=== PATIENT | female | born 2000 | race Caucasian/White ===

== ENCOUNTER → 2022-10-02 | Outpatient (CLI) | payer OTHER, SELFPAY ==
[2022-10-02 18:31] LABS: Amphetamine Urine VISTA NEGATIVE (<1000 ng/mL); Barbiturate Urine VISTA NEGATIVE (< 200 ng/mL); Benzodiazepine Urine VISTA NEGATIVE (< 200 ng/mL); Cocaine Urine VISTA NEGATIVE (< 300 ng/mL); Ecstacy Urine VISTA NEGATIVE (< 500 ng/mL); Methadone Urine VISTA NEGATIVE (< 300 ng/mL); PCP Urine VISTA NEGATIVE (< 25 ng/mL); THC Urine VISTA NEGATIVE (< 50 ng/mL); Vista UDS pH Range 7
[2022-10-06 00:07] LABS: Chlamydia By Nucleic Acid AMP Negative (Negative)
[2022-10-07 14:42] LABS: Gonococcus By Nucleic Acid AMP Negative (Negative)
[2022-10-12 18:22] LABS: HPV Reflexed? NOT INDICATED
== END | disposition home or self-care (01) ==
PROVIDERS: Referring Provider Obstetrics & Gynecology; Visit Provider Obstetrics & Gynecology
DX: Z34.00 Encounter for supervision of normal first pregnancy, unspecified trimester (principal)
CPT/HCPCS: 80307; 87086; 87491; 87591; 88175; G0145

== ENCOUNTER → 2022-11-08 | Outpatient (CLI) | payer OTHER, SELFPAY ==
[2022-11-08 14:08] LABS: Absolute Lymphocyte Count 1.75 X10^3/uL (0.83-4.51); Absolute Neutrophil Count 7.7 X10^3/uL (2.0-7.7); Basophil# 0.06 X10^3/uL; Basophil% 0.6 % (0-1); Eosinophil# 0.08 X10^3/uL; Eosinophils% 0.8 % (0-5); Hemoglobin 12.6 g/dL (12.0-15.0); Lymphocyte # 1.75 X10^3/ul (0.83-4.51); Lymphocyte % 16.8 % (19-41); Mean Corp Hgb Conc 34.1 g/dL (32-36); Mean Corpuscular Hgb 31.3 pg (27.0-32.0); Monocyte# 0.74 X10^3/uL; Monocyte% 7.1 % (0-10); NRBC Flagged by Analyzer 0 % (0-5); Neutrophil # 7.73 X10^3/uL (2.7-7.7); Neutrophil % 74.3 % (47-70); Platelet Count 202 K/mm3 (150-450); RBC Distribution Width CV 13.6 % (11.6-14.6); RBC Distribution Width SD 45.9 fl (35.1-43.9); Red Blood Count 4.02 M/mm3 (4.2-5.4); White Blood Count 10.4 K/mm3 (4.4-11.0)
[2022-11-08 15:27] LABS: HIV - WCH Non-Reactive (Nonreactive); Hepatitis B Surface Antigen Non-Reactive (Nonreactive); Hepatitis C Antibody Non-Reactive (Nonreactive); Rubella IgG Non-Reactive (Nonreactive); Syphilis Antibodies Non-reactive
== END | disposition home or self-care (01) ==
LOC: LAB 13:28
PROVIDERS: Obstetrics & Gynecology; Visit Provider Registered Nurse
DX: Z34.00 Encounter for supervision of normal first pregnancy, unspecified trimester (principal)
CPT/HCPCS: 36415; 85025; 86703; 86762; 86780; 86803; 86850; 86900; 86901; 87340

== ENCOUNTER → 2022-12-04 | Outpatient (CLI) | payer SELFPAY, OTHER ==
--- NOTE | 2022-12-04 12:27 | US_ITS ---
STUDY: SECOND AND THIRD TRIMESTER OBSTETRICAL ULTRASOUND REASON FOR EXAM: Female, 21 years old anatomy. LMP: July 24, 2022 TECHNIQUE: Transabdominal and Transvaginal TECHNICAL QUALITY: Adequate. PRIOR ULTRASOUND: None. FINDINGS: There is a single intrauterine fetus. The fetus is in a breech presentation. There is demonstrated cardiac activity with a heart rate of 152 bpm. There is a normal amniotic fluid volume. The largest amniotic fluid pocket measures 4.4 cm. The placenta is fundal, anterior and left lateral and not low lying. There are Grade 0 placental changes. The cervix measures 3.78 cm in length. The bilateral adnexal regions are normal. BIOMETRY: BPD: 4.33 cm: 19 weeks, 1 days HC: 16.36 cm: 19 weeks, 1 days AC: 14.15 cm: 19 weeks, 4 days FL: 2.78 cm: 18 weeks, 3 days CI: 74.86 FL/BPD: 64.2 FL/HC: 16.98 FL/AC: 19.64 HC/AC: 1.16 age by current US: 19 weeks, 0 days. ALMA by current US: April 29, 2023. Estimated weight: 273 grams, +/- 41 grams, 50 %. Age by LMP: 19 weeks, 0 days. ALMA by LMP: April 30, 2020. ANATOMY: Gender: Male Cranium: Normal lateral ventricles. Normal choroid plexus. Normal cerebellum. Normal cisterna magna. Normal face, nose and lips. Chest: Normal 4-chamber heart. Abdomen/Pelvis: Normal diaphragm. Normal stomach. Normal abdominal wall. Normal cord insertion. Normal 3 vessel cord. Normal kidneys. Normal bladder. Spine: Normal cervical spine. Normal thoracic spine. Normal lumbar spine. Normal sacrum. Extremities: Normal bilateral upper extremities. Normal bilateral lower extremities. US/OB Anatomy Scan IMPRESSION: 1. Live single intrauterine at 19 weeks, 1 day. ALMA is April 29, 2023. 2. EFW of 273 g. 3. Adequate amniotic fluid. 4. Fundal/anterior/left lateral grade 0 placenta. 5. Breech presentation. 6. No visualized anatomic abnormality. Electronically Signed: Curtis Kent DO at 16:06 [facility] ,
== END | disposition home or self-care (01) ==
PROVIDERS: Visit Provider Registered Nurse
DX: Z34.02 Encounter for supervision of normal first pregnancy, second trimester (principal); Z3A.14 14 weeks gestation of pregnancy
CPT/HCPCS: 76805; 76817

== ENCOUNTER → 2023-02-11 | Outpatient (CLI) | payer OTHER, SELFPAY ==
[2023-02-11 12:38] LABS: Absolute Lymphocyte Count 1.75 X10^3/uL (0.83-4.51); Absolute Neutrophil Count 8.9 X10^3/uL (2.0-7.7); Basophil# 0.09 X10^3/uL; Basophil% 0.7 % (0-1); Eosinophil# 0.12 X10^3/uL; Hematocrit 34.2 % (37-47); Hemoglobin 11.4 g/dL (12.0-15.0); Lymphocyte # 1.75 X10^3/ul (0.83-4.51); Lymphocyte % 14.4 % (19-41); Mean Corp Hgb Conc 33.3 g/dL (32-36); Mean Corpuscular Hgb 32.1 pg (27.0-32.0); Mean Corpuscular Volume 96.3 fL (81-99); Mean Platelet Vol. 10.2 fl (6.2-12.0); Monocyte# 0.84 X10^3/uL; Monocyte% 6.9 % (0-10); NRBC Flagged by Analyzer 0 % (0-5); Neutrophil # 8.88 X10^3/uL (2.7-7.7); Neutrophil % 73.1 % (47-70); Platelet Count 174 K/mm3 (150-450); RBC Distribution Width CV 13.2 % (11.6-14.6); RBC Distribution Width SD 46.3 fl (35.1-43.9); Red Blood Count 3.55 M/mm3 (4.2-5.4); White Blood Count 12.2 K/mm3 (4.4-11.0)
[2023-02-11 12:53] LABS: Glucose Challenge Gest 1H 50g 149 mg/dL (70-140)
[2023-02-11 13:27] LABS: HIV - WCH Non-Reactive (Nonreactive); Syphilis Antibodies Non-reactive
== END | disposition home or self-care (01) ==
LOC: LAB 11:17
PROVIDERS: Referring Provider Advanced Practice Midwife; Visit Provider Advanced Practice Midwife
DX: O26.899 Other specified pregnancy related conditions, unspecified trimester (principal); Z67.91 Unspecified blood type, Rh negative; Z3A.24 24 weeks gestation of pregnancy
CPT/HCPCS: 36415; 82950; 85025; 86703; 86780; 86900; 86901

== ENCOUNTER → 2023-02-20 | Outpatient (CLI) | payer OTHER, SELFPAY ==
[2023-02-20 08:23] LABS: Glucose GTT-Gestation. Fasting 88 mg/dL (<105)
[2023-02-20 08:42] LABS: Glucose GTT-Gestational 1 Hr 177 mg/dL (<190)
[2023-02-20 10:08] LABS: Glucose GTT-Gestational 2 Hr 165 mg/dL (<165)
[2023-02-20 11:17] LABS: Glucose GTT-Gestational 3 Hr 124 L (<145)
== END | disposition home or self-care (01) ==
LOC: LAB 06:57
PROVIDERS: Referring Provider Advanced Practice Midwife; Visit Provider Advanced Practice Midwife
DX: Z13.1 Encounter for screening for diabetes mellitus (principal)
CPT/HCPCS: 36415; 82951; 82952

== ENCOUNTER → 2023-04-04 | Outpatient (CLI) | payer OTHER, SELFPAY | END | disposition home or self-care (01) | LOC: LABSPEC 16:33 | PROVIDERS: Visit Provider Registered Nurse | DX: Z34.90 Encounter for supervision of normal pregnancy, unspecified, unspecified trimester (principal) | CPT/HCPCS: 87081 ==

== ENCOUNTER 2023-04-15 06:05 | Outpatient (CLI) | payer OTHER, SELFPAY ==
[2023-04-15 06:22] VITALS: TEMP 36.6; O2SAT 99
[2023-04-15 06:23] VITALS: BP 128/81; PULSE 107
[2023-04-15 06:24] VITALS: BMI 25.0
[2023-04-15 06:59] LABS: ROM Internal Control Test YES-OK TO RESULT pt. (Internal QC); ROM Patient Test Negative (Negative); Record Kit Lot#, ROM+ K1374
--- NOTE | 2023-04-15 08:27 | OB.TRI.HP_ITS ---
HPI - General HPI Narrative SUNIL GARCIA, is a 22 F who presents at 37+6 with contractions. denies lof/vb. good fm. Maternal Data Information ALMA Calculator Estimated Delivery Date Method Current WG Current Estimate 04/30/23 LMP (Certain) 37w 6d Other Estimates 04/27/23 Ultrasound #1 38w 2d PFSH PFSH Medical History Hx of thyroid disease Hx: UTI (urinary tract infection) Home Medications multivitamin no.47-iron fum 27 mg-folate no.1 1 mg-dha 300 mg capsule (PNV-DHA) 1 cap PO DAILY 09/25/22 [History Last Taken 04/14/23 20:00] Allergy/AdvReac Type Severity Reaction Status Date / Time No Known Allergies Allergy Verified 04/15/23 06:40 Family History Grandfather Lung cancer, Onset Age: 70 Paternal Social History adopted: No household members: spouse housing: house current occupational status: unemployed current occupation: housewife pets and animals: No history of recent travel: No sexually active: Yes Smoking Status: Never smoker alcohol intake: never substance use type: does not use well-balanced diet: daily or most days caffeine: No eating out: rarely or never during the past year weight has: remained stable what type of physical activity do you participate in: none parveen/sabianist: [facility] seatbelt use: sometimes do you feel safe at home: Yes additional social history: [place] - [employer] History 1 Elective abortions Hx Para 0 Spontaneous abortions Hx # Term Pregnancies Ectopic pregnancies Hx # Pregnancies Multiple births # of living children Visit Details Expected Delivery Route/Plan Labor Preferences- CB/BF classes: recommended labor support person: [place] labor intervention preferences: [] pain management options preferred: [] cut cord/dad catch: yes :yes PP control planned: nfp/condoms discussed possible routes of delivery and associated risks: special requests: [] Plans Covid status: declines Flu vaccine: declines Tdap vaccine: declines Rhogam: will need at 28 weeks, PRN for bleeding and pp LARC form signed: completed movement and labor precautions reviewed. Problem list reviewed and updated with the most current plan of care details and appropriate orders placed. Relevant counseling for the gestational age provided. Continue routine care and follow up unless otherwise noted in visit notes/problem list details OB Flowsheet Initial Weight: Not Recorded Date -?-?-?-?-?-?-?-?-?-?-?-?- EGA Weight BP Urine Prot -?-?-?-?-?-?-?-?-?-?-?-?- Glucose FHR FuHt Pres Dilation -?-?-?-?-?-?-?-?-?-?-?-?- Effaced St Visit Note 10/02/22 -?-?-?-?-?-?-?-?-?-?-?-?- 10w 0d 112 lb 2 oz 119/75 -?-?-?-?-?-?-?-?-?-?-?-?- 183 -?-?-?-?-?-?-?-?-?-?-?-?- JV- single live IUP measuring 10 weeks 3 days. CRL consistent with LMP. pap and gc/ct collected. 10/30/22 -?-?-?-?-?-?-?-?-?-?-?-?- 14w 0d 112 lb 122/76 Negative -?--?-?-?-?-?-?-?-?-?-?-?- Negative 155 -?-?-?-?-?-?-?-?-?-?-?-?- LC- doing well. no vb/cramping. reviewed nutritional methods for constipation. will obtain nob labs next week.declines afp 11/20/22 -?-?-?-?-?-?-?-?-?-?-?-?- 17w 0d 118 lb 108/69 Negative -?-?-?-?-?-?-?-?-?-?-?-?- Negative 138 -?-?-?-?-?-?-?--?-?-?-?-?- LC- no concerns. has anatomy scheduled.no vb/cramping. 12/18/22 -?-?-?-?-?-?-?-?-?-?-?-?- 21w 0d 122 lb 121/70 Negative -?-?-?-?-?-?-?-?-?-?-?-?- Negative 153 -?-?-?-?-?-?-?-?-?-?-?-?- LC- no concerns. noted some constipation over last couple weeks. resolved. no LOF/VB/Ctx. + Flutters. 01/10/23 -?-?-?-?-?-?-?-?-?-?-?-?- 24w 2d 127 lb 115/71 Negative -?-?-?-?-?-?-?-?-?-?-?-?- Negative 150 24 -?-?-?-?-?-?-?-?-?-?-?-?- KW-no concerns. no LOF/VB/CTX. + FM. US reviewed. 02/11/23 -?-?-?-?-?-?-?-?-?-?-?-?- 28w 6d 131 lb 103/68 Negative -?-?-?-?-?-?-?-?-?-?-?-?- Negative 145 29 -?-?-?-?-?-?-?-?-?-?-?-?- SM- no vb lof go od fm no regular ctx rhogam and cbc gct today declined tdap 03/05/23 -?-?-?-?-?-?-?-?-?-?-?-?- 32w 0d 135 lb 110/68 Negative -?-?-?-?-?-?-?-?-?-?-?-?- Negative 150 31 -?-?-?-?-?-?-?-?-?-?-?-?- LC- LC- no vb/ctx/lof. good fm. having some rib discomforts and round ligament pain. charlene recommended. 03/21/23 -?-?-?-?-?-?-?-?-?-?-?-?- 34w 2d 139 lb 114/72 Negative -?-?-?-?-?-?-?-?-?-?-?-?- Negative 145 33 -?-?-?-?-?-?-?-?-?-?-?-?- LC- no vb/ctx/lo f. good fm. larc signed. 04/04/23 -?-?-?-?-?-?-?-?-?-?-?-?- 36w 2d 140 lb 111/74 Negative -?-?-?-?-?-?-?-?-?-?-?-?- Negative 140 36 0 -?-?-?-?-?-?-?-?-?-?-?-?- 20 -3 LC- no vb/ ctx/lof. good fm. mild yeast infection, not bothersome, declines treatment. gbs obtained today 04/11/23 -?-?-?-?-?-?-?-?-?-?-?-?- 37w 2d 144 lb 8 oz 111/74 Nega tive -?-?-?-?-?-?-?-?-?-?-?-?- Negative 135 36 0 -?-?-?-?-?-?-?-?-?-?-?-?- 50 -3 KW-+FM. no lof/vb. some irregular cramping/lower back pain. in ER last night with GI virus. encouraged hydration KW-+FM. no lof/vb. some irre gular cramping/lower back pain. in ER last night with GI virus. encouraged hydration. GBS neg Notes Visit Date: 11/20/22 Last Updated by: Wandy Metcalf CNM sister in law currently with a palliative care case. cardiac and genetic anomalies. NST FHR Rate Baby A Baseline: 140 Variability:: Moderate Accelerations:: 15 x 15 Decelerations:: None NST Reactive:: Yes FHR Category:: Category I Uterine Activity:: irregular Assessment & Plan (1) False labor after 37 completed weeks of gestation: COMMENT: no change in cervical exam. labor precautions given PLAN: Patient presents for triage evaluation secondary to contractions. now comfortable FHT: Moderate variability reactive no decelerations category I tracing Loop: irregular Contractions Assessment and plan: Reactive NST, reassuring maternal and status patient discharged to home to follow-up in office on . See problem list details for additional plan information. Charges/Coding Procedures Urinary/Genital 52xxx-59xxx: 59496-58 non-stress test Interp Multi Select Codes Urinary/Genital Urinary/Genital CPT Codes: 99761-60 non-stress test Interp
== END 2023-04-15 08:45 | disposition home or self-care (01) ==
LOC: WPOUT 06:11 → WP 06:12
PROVIDERS: Referring Provider Obstetrics & Gynecology; Visit Provider Obstetrics & Gynecology
DX: O47.1 False labor at or after 37 completed weeks of gestation (principal); Z3A.37 37 weeks gestation of pregnancy
CPT/HCPCS: 59025; 59050; 84112; 99221; G0378

== ENCOUNTER 2023-04-22 10:15 | Inpatient (IN) | payer SELFPAY, OTHER ==
[2023-04-22] VITALS (51 sets, daily range): BP systolic 63–133; BP diastolic 32–79; PULSE 65–120; TEMP 36.3–36.6; O2SAT 96–100; BMI 25.0
[2023-04-22 11:18] LABS: Absolute Lymphocyte Count 2.06 X10^3/uL (0.83-4.51); Basophil# 0.06 X10^3/uL; Basophil% 0.5 % (0-1); Eosinophil# 0.13 X10^3/uL; Eosinophils% 1.1 % (0-5); Hematocrit 39.4 % (37-47); Hemoglobin 13.5 g/dL (12.0-15.0); Lymphocyte # 2.06 X10^3/ul (0.83-4.51); Lymphocyte % 17.9 % (19-41); Mean Corp Hgb Conc 34.3 g/dL (32-36); Mean Corpuscular Hgb 32.5 pg (27.0-32.0); Mean Corpuscular Volume 94.9 fL (81-99); Mean Platelet Vol. 11.1 fl (6.2-12.0); Monocyte# 1.05 X10^3/uL; Monocyte% 9.1 % (0-10); NRBC Flagged by Analyzer 0 % (0-5); Neutrophil # 8.02 X10^3/uL (2.7-7.7); Neutrophil % 69.8 % (47-70); Platelet Count 171 K/mm3 (150-450); RBC Distribution Width CV 13.2 % (11.6-14.6); RBC Distribution Width SD 45.3 fl (35.1-43.9); Red Blood Count 4.15 M/mm3 (4.2-5.4); White Blood Count 11.5 K/mm3 (4.4-11.0)
[2023-04-22 12:03] LABS: Syphilis Antibodies Non-reactive
--- NOTE | 2023-04-22 12:46 | HP.PCM.OB_ITS ---
HPI - General General Date of Admission: 04/22/23 HPI Narrative SUNIL GARCIA, is a 22 F who presents G1, P0 at 38+6 with leaking of fluid since 7 AM. Was noted to be green-tinged. Positive movement, denies vaginal bleeding. Noted some tightening but no consistent contractions. course uncomplicated. rh negative status, received rhogam. GBS negative Maternal Data Information ALMA Calculator Estimated Delivery Date Method Current WG Current Estimate 04/30/23 LMP (Certain) 38w 6d Other Estimates 04/27/23 Ultrasound #1 39w 2d PFSH PFSH Medical History (Updated 04/22/23 @ 12:49 by Wandy Metcalf CNM) Hx: UTI (urinary tract infection) Home Medications multivitamin no.47-iron fum 27 mg-folate no.1 1 mg-dha 300 mg capsule (PNV-DHA) 2 cap PO DAILY 09/25/22 [History Last Taken 1 Day Ago ~04/21/23] Magnesium Complex 2 cap PO.IVFORM DAILY 04/22/23 [History Last Taken 1 Day Ago ~04/21/23] Allergy/AdvReac Type Severity Reaction Status Date / Time No Known Allergies Allergy Verified 04/22/23 11:43 Family History Grandfather Lung cancer, Onset Age: 70 Paternal Social History adopted: No household members: spouse housing: house current occupational status: unemployed current occupation: housewife pets and animals: No history of recent travel: No sexually active: Yes Smoking Status: Never smoker alcohol intake: never substance use type: does not use well-balanced diet: daily or most days caffeine: No eating out: rarely or never during the past year weight has: remained stable what type of physical activity do you participate in: none parveen/zoroastrianism: [place] seatbelt use: sometimes do you feel safe at home: Yes additional social history: [place] - [employer] History 1 Elective abortions Hx Para 0 Spontaneous abortions Hx # Term Pregnancies Ectopic pregnancies Hx # Pregnancies Multiple births # of living children Visit Details Expected Delivery Route/Plan Labor Preferences- CB/BF classes: recommended labor support person: [place] labor intervention preferences: [] pain management options preferred: [] cut cord/dad catch: yes :yes PP control planned: nfp/condoms discussed possible routes of delivery and associated risks: special requests: [] Plans Covid status: declines Flu vaccine: declines Tdap vaccine: declines Rhogam: will need at 28 weeks, PRN for bleeding and pp LARC form signed: completed movement and labor precautions reviewed. Problem list reviewed and updated with the most current plan of care details and appropriate orders placed. Relevant counseling for the gestational age provided. Continue routine care and follow up unless otherwise noted in visit notes/problem list details OB Flowsheet Initial Weight: Not Recorded Date -?-?-?-?-?-?-?-?-?-?-?-?- EGA Weight BP Urine Prot -?-?-?-?-?-?-?-?-?-?-?-?- Glucose FHR FuHt Pres Dilation -?-?-?-?-?-?-?-?-?-?-?-?- Effaced St Visit Note 10/02/22 -?-?-?-?-?-?-?-?-?-?-?-?- 10w 0d 112 lb 2 oz 119/75 -?-?-?-?-?-?-?-?-?-?-?-?- 183 -?-?-?-?-?-?-?-?-?-?-?-?- JV- single live IUP measuring 10 weeks 3 days. CRL consistent with LMP. pap and gc/ct collected. 10/30/22 -?-?-?-?-?-?-?-?-?-?-?-?- 14w 0d 112 lb 122/76 Negative -?-?--?-?-?-?-?-?-?-?-?-?- Negative 155 -?-?-?-?-?-?-?-?-?-?-?-?- LC- doing well. no vb/cramping. reviewed nutritional methods for constipation. will obtain nob labs next week.declines afp 11/20/22 -?-?-?-?-?-?-?-?-?-?-?-?- 17w 0d 118 lb 108/69 Negative -?-?-?-?-?-?-?-?-?-?-?-?- Negative 138 -?-?-?-?-?-?-?-?--?-?-?-?- LC- no concerns. has anatomy scheduled.no vb/cramping. 12/18/22 -?-?-?-?-?-?-?-?-?-?-?-?- 21w 0d 122 lb 121/70 Negative -?-?-?-?-?-?-?-?-?-?-?-?- Negative 153 -?-?-?-?-?-?-?-?-?-?-?-?- LC- no concerns. noted some constipation over last couple weeks. resolved. no LOF/VB/Ctx. + Flutters. 01/10/23 -?-?-?-?-?-?-?-?-?-?-?-?- 24w 2d 127 lb 115/71 Negative -?-?-?-?-?-?-?-?-?-?-?-?- Negative 150 24 -?-?-?-?-?-?-?-?-?-?-?-?- KW-no concerns. no LOF/VB/CTX. + FM. US reviewed. 02/11/23 -?-?-?-?-?-?-?-?-?-?-?-?- 28w 6d 131 lb 103/68 Negative -?-?-?-?-?-?-?-?-?-?-?-?- Negative 145 29 -?-?-?-?-?-?-?-?-?-?-?-?- SM- no vb lof go od fm no regular ctx rhogam and cbc gct today declined tdap 03/05/23 -?-?-?-?-?-?-?-?-?-?-?-?- 32w 0d 135 lb 110/68 Negative -?-?-?-?-?-?-?-?-?-?-?-?- Negative 150 31 -?-?-?-?-?-?-?-?-?-?-?-?- LC- LC- no vb/ctx/lof. good fm. having some rib discomforts and round ligament pain. charlene recommended. 03/21/23 -?-?-?-?-?-?-?-?-?-?-?-?- 34w 2d 139 lb 114/72 Negative -?-?-?-?-?-?-?-?-?-?-?-?- Negative 145 33 -?-?-?-?-?-?-?-?-?-?-?-?- LC- no vb/ctx/lo f. good fm. larc signed. 04/04/23 -?-?-?-?-?-?-?-?-?-?-?-?- 36w 2d 140 lb 111/74 Negative -?-?-?-?-?-?-?-?-?-?-?-?- Negative 140 36 0 -?-?-?-?-?-?-?-?-?-?-?-?- 20 -3 LC- no vb/ ctx/lof. good fm. mild yeast infection, not bothersome, declines treatment. gbs obtained today 04/11/23 -?-?-?-?-?-?-?-?-?-?-?-?- 37w 2d 144 lb 8 oz 111/74 Nega tive -?-?-?-?-?-?-?-?-?-?-?-?- Negative 135 36 0 -?-?-?-?-?-?-?-?-?-?-?-?- 50 -3 KW-+FM. no lof/vb. some irregular cramping/lower back pain. in ER last night with GI virus. encouraged hydration KW-+FM. no lof/vb. some irre gular cramping/lower back pain. in ER last night with GI virus. encouraged hydration. GBS neg 04/18/23 -?-?-?-?-?-?-?-?-?-?-?-?- 38w 2d 144 lb 6 oz 109/75 Nega tive -?-?-?-?-?-?-?-?-?-?-?-?- Negative 140 36 0 -?-?-?-?-?-?-?-?-?-?-?-?- 50 -2 KW- +FM. n o lof/vb/ct. labor precautions. Notes Visit Date: 11/20/22 Last Updated by: Wandy Metcalf, JAMIEM sister in law currently with a palliative care case. cardiac and genetic anomalies. NST FHR Rate Baby A Baseline: 150 Variability:: Moderate Accelerations:: 15 x 15 Decelerations:: None NST Reactive:: Yes FHR Category:: Category I ROS Cardiovascular Cardiovascular: Denies abdominal pain, chest pain, diaphoresis or dyspnea Respiratory/Chest Respiratory/Chest: Denies change in mental status, chest congestion, chest tightness, cough, shortness of breath at rest, shortness of breath with exertion, breast mass, breast pain, breast skin changes, breast swelling, change in breast shape or nipple discharge Genitourinary Genitourinary: Reports change in urinary stream Musculoskeletal Musculoskeletal: Reports none Integumentary Integumentary: Reports none Neurologic Neurologic: Reports none Psychiatric Psychiatric: Reports none Endocrine Endocrinology: Reports none Hematologic/Lymphatic Hematologic/Lymphatic: Reports none Allergic/Immunologic Allergic/Immunologic: Reports none Vital Signs Vital Signs Vital Signs: 04/22/23 09:58 04/22/23 09:58 04/22/23 09:57 Temperature Pulse Rate 113 H Blood Pressure 110/71 BP Systolic 110 BP Diastolic 71 Pulse Ox 98 04/22/23 10:00 Temperature 97.5 F L Pulse Rate Blood Pressure BP Systolic BP Diastolic Pulse Ox Weight Weight: 141 lb Body Mass Index (BMI) 25.0 Physical Exam Const alert, oriented x3 and no apparent distress General Appearance: cooperative, comfortable and well kempt Orientation / Consciousness: awake and oriented to person Exam Limitations: no limitations HEENT normocephalic Neck full ROM Chest inspection of chest normal Resp normal respiratory effort, normal air movement and no retractions Effort and Inspection: able to speak in complete sentences and symmetric chest movement Cardio regular rate Peripheral Pulses: pulses 2+ throughout GI normal to inspection, nondistended, normoactive bowel sounds Inspection: gravid no CVA tenderness and appearance of the vagina normal External Female Exam: normal appearance of the urethra; Negative for external lesion OB / External & Speculum: external exam normal Manual OB Exam: estimated gestational size appropriate and presentation cephalic Uterus Palpation: Negative for uterus tender Extremity normal to inspection Skin no rashes or lesions noted Neuro deep tendon reflexes 2+ bilaterally and gait normal Motor Exam: strength 5/5 throughout and clonus absent Psych Activity / Motor Behavior: appropriate eye contact Speech: normal speech Labs Labs Labs: Blood Type O NEGATIVE Antibody Screen NEGATIVE Hct 39.4 % (37-47) Hgb 13.5 g/dL (12.0-15.0) Obstetrics US Syphilis Total Ab Non-reactive Rubella IgG Antibody Non-Reactive (Nonreactive) Hep Bs Antigen Non-Reactive (Nonreactive) Chlamydia DNA (MARIAH) Negative (Negative) Neisseria gonorrhoeae DNA (MARIAH) Negative (Negative) HIV 1&2 Antibody Non-Reactive (Nonreactive) Glucose 1 Hr 50 gm 149 mg/dL (70-140) H Assessment & Plan (1) : QUALIFIERS: Weeks of gestation: 38 weeks Qualified Code(s): Z3A.38 - 38 weeks gestation of COMMENT: GBS negative. normal anatomy scan. discussed genetic & carrier testing- declines at new ob (2) Supervision of normal first : QUALIFIERS: Trimester: second trimester Qualified Code(s): Z34.02 - Encounter for supervision of normal first , second trimester COMMENT: PRR , ALMA 04/30/23, boy [employer] (3) Rh negative status during : COMMENT: rhogam at 28 weeks, prn for bleeding and pp. (4) SROM (spontaneous rupture of membranes): COMMENT: meconium, pedi at delivery PLAN: Plan Patient presents with SROM since 0700 plan expectant management for , pitocin PRN if no cervical change Pain management: plans epidural. GBS negative. Management of any complications: none I have reviewed the [facility] and made any clinically relevant updates. reviewed exam, poc and admission with Dr. Corbett. agrees with above plan.
[2023-04-22] MEDS: Oxytocin 15 Units/NS 250ml 15 UNITS/250 ML IV.SOLN 2 UNITS IV (13:28)
[2023-04-22] MEDS: Lactated Ringers 1,000 ML 50 ML IV (13:28)
[2023-04-22] MEDS: LACTATED RINGERS 500 ML 999 ML IV ×3 (14:21→22:40)
[2023-04-22] MEDS: miSOPROStol 25 MCG TABLET PO (15:54)
[2023-04-22] MEDS: fentaNYL-bupivacaine (epidural) 100 ML BAG EPIDURAL (21:24)
[2023-04-22] MEDS: Ondansetron 4 MG/2 ML Vial IV (21:36)
[2023-04-23] VITALS (69 sets, daily range): BP systolic 81–134; BP diastolic 46–80; PULSE 76–141; RESP 16; TEMP 36.6–37.1; O2SAT 91–100
[2023-04-23] MEDS: Lactated Ringers 1,000 ML 200 ML IV ×2 (02:35→07:02)
[2023-04-23] MEDS: 0.9% Saline Lock 10 ML Syringe IV (02:47)
[2023-04-23] MEDS: Ondansetron 4 MG/2 ML Vial IV ×2 (02:47→07:30)
[2023-04-23] MEDS: LACTATED RINGERS 500 ML 999 ML IV (03:24)
[2023-04-23] MEDS: LACTATED RINGERS 500 ML IV (03:37)
[2023-04-23] MEDS: fentaNYL-bupivacaine (epidural) 100 ML BAG EPIDURAL (07:02)
[2023-04-23] MEDS: Methylergonovine 0.2 MG/ML Ampul IM (08:29)
[2023-04-23] MEDS: Oxytocin 15 Units/NS 250ml 15 UNITS/250 ML IV.SOLN 83 UNITS IV (08:57)
--- NOTE | 2023-04-23 09:52 | EX.PCM.OBRPT ---
Assessment & Plan (1) False labor after 37 completed weeks of gestation: COMMENT: no change in cervical exam. labor precautions given (2) Abnormal glucose level: COMMENT: 3 HR GTT-Normal (3) Rh negative status during : COMMENT: rhogam at 28 weeks, prn for bleeding and pp. (4) Supervision of normal first : QUALIFIERS: Trimester: second trimester Qualified Code(s): Z34.02 - Encounter for supervision of normal first , second trimester COMMENT: PRR , ALMA 04/30/23, boy [employer] (5) : QUALIFIERS: Weeks of gestation: 38 weeks Qualified Code(s): Z3A.38 - 38 weeks gestation of COMMENT: GBS negative. normal anatomy scan. discussed genetic & carrier testing- declines at new ob (6) SROM (spontaneous rupture of membranes): COMMENT: meconium, pedi at delivery if no cervical change in 6 hours will start cytotec for cervical ripening. Maternal Data Information ALMA Calculator Estimated Delivery Date Method Current WG Current Estimate 04/30/23 LMP (Certain) 39w 0d Other Estimates 04/27/23 Ultrasound #1 39w 3d Final ALMA: 04/30/23 Final ALMA Source: LMP Gestational age: 39 weeks 0 days [place] Doctor Who Attended Delivery: Yun Floyd Vaginal Delivery Operative Information Date of Procedure: 04/23/23 Pre-Operative Diagnosis: @ 39 weeks 0 days, srom , mecoinum stained fluid Post-Operative Diagnosis: @ 39 weeks 0 days, srom , mecoinum stained fluid Surgery / Procedure Performed: Spontaneous Vaginal Delivery Type of Anesthesia: Epidural Drain: Damon to straight drain Estimated Blood Loss: 200cc Findings Description of Procedure: Patient began pushing and delivered the head in the DAVION presentation. The head was delivered atraumatically. The anterior and posterior shoulders delivered without complication followed by the rest of the and the was placed on the maternal abdomen. Delayed cord clamping was employed for approximately 60 seconds. Cord was clamped and cut and gentle traction was applied to the cord and the placenta delivered spontaneously immediately following it was noted to be intact with three-vessel cord. The perineum and vagina were inspected and noted to have a 1st degree perineal laceration. EBL was 200cc. Patient and tolerated delivery well. Presentation: Vertex Amniotic Fluid Description: Thick meconium Placental Delivery Description: Spontaneous Placenta Disposition: [facility] Specimen(s) Removed: placenta Cord Vessel Description: 3 Vessels Cord Entanglement: None A Gender: Male (1 minute): 7 (5 minute): 8 Delayed Cord Clamping: No Post Vaginal Delivery Medications Given After Delivery: IV Pitocin and IM Methergin Episiotomy Description: None Laceration: 1st degree Complication Complications: None Multi Select Codes Urinary/Genital Urinary/Genital CPT Codes: 51741 Vaginal Delivery [facility]
--- NOTE | 2023-04-23 09:55 | DCINST_ITS ---
Discharge Instructions Diet Discharge Diet: No restrictions Activity Discharge Activity: Return to Normal Activity, May Not Drive (while taking narcotic pain medications.) and May Shower May resume sexual activity in: 4-6 weeks Dressing / Incision Call your doctor if your incision/area has: Continuous Slow Oozing, Sudden Increased Bleeding, Increased Pain/ Swelling, Increased Redness and Foul Smelling Discharge Follow Up Care Please Follow Up With: Dominique Corbett, DO When: Call [phone] to make an appointment with your doctor in 6 weeks. If you had elevated blood pressure or 4th degree laceration, you will need to be seen in 2 weeks. Test Results: Test results from this visit will be discussed in further detail at your follow- up appointment, if applicable. Discharge Plan Admission Admit Date/Time: 04/22/23 10:15 Attending Provider: Dominique Corbett Primary Care Provider: Care Physician,No Primary Consulting Providers: Wandy Metcalf Discharge Orders/Prescriptions Prescriptions: No Action PNV-DHA 27 mg iron-1 mg -300 mg capsule 2 cap PO DAILY Magnesium Complex 2 cap PO.IVFORM DAILY Referrals / Follow Up: Care Physician,No Primary [Primary Care Provider] -
[2023-04-23] MEDS: Ibuprofen 600 MG Tablet PO (14:42)
[2023-04-23] MEDS: Acetaminophen 500 MG Tablet 1000 MG PO (21:07)
[2023-04-24 00:22] VITALS: BP 103/53; PULSE 100; RESP 16; TEMP 36.6; O2SAT 96
[2023-04-24 04:55] VITALS: BP 90/53; PULSE 83; RESP 16; TEMP 36.7; O2SAT 97
[2023-04-24 08:35] VITALS: BP 96/54; PULSE 100; RESP 15; TEMP 36.6; O2SAT 98
--- NOTE | 2023-04-24 08:44 | PCM.PN.OB ---
Subjective Subjective Patient doing well without complaints. Tolerating PO. Ambulating and voiding without difficulty. Feeding well. Denies chest pain, shortness of breath, calf pain/swelling, fevers, chills, lightheadedness. Objective Data Objective Data Vital Signs: Vital Signs Temp Pulse Resp BP Pulse Ox O2 Del Method 97.8 F 100 15 96/54 L 98 Room Air 04/24/23 08:35 04/24/23 08:35 04/24/23 08:35 04/24/23 08:35 04/24/23 08:35 04/24/23 08:35 Oxygen Delivery Method Room Air Weight: 141 lb Body Mass Index (BMI) 25.0 Intake & Output: Intake and Output for Last 24 Hours 04/22/23 04/23/23 04/24/23 23:59 23:59 23:59 Intake Total 1873.24 / 1873.24 3287.56 / 3287.56 Output Total 2850 / 2850 Balance 1873.24 / 1873.24 437.56 / 437.56 Lab / Micro Data Result Diagrams: 04/22/23 11:00 Physical Exam Const alert and no apparent distress Neck full ROM Chest inspection of chest normal Nipple/Areola: nipples/areola normal Resp normal respiratory effort, normal air movement and no retractions Cardio regular rate and regular rhythm GI normal to inspection, nondistended, normoactive bowel sounds GI Narrative: fundus firm, 1 below u, mild lochia. no clots Extremity normal to inspection, full ROM, no calf tenderness and no pedal edema Skin no rashes or lesions noted Psych mental status grossly normal Assessment & Plan (1) (spontaneous vaginal delivery): COMMENT: ROXI, 39weeks. [place] Gentile PLAN: s/p PPD # 1 1. routine post delivery care 2. breast feeding- support given 3. rh positive 4. rubella immune 5. d/c home today for early discharge. has follow up
[2023-04-24 12:29] VITALS: BP 99/58; PULSE 103; RESP 15
== END 2023-04-24 13:55 | disposition home or self-care (01) | DRG 807 ==
LOC: WP 10:33 → WPOUT 04-23 10:41
PROVIDERS: Registered Nurse; Admitting Provider Obstetrics & Gynecology; Referring Provider Obstetrics & Gynecology; Visit Provider Obstetrics & Gynecology
DX: O99.814 Abnormal glucose complicating childbirth (principal); Z37.0 Single live birth; O77.0 Labor and delivery complicated by meconium in amniotic fluid; Z3A.39 39 weeks gestation of pregnancy
CPT/HCPCS: 59025; 59050; 76815; 85025; 86780; 86850; 86870; 86900; 86901; 99221; J7120; A4216; G0378; J2405

== ENCOUNTER → 2024-04-02 | Outpatient (CLI) | payer OTHER, SELFPAY ==
[2024-04-02 10:15] LABS: Absolute Lymphocyte Count 1.93 X10^3/uL (0.83-4.51); Absolute Neutrophil Count 5.3 X10^3/uL (2.0-7.7); Basophil# 0.05 X10^3/uL; Basophil% 0.6 % (0-1); Eosinophils% 1.2 % (0-5); Hematocrit 38.7 % (37-47); Hemoglobin 13.2 g/dL (12.0-15.0); Lymphocyte # 1.93 X10^3/ul (0.83-4.51); Lymphocyte % 23.9 % (19-41); Mean Corp Hgb Conc 34.1 g/dL (32-36); Mean Corpuscular Hgb 30.6 pg (27.0-32.0); Mean Corpuscular Volume 89.8 fL (81-99); Mean Platelet Vol. 10.4 fl (6.2-12.0); Monocyte# 0.65 X10^3/uL; NRBC Flagged by Analyzer 0 % (0-5); Neutrophil # 5.34 X10^3/uL (2.7-7.7); Neutrophil % 66.1 % (47-70); Platelet Count 219 K/mm3 (150-450); RBC Distribution Width CV 13.3 % (11.6-14.6); RBC Distribution Width SD 44.3 fl (35.1-43.9); Red Blood Count 4.31 M/mm3 (4.2-5.4); White Blood Count 8.1 K/mm3 (4.4-11.0)
[2024-04-02 11:17] LABS: HIV - WCH Non-Reactive (Nonreactive); Hepatitis B Surface Antigen Non-Reactive (Nonreactive); Hepatitis C Antibody Non-Reactive (Nonreactive); Rubella IgG Non-Reactive (Nonreactive); Syphilis Antibodies Non-reactive
[2024-04-07 21:07] LABS: Chlamydia By Nucleic Acid AMP Negative (Negative); Gonococcus By Nucleic Acid AMP Negative (Negative)
== END | disposition home or self-care (01) ==
PROVIDERS: Referring Provider Advanced Practice Midwife; Visit Provider Advanced Practice Midwife
DX: O09.90 Supervision of high risk pregnancy, unspecified, unspecified trimester (principal); Z3A.00 Weeks of gestation of pregnancy not specified
CPT/HCPCS: 36415; 85025; 86703; 86762; 86780; 86803; 86850; 86900; 86901; 87086; 87088; 87340; 87491; 87591

== ENCOUNTER → 2024-06-01 | Outpatient (CLI) | payer SELFPAY, OTHER ==
--- NOTE | 2024-06-01 15:34 | US_ITS ---
EXAM: US SECOND OR THIRD TRIMESTER , TRANSABDOMINAL AND TRANSVAGINAL CLINICAL INDICATION: anatomy TECHNIQUE: Transabdominal and endovaginal obstetrical ultrasound of the maternal pelvis and a second or third trimester with image documentation. Endovaginal imaging was used for better evaluation of the fetus and adnexa. COMPARISON: No relevant prior studies available. FINDINGS: FETUS: Single viable IUP. HEART RATE: heart rate: 160 bpm. PRESENTATION: Variable presentation. PLACENTA: Anterior placenta. No placenta previa. No abruption. AMNIOTIC FLUID: Maximal vertical pocket of amniotic fluid is 2.9 cm. ANATOMY: There is a 1.7 x 1.5 x 1.9 cm echogenic intracardiac focus (EIF) within the left ventricle. The spine is not optimally assessed. Intracranial structures to include the lateral ventricles, cerebellum, cisterna magna appear normal. The face, nose, and lips are visualized. Four-chamber heart is identified. The diaphragm, stomach, and closed abdominal wall are visualized. The umbilical cord insertion is present and there is a three-vessel cord. The urinary bladder appears normal. Normal kidneys without dilation. BIOMETRICS GESTATIONAL AGE: Estimated gestational age: 18 weeks, 2 days. ALMA: 10/31/2024. EFW: Estimated weight: 229 g (11.01%). BPD: 3.93 cm. HC: 15.02 cm. AC: 13.4 cm. FL: 2.47 cm. MATERNAL: UTERUS: No significant abnormality. No myometrial mass. CERVIX: The cervix is closed measuring 4.3 cm. ADNEXA: No significant abnormality. No adnexal masses. FREE FLUID: None. IMPRESSION: 1. Single viable IUP measuring 18 weeks, 2 days and 229 g. 2. There is a 1.7 x 1.5 x 1.9 cm echogenic intracardiac focus (EIF) within the left ventricle. EIF is considered a normal variation, but screening tests may be desirable to test for any abnormalities. 3. The spine is not optimally assessed. Consider follow-up imaging for detailed evaluation in one to 2 weeks. Electronically Signed: Miguelito Chiang DO at 23:57 EDT , EXAM: US SECOND OR THIRD TRIMESTER , TRANSABDOMINAL AND TRANSVAGINAL CLINICAL INDICATION: anatomy TECHNIQUE: Transabdominal and endovaginal obstetrical ultrasound of the maternal pelvis and a second or third trimester with image documentation. Endovaginal imaging was used for better evaluation of the fetus and adnexa. COMPARISON: No relevant prior studies available. FINDINGS: FETUS: Single viable IUP. HEART RATE: heart rate: 160 bpm. PRESENTATION: Variable presentation. PLACENTA: Anterior placenta. No placenta previa. No abruption. AMNIOTIC FLUID: Maximal vertical pocket of amniotic fluid is 2.9 cm. ANATOMY: There is a 1.7 x 1.5 x 1.9 cm echogenic intracardiac focus (EIF) within the left ventricle. The spine is not optimally assessed. Intracranial structures to include the lateral ventricles, cerebellum, cisterna magna appear normal. The face, nose, and lips are visualized. Four-chamber heart is identified. The diaphragm, stomach, and closed abdominal wall are visualized. The umbilical cord insertion is present and there is a three-vessel cord. The urinary bladder appears normal. Normal kidneys without dilation. BIOMETRICS GESTATIONAL AGE: Estimated gestational age: 18 weeks, 2 days. ALMA: 10/31/2024. EFW: Estimated weight: 229 g (11.01%). BPD: 3.93 cm. HC: 15.02 cm. AC: 13.4 cm. FL: 2.47 cm. MATERNAL: UTERUS: No significant abnormality. No myometrial mass. CERVIX: The cervix is closed measuring 4.3 cm. ADNEXA: No significant abnormality. No adnexal masses. FREE FLUID: None. US/OB Anatomy w/ Transvaginal
== END | disposition home or self-care (01) ==
LOC: US 15:32
PROVIDERS: Referring Provider Advanced Practice Midwife; Visit Provider Advanced Practice Midwife
DX: O09.90 Supervision of high risk pregnancy, unspecified, unspecified trimester (principal); Z3A.00 Weeks of gestation of pregnancy not specified
CPT/HCPCS: 76805; 76817

== ENCOUNTER → 2024-06-22 | Outpatient (CLI) | payer SELFPAY, OTHER ==
--- NOTE | 2024-06-22 15:29 | US_ITS ---
STUDY: SECOND AND THIRD TRIMESTER OBSTETRICAL ULTRASOUND - LIMITED REASON FOR EXAM: Female, 23 years old spinal views follow up LMP: 01/20/2024 PRIOR ULTRASOUND: 06/01/2024. TECHNIQUE: Transabdominal TECHNICAL QUALITY: Adequate. FINDINGS: There is a single intrauterine fetus. The fetus is in an transverse lie with the head on the maternal left side. There is demonstrated cardiac activity with a heart rate of 157 60 bpm. There is a normal amniotic fluid volume. The largest amniotic fluid pocket measures 4.2 cm. The placenta is anterior in location and is not low lying. There are Grade 1 placental changes. The cervix is closed and measures 4.6 cm length. Age by LMP: 22 weeks, 0 days. ALMA by LMP: 10/26/2024. Dedicated views of the entire spine are within normal limits. US/OB Limited (No Biometrics) IMPRESSION: Single live intrauterine gestation in transverse position. Normal appearance of the spine. Electronically Signed: Dionicio Encarnacion MD at 21:16 EDT ,
== END | disposition home or self-care (01) ==
LOC: US 15:29
PROVIDERS: Referring Provider Advanced Practice Midwife; Visit Provider Advanced Practice Midwife
DX: O09.90 Supervision of high risk pregnancy, unspecified, unspecified trimester (principal); Z3A.19 19 weeks gestation of pregnancy
CPT/HCPCS: 76815

== ENCOUNTER → 2024-08-03 | Outpatient (CLI) | payer OTHER, SELFPAY ==
[2024-08-03 11:02] LABS: Absolute Lymphocyte Count 2.02 X10^3/uL (0.83-4.51); Absolute Neutrophil Count 10.1 X10^3/uL (2.0-7.7); Basophil# 0.06 X10^3/uL; Basophil% 0.5 % (0-1); Eosinophil# 0.12 X10^3/uL; Eosinophils% 0.9 % (0-5); Hematocrit 36.7 % (37-47); Hemoglobin 12.2 g/dL (12.0-15.0); Lymphocyte # 2.02 X10^3/ul (0.83-4.51); Lymphocyte % 15.2 % (19-41); Mean Corp Hgb Conc 33.2 g/dL (32-36); Mean Corpuscular Hgb 31.6 pg (27.0-32.0); Mean Corpuscular Volume 95.1 fL (81-99); Mean Platelet Vol. 10.5 fl (6.2-12.0); Monocyte# 0.85 X10^3/uL; Monocyte% 6.4 % (0-10); NRBC Flagged by Analyzer 0 % (0-5); Neutrophil # 10.08 X10^3/uL (2.7-7.7); Neutrophil % 75.9 % (47-70); Platelet Count 205 K/mm3 (150-450); RBC Distribution Width CV 13.5 % (11.6-14.6); RBC Distribution Width SD 46.6 fl (35.1-43.9); Red Blood Count 3.86 M/mm3 (4.2-5.4); White Blood Count 13.3 K/mm3 (4.4-11.0)
[2024-08-03 11:33] LABS: Glucose Challenge Gest 1H 50g 118 mg/dL (70-140)
[2024-08-03 11:58] LABS: HIV - WCH Non-Reactive (Nonreactive); Syphilis Antibodies Non-reactive
== END | disposition home or self-care (01) ==
LOC: LAB 10:08
PROVIDERS: Referring Provider Nurse Practitioner Women's Health; Visit Provider Nurse Practitioner Women's Health
DX: Z34.92 Encounter for supervision of normal pregnancy, unspecified, second trimester (principal); Z3A.27 27 weeks gestation of pregnancy
CPT/HCPCS: 36415; 82950; 85025; 86703; 86780; 86850; 86900; 86901

== ENCOUNTER → 2024-09-29 | Outpatient (CLI) | payer SELFPAY, OTHER ==
[2024-09-29 10:47] LABS: ROM Internal Control Test YES-OK TO RESULT pt. (Internal QC); ROM Patient Test Negative (Negative); Record Kit Lot#, ROM+ K1972
== END | disposition home or self-care (01) ==
PROVIDERS: Nurse Practitioner Women's Health; Referring Provider Obstetrics & Gynecology; Visit Provider Obstetrics & Gynecology
DX: O26.899 Other specified pregnancy related conditions, unspecified trimester (principal); O09.92 Supervision of high risk pregnancy, unspecified, second trimester; N89.8 Other specified noninflammatory disorders of vagina; Z3A.00 Weeks of gestation of pregnancy not specified
CPT/HCPCS: 84112; 87081

== ENCOUNTER 2024-10-06 18:28 | Inpatient (IN) | payer SELFPAY, OTHER ==
[2024-10-06 16:47] VITALS: BP 113/73; PULSE 97; RESP 16; TEMP 36.8
[2024-10-06 16:48] VITALS: PULSE 101; O2SAT 98
[2024-10-06 17:05] VITALS: BMI 25.9
[2024-10-06 19:50] VITALS: O2SAT 91
[2024-10-06 19:51] VITALS: BP 114/65; PULSE 87; RESP 17; TEMP 36.5
[2024-10-06 19:53] LABS: Absolute Lymphocyte Count 2.45 X10^3/uL (0.83-4.51); Absolute Neutrophil Count 8.9 X10^3/uL (2.0-7.7); Basophil# 0.06 X10^3/uL; Basophil% 0.5 % (0-1); Eosinophil# 0.11 X10^3/uL; Eosinophils% 0.9 % (0-5); Hematocrit 35.1 % (37-47); Hemoglobin 12.1 g/dL (12.0-15.0); Lymphocyte # 2.45 X10^3/ul (0.83-4.51); Lymphocyte % 19.3 % (19-41); Mean Corp Hgb Conc 34.5 g/dL (32-36); Mean Corpuscular Hgb 31.8 pg (27.0-32.0); Mean Corpuscular Volume 92.4 fL (81-99); Mean Platelet Vol. 10.3 fl (6.2-12.0); Monocyte# 1.02 X10^3/uL; NRBC Flagged by Analyzer 0 % (0-5); Neutrophil # 8.94 X10^3/uL (2.7-7.7); Neutrophil % 70.4 % (47-70); Platelet Count 205 K/mm3 (150-450); RBC Distribution Width CV 12.5 % (11.6-14.6); RBC Distribution Width SD 42.1 fl (35.1-43.9); White Blood Count 12.7 K/mm3 (4.4-11.0)
[2024-10-06 20:37] LABS: Syphilis Antibodies Non-reactive
[2024-10-06] MEDS: miSOPROStol 25 MCG TABLET VAGINAL (20:54)
[2024-10-07] VITALS (74 sets, daily range): BP systolic 81–128; BP diastolic 49–76; PULSE 72–162; RESP 14–16; TEMP 36.2–36.8; O2SAT 87–100
[2024-10-07] MEDS: miSOPROStol 25 MCG TABLET VAGINAL ×2 (00:29→04:19)
[2024-10-07] MEDS: Mag Hydrox/Al Hydrox/Simeth 30 ML UDC PO (05:35)
[2024-10-07] MEDS: Ondansetron 4 MG/2 ML Vial IV ×2 (07:41→16:54)
[2024-10-07] MEDS: 0.9% Saline Lock 10 ML Syringe IV ×2 (07:45→19:54)
[2024-10-07] MEDS: Lactated Ringers 1,000 ML 50 ML IV (07:47)
[2024-10-07] MEDS: 0.9% Normal Saline Single 100 ML IV.SOLN. INTRA-UTER (08:03)
[2024-10-07] MEDS: Famotidine 20 MG Tablet PO (08:15)
[2024-10-07] MEDS: fentaNYL-bupivacaine (epidural) 100 ML BAG EPIDURAL (09:04)
[2024-10-07] MEDS: Lactated Ringers 1,000 ML 200 ML IV ×3 (09:06→16:58)
[2024-10-07] MEDS: Oxytocin 15 Units/NS 250ml 15 UNITS/250 ML IV.SOLN 2 UNITS IV (17:14)
[2024-10-07] MEDS: Oxytocin 15 Units/NS 250ml 15 UNITS/250 ML IV.SOLN 334 UNITS IV (18:43)
[2024-10-07] MEDS: Methylergonovine 0.2 MG/ML Ampul IM (18:47)
[2024-10-07] MEDS: Oxytocin 15 Units/NS 250ml 15 UNITS/250 ML IV.SOLN 83 UNITS IV (19:20)
[2024-10-07] MEDS: proCHLORPERazine 10 MG/2 ML Vial IV (19:54)
[2024-10-08] VITALS (10 sets, daily range): BP systolic 100–126; BP diastolic 57–76; PULSE 87–109; RESP 15–16; TEMP 36.1–36.7; O2SAT 95–98
[2024-10-08] MEDS: Rho(D) Immune Globulin 300 MCG (1500 Unit) Syringe IV (15:04)
== END 2024-10-08 21:09 | disposition home or self-care (01) | DRG 807 ==
LOC: WPOUT 18:36 → WP 18:36
PROVIDERS: Admitting Provider Obstetrics & Gynecology; Visit Provider Obstetrics & Gynecology
DX: O36.5930 Maternal care for other known or suspected poor fetal growth, third trimester, not applicable or unspecified (principal); Z37.0 Single live birth; O26.843 Uterine size-date discrepancy, third trimester; O26.893 Other specified pregnancy related conditions, third trimester; O69.81X0 Labor and delivery complicated by cord around neck, without compression, not applicable or unspecified; Z67.41 Type O blood, Rh negative; Z3A.37 37 weeks gestation of pregnancy
CPT/HCPCS: 59025; 59050; 76816; 76819; 85025; 85460; 85461; 86780; 86850; 86870; 86900; 86901; 90384; 99221; J7120; A4216; G0378; J2405; J2790; J2791

== ENCOUNTER → 2024-11-18 | Outpatient (CLI) | payer OTHER, SELFPAY ==
[2024-11-20 09:52] LABS: HPV Reflexed? NOT INDICATED
== END | disposition home or self-care (01) ==
LOC: LABSPEC 10:39
PROVIDERS: Referring Provider Nurse Practitioner Women's Health; Visit Provider Nurse Practitioner Women's Health
DX: Z12.4 Encounter for screening for malignant neoplasm of cervix (principal)
CPT/HCPCS: 88175; G0145

== ENCOUNTER → 2025-07-29 | Outpatient (CLI) | payer OTHER, SELFPAY ==
[2025-07-29 12:10] LABS: Hematocrit 40.3 % (37-47); Hemoglobin 13.7 g/dL (12.0-15.0); Immature Granulocytes Count 0.040 X10^3/uL (0.0-0.0); Mean Corp Hgb Conc 34.0 g/dL (32-36); Mean Corpuscular Volume 88.6 fL (81-99); Mean Platelet Vol. 10.6 fl (6.2-12.0); NRBC Flagged by Analyzer 0 % (0-5); Platelet Count 316 K/mm3 (150-450); RBC Distribution Width CV 13.7 % (11.6-14.6); RBC Distribution Width SD 44.5 fl (35.1-43.9); Red Blood Count 4.55 M/mm3 (4.2-5.4); White Blood Count 10.5 K/mm3 (4.4-11.0)
[2025-07-29 13:10] LABS: HIV Nonreactive (Nonreactive); Hepatitis B Surface Antigen Nonreactive (Nonreactive); Hepatitis C Antibody Nonreactive (Nonreactive); Syphilis Antibodies Nonreactive (Nonreactive)
[2025-07-30 21:07] LABS: Chlamydia By Nucleic Acid AMP Negative (Negative); Gonococcus By Nucleic Acid AMP Negative (Negative)
== END | disposition home or self-care (01) ==
LOC: BWCLAB 11:02
PROVIDERS: Referring Provider Advanced Practice Midwife; Visit Provider Advanced Practice Midwife
DX: O09.90 Supervision of high risk pregnancy, unspecified, unspecified trimester (principal); Z3A.00 Weeks of gestation of pregnancy not specified
CPT/HCPCS: 36415; 85025; 86703; 86762; 86780; 86803; 86850; 86900; 86901; 87077; 87086; 87088; 87340; 87491; 87591

== ENCOUNTER → 2025-10-22 | Outpatient (CLI) | payer SELFPAY, OTHER ==
--- NOTE | 2025-10-22 12:30 | US_ITS ---
PROCEDURE: OB ANATOMY W/ TRANSVAGINAL 10/22/2025 REASON FOR EXAM: ANATOMY SCAN TECHNIQUE: Procedure Code: [id number] Modality: US Procedure: OB ANATOMY W/ TRANSVAGINAL FINDINGS Cephalic position with cardiac activity of 145 bpm. Cervical length of 5.9 cm. Cervix is closed. Maximum vertical pocket of 3.9 cm. Placenta is anterior position with grade 0. BPD of 5.1, OFD of the 6.3, HC of 18.7, AC of 16.1, and FL of 3.3 cm corresponding with average gestational age of 20 weeks and 6 days with ALMA of 03/05/2026. Biometric measurement are within normal limits. Estimated weight of 385 g (55 percentile). anatomy is visualized and within normal limits. US/OB Anatomy w/ Transvaginal IMPRESSION: Biometry is within normal limits. anatomy is visualized and within brenda l limits. Reading Location: [id number]
--- OUTSIDE RECORDS SUMMARY | 2025-10-22 12:48 | XMS RPT_ITS | CCD ---
Author Organization [facility] Team Providers Care Electrician Ship Name Role Phone QUIÑONES, CANDY Unavailable Unavailable QUIÑONES, CANDY Unavailable Unavailable QUIÑONES, CANDY Unavailable Unavailable Dr. Dominique Corbett Attending Provider [phone] MAXIMILIAN Metcalf Attending Provider Care Physician, No Primary Primary Care Provider Unavailable Care Physician, No Primary Referring Provider Un available MAXIMILIAN Metcalf Attending Provider Care Physician, No Primary Primary Care Provider Unavailable Care Physician, No Primary Referring Provider Un available MAXIMILIAN Weinberg Attending Provider [phone] Danika Bose Attending Provider Care Physician, No Primary Primary Care Provider Unavailable Care Physician, No Primary Referring Provider Un available MAXIMILIAN Metcalf Attending Provider Dr. Danika Bose Referring Provider Dr. Danika Bose Other Provider Care Physician, No Primary Primary Care Physicia n Unavailable Care Physician, No Primary Referring Provider Un available Jazmyne Weinberg CNM Attending Physician Jazmyne Weinberg CNM Referring Provider Care Physician, No Primary Primary Care Unava ilable Care Physician, No Primary Referring Unava ilable Jzamyne Weinberg Attending Unavailable Dominique Corbett Attending Unavailabl e Care Physician, No Primary Primary Care Unava ilable Danika Bose Admitting Unavailable Danika Bose Referring Unavailable Jazmyne Weinberg Consulting Unavailable Danika Bose Consulting Unavailable Danika Bose Attending Unavailable Care Physician, No Primary Primary Care Unava ilable Jazmyne Weinberg Attending Unavailable Jazmyne Weinberg Referring Unavailable Melecio MANUAL WINDER, Edie Attending Unavailable Care Physician, No Primary Primary Care Unava ilable Ruskin MANUAL WINDER, Edie Referring Unavailable Vande Velde, Dominique Referring Unavailabl e Vande Velde, Dominique Attending Unavailabl e Care Physician, No Primary Primary Care Unava ilable Vande Velde, Dominique Attending Unavailabl e Care Physician, No Primary Primary Care Unava ilable Jazmyne Weinberg Consulting Unavailable Lidya, Danika Admitting Unavailable Lidya, Danika Referring Unavailable Jazmyne Weinberg Attending Unavailable Dominique Corbett Consulting Unavailabl e Melecio MANUAL WINDER, Edie Attending Unavailable Care Physician, No Primary Primary Care Unava ilable Care Physician, No Primary Referring Unava ilable Care Physician, No Primary Primary Care Unava ilable Care Physician, No Primary Referring Unava ilable Jazmyne Weinberg Attending Unavailable Care Physician, No Primary Primary Care Unava ilable Care Physician, No Primary Referring Unava ilable Lidya, Danika Attending Unavailable Care Physician, No Primary Referring Unava ilable Care Physician, No Primary Primary Care Unava ilable Jazmyne Weinberg Attending Unavailable Care Physician, No Primary Primary Care Unava ilable Care Physician, No Primary Referring Unava ilable Melecio MANUAL WINDER, Edie Attending Unavailable Care Physician, No Primary Primary Care Physicia n Unavailable Care Physician, No Primary Referring Provider Un available Jazmyne Weinberg CNM Attending Physician Jazmyne Weinberg CNM Referring Provider [phone] Lidya HARRISON, Dr. Garnica Attending Physician Medications Current Medications Medication Drug Class(es) Dates Sig (Normalized) Sig (Original) Mv-Mins 91-Ogse-Bythe No.1-Dha (Pnv-Alexander) 28-1-300 mg capsule (3 sources) Start: 07-16-2025 Mv-Mins 52-Eddd-Krbfg No.1-Dha (Pnv-Alexander) 28-1-300 mg capsule Active NMA PO July 15, 2025 11:00pm Complies with drug therapy Start: 07-16-2025 ondansetron 4 mg disintegrating oral tablet (3 sources) Serotonin-3 Receptor Antagonist Start: 07-29-2025 take 1 tablet by mouth every six hours as needed for nausea and vomiting Ondansetron 4 mg tablet,disintegrating Active 4 mg PO EVERY 6 HOURS as needed for nausea and vomiting 30 4 July 28, 2025 11:00pm Nausea and vomiting during Vomiting of , unspecified Complies with drug therapy Completed/Discontinued Medications Medication Drug Class(es) Dates Sig (Normalized) Sig (Original) amoxicillin 875 mg / clavulanate 125 mg oral tablet (8 sources) Penicillin-class Antibacterial Start: 11-16-2021 End: 09-25-2022 Amoxicillin-Pot Clavulanate 875-125 mg tablet Discontinued 1 {tbl} PO Q12H 14 0 November 16, 2021 12:00am September 25, 2022 10:21am Start: 11-16-2021 End: 09-25-2022 take 1 tablet by mouth every twelve hours Amoxicillin-Pot Clavulanate Discontinued 1 TABLET PO Q12H November 16, 2021 1:00am September 25, 2022 11:21am Magnesium Complex (3 sources) Start: 04-22-2023 End: 07-16-2025 Magnesium Complex Discontinu ed 2 NMA PO.IVFORM DAILY April 21, 2023 11:00pm July 16, 2025 1:57pm Start: 04-22-2023 End: 07-16-2025 Magnesium Complex Discontinu ed 2 NMA PO.IVFORM DAILY April 22, 2023 12:00am July 16, 2025 2:57pm Multivit 81-Mslk-Bzjgns 1-Dh a (Pnv-Dha) 27 mg iron-1 mg -300 mg capsule (8 sources) Start: 09-25-2022 End: 07-16-2025 Multivit 28-Kiaf-Vxjsci 1-Dh a (Pnv-Dha) 27 mg iron-1 mg -300 mg capsule Discontinued 2 NMA PO DAILY September 25, 2022 12:00am July 16, 2025 2:00pm Start: 09-25-2022 End: 07-16-2025 Multivit 32-Tmij-Diobej 1-Dh a (Pnv-Dha) 27 mg iron-1 mg -300 mg capsule Discontinued 2 NMA PO DAILY September 25, 2022 1:00am July 16, 2025 3:00pm Start: 09-25-2022 take 1 capsule by mo uth once daily Multivit 60-Bbfo-Sduyki 1-Dha (Pnv-Dha) 27 mg iron-1 mg -300 mg capsule Active 1 CAP PO DAILY September 25, 2022 1:00am Start: 09-25-2022 Multivit 47-Ir on-Folate 1-Dha (Pnv-Dha) 27 mg iron-1 mg -300 mg capsule Active CAP PO September 25, 2022 1:00am Start: 09-25-2022 Multivit 47-Ir on-Folate 1-Dha (Pnv-Dha) 27 mg iron-1 mg -300 mg capsule Active CAP PO September 25, 2022 12:00am Problems Active Problems Problem Classification Problem Date Documented Date Episodic/Chronic Diabetes mellitus without complication (8 sources) Abnormal glucose level; Translations: [Other abnormal glucose] 02-12-2023 Episodic Comment on above: 3 HR GTT-Normal Early or threatened labor (5 sources) False labor at or after 37 completed weeks of gestation; Translations: [False labor at or after 37 completed weeks of gestation] 04-15-2023 Episodic Comment on above: no change in cervica l exam. labor precautions given Other complications of (14 sources) RhD negative; Translations: [Other specified related conditions, unspecified trimester] 11-13-2022 Episodic Comment on above: rhogam @ 28 wks Alverto O+, Rhogam gi renae at 28 weeks (08/03/24), prn for bleeding and pp. Other complications of (12 sources) Other specified related conditions, unspecified trimester; Translations: [Other specified complications of , antepartum condition or complication] Onset: 09-01-2025 11-20-2022 Episodic Other complications of (12 sources) Varicose veins of lower extremity in , unspecified trimester; Translations: [Varicose veins during ] Onset: 10-15-2024 07-16-2025 Episodic Comment on above: right leg Right leg Above knee ; near vulva Other complications of (10 sources) High risk ; Translations: [Supervision of high risk , unspecified, unspecified trimester] 07-29-2025 Episodic Comment on above: PRR, , ALMA , Esther Lanier PRR, LMP 4 ALMA 10/26/24 girl name secret MARILYNN Pham Alverto Other complications of (3 sources) Uterine size for dates discrepancy; Translations: [Uterine size-date discrepancy, unspecified trimester] 11-18-2024 Episodic Comment on above: growth US Other complications of (3 sources) Complication occurring during ; Translations: [Supervision of other high risk pregnancies, first trimester] 10-14-2024 Episodic Comment on above: 05/03 Other complications of (4 sources) Finding of pattern of ; Translations: [Supervision of other high risk pregnancies, unspecified trimester] 07-29-2025 Episodic Other complications of (2 sources) Supervision of other high risk pregnancies, unspecified trimester; Translations: [Supervision of other high risk pregnancies, unspecified trimester] Onset: 10-15-2024 Episodic Other complications of (1 source) Supervision of high risk , unspecified, unspecified trimester; Translations: [Supervision of high risk , unspecified, unspecified trimester] Onset: 09-01-2025 Episodic Other complications of (1 source) Vomiting of , unspecified; Translations: [Vomiting of , unspecified] Onset: 07-29-2025 Episodic Other and delivery including normal (20 sources) Normal ; Translations: [Encounter for supervision of normal first , unspecified trimester] Onset: 10-14-2024 Episodic Comment on above: 10/06/24 Esther KW PRR , ALMA 3, boy Alverto DIANE, 39weeks. , JV declined NIPT & Garcia ier testing GBS negative. normal anatomy scan. discussed genetic & carrier testing- declines at new ob gbs neg, declines ge netic &carrier testing, nl anatomy offer MRR PP Other upper respiratory infections (11 sources) Acute sinusitis; Translations: [Acute sinusitis, unspecified] Episodic Polyhydramnios and other problems of amniotic cavity (3 sources) Spontaneous rupture of membranes 04-26-2023 Episodic Comment on above: meconium, pedi at de liveryif no cervical change in 6 hours will start cytotec for cervical ripening. Residual codes; unclassified (4 sources) Past history of small for gestational age baby; Translations: [Personal history of other complications of , childbirth and the puerperium] 07-29-2025 Episodic Comment on above: growth us at 36 week s Residual codes; unclassified (2 sources) Unspecified blood type, Rh negative; Translations: [Unspecified blood type, Rh negative] Onset: 10-15-2024 Episodic Residual codes; unclassified (1 source) Personal history of other complications of , childbirth and the puerperium; Translations: [Personal history of other complications of , childbirth and the puerperium] Onset: 09-01-2025 Episodic Residual codes; unclassified (1 source) 13 weeks gestation of ; Translations: [13 weeks gestation of ] Onset: 09-01-2025 Episodic Residual codes; unclassified (1 source) 8 weeks gestation of ; Translations: [8 weeks gestation of ] Onset: 07-29-2025 Episodic Short gestation; low weight; and growth retardation (3 sources) growth restriction; Translations: [ growth retardation, unspecified, unspecified [weight]] 11-18-2024 Episodic Unclassified (2 sources) Other underimmunization status; Translations: [Other underimmunization status] Onset: 10-15-2024 Past or Other Problems Problem Classification Problem Date Documented Da te Episodic/Chronic Genitourinary symptoms and ill-defined conditions (1 source) Dysuria; Translations: [Dysuria] Onset: 08-08-2017 Episodic Other complications of (2 sources) Uterine size-date discrepancy, unspecified trimester; Translations: [Uterine size-date discrepancy, unspecified trimester] Onset: 10-06-2024 Episodic Other complications of (2 sources) Supervision of high risk , unspecified, second trimester; Translations: [Supervision of high risk , unspecified, second trimester] Onset: 10-15-2024 Episodic Other complications of (2 sources) Other specified related conditions, third trimester; Translations: [Other specified related conditions, third trimester] Onset: 10-06-2024 Episodic Other complications of (2 sources) Supervision of other high risk pregnancies, first trimester; Translations: [Supervision of other high risk pregnancies, first trimester] Onset: 10-06-2024 Episodic Other complications of (1 source) Other specified related conditions, second trimester; Translations: [Other specified related conditions, second trimester] Onset: 09-14-2024 Episodic Other screening for suspected conditions (not mental disorders or infectious disease) (1 source) Encounter for screening for malignant neoplasm of cervix; Translations: [Encounter for screening for malignant neoplasm of cervix] Onset: 12-09-2024 Episodic Residual codes; unclassified (2 sources) 37 weeks gestation of ; Translations: [37 weeks gestation of ] Onset: 10-06-2024 Episodic Residual codes; unclassified (1 source) 34 weeks gestation of ; Translations: [34 weeks gestation of ] Onset: 09-14-2024 Episodic Results Test Name Value Interpretation Reference Range Facility Laboratory - Chemistry and C hemistry - challengeOrdered By: Danika Bose on 09-01-2025 Glucose Ql (U) Negative [facility] - UrinalysisOrder ed By: Danika Bose on 09-01-2025 Protein Ql (U) Negative [facility] Crisis Nurse Office Visit Reporton 09-01-2025 Crisis Nurse Office Visit Report [facility]'s [address], [address] [place] [address] OFFICE VISIT Date of Service: 09/01/25 MR#: [id number] Acct: [id number] Name: GGEE GARCIA Rep #: [id number] : 2000 Provider: Dr. Danika adame MD Age/Sex: 24/F [place] [facility] [place]: Signed Intake Vital Signs 11/18/24 09:48 07/29/25 10:22 09/01/25 15:21 Height 5 ft 2 in 5 ft 2 in 5 ft 2 in Weight: 129 lb 4 oz BMI 23.6 BP 119/77 Intake Visit Reasons: 13 wk 3D OB *RESCHED FROM 08/27 Rn Anesthetist Required: No Is patient in pain?: No Allergies No Known Allergies Allergy (Verified 09/01/25 15:23) Medications ???Medication ???Instructions ???Recorded ???Confirmed ???Type multivit-min no.71-iron fum 28 cap PO 07/16/25 09/01/25 History mg-folate no.1 1 mg-dha 300 mg capsule (PNV-Alexander) ondansetron 4 mg disintegrating 4 mg PO Q6H PRN nausea and 5 09/01/25 Rx tablet vomiting #30 tabs Last Menstrual Period: 05/30/25 Zika: Zika virus screening: Negative : Yes Have you fallen in the past year?: No PFSH PFSH Medical History Vaginal delivery History of prior with IUGR Rh negative status during Hx: UTI (urinary tract infection) Family History Grandfather Lung cancer, Onset Age: 70 Paternal Social History adopted: No household members: spouse and children housing: house number of children: 2 current occupational status: unemployed current occupation: housewife/SAHM pets and animals: No history of recent travel: No sexually active: Yes Smoking Status: Never smoker alcohol intake: never substance use type: does not use well-balanced diet: daily or most days caffeine: No eating out: rarely or never during the past year weight has: remained stable what type of physical activity do you participate in: walking frequency: 3-4 times per week duration: 15-30 minutes/day parveen/zoroastrianism: [employer] seatbelt use: sometimes do you feel safe at home: Yes additional social history: [place] - [employer] History 3 Elective abortions Hx Para 2 Spontaneous abortions Hx # Term Pregnancies 2 Ectopic pregnancies Hx # Pregnancies Multiple births # of living children 2 Past Pregnancies Del. Date Name GA/Weeks Outcome Route Bth Weight Infant Gen Labor Lgth Anesthesia Del Locatn Provider FOB 04/23/23 Ankit 39 live - full term 6#14oz Male epidural [facility] JV [place] 10/07/24 Esther 37 live - full term 5lbs 6oz Female epidural [facility] J V [place] Delivery Date: 10/07/24 Last Updated by: Ally Babb, RN See problem list for complications HPI 13 wk 3D OB *RESCHED FROM 08/27 Details: GEGE GARCIA is a 24 year old who presents for routine OB visit. OB Visit ALMA Calculator Estimated Delivery Date Method Current WG Current Estimate 03/06/26 LMP (Certain) 13w 3d Other Estimates 03/06/26 Ultrasound #1 13w 3d Expected Delivery Route/Plan Labor Preferences- CB/BF classes: [] labor support person: [] labor intervention preferences: [] pain management options preferred: [] cut cord/dad catch: [] : [] PP control planned: [] discussed possible routes of delivery and associated risks: [] special requests: [] Specific Issue/Plans Covid status: [] Flu vaccine: [] Tdap vaccine: [] Rhogam: [] LARC form signed: [] Problem list reviewed and updated with the most current plan of care details and appropriate orders placed. Relevant counseling for the gestational age provided. Continue routine care and follow up unless otherwise noted in visit notes/problem list details Initial Weight: 129 lb Date -???-???-???-???-???-?? ?-???-???-???-???-???-? ??- EGA Weight BP Urine Prot -???-???-???-???-???-?? ?-???-???-???-???-???-? ??- Glucose FHR FuHt Pres Dilation -???-???-???-???-???-?? ?-???-???-???-???-???-? ??- Effaced St Visit Note 07/29/25 -???-???-???-???-???-?? ?-???-???-???-???-???-? ??- 8w 4d 129 lb (+0 oz) 111/68 -???-???-???-???-???-?? ?-???-???-???-???-???-? ??- 172 -???-???-???-???-???-?? ?-???-???-???-???-???-? ??- KW- CRL 2.04 and cons with dates. declines NIPT 09/01/25 -???-???-???-???-???-?? ?-???-???-???-???-???-? ??- 13w 3d 129 lb 4 oz (+4 oz) 119/77 Negative -???-???-???-???-???-?? ?-???-???-???-???-???-? ??- Negative 150 -???-???-???-???-???-?? ?-???-???-???-???-???-? ??- SM- no vb cr amping co varicose vein ACOG First Trimester First Trimester: Desire for , Alcohol, Tobacco Cessation, Illicit/Re (more content not included)... Normal [facility] Urine Cultureon 07-31-2025 URC #1, 2 Below infectio n level. Mixed Gram Positive Organisms Hepzibah Count 1000-10,000 MIXC Mixed contaminants. Submit a new specimen if indicated. SAUR Hepzibah Count <1000 Normal [facility] Comment on above: Performed By: #### L 509.4006, L7000.1800, L3890.6102, L100.0100, L3890.6006, M100.2200, BTS, L3890.6301, L509.8002 ####[facility] [id number] [place], [address] Chlamydia/GC MARIAH aptimaon CHLAMY,NUC ACID Negative Normal Negative [facility] Comment on above: Performed By: #### L 509.4006, L7000.1800, L3890.6102, L100.0100, L3890.6006, M100.2200, BTS, L3890.6301, L509.8002 ####[facility] [id number] [place], [address] GC BY NUC ACID Negative Normal Negative [facility] Comment on above: Result Comment: Perf ormed at: =G - [facility] [place] [id number] Compensation Expert: Charlene Tenorio MD, Phone: [phone] Performed By: #### L 509.4006, L7000.1800, L3890.6102, L100.0100, L3890.6006, M100.2200, BTS, L3890.6301, L509.8002 ####[facility] [id number] [facility] [place], [place], [id number] Absolute lymphocyte countOrd ered By: Jazmyne Weinberg on 07-29-2025 Lymphocytes Auto (Unsp spec) [#/Vol] 2.08 10*3/uL 0.83-4.51 [facility] Absolute neutrophil countOrd ered By: Jazmyne Weinberg on 07-29-2025 Neutrophils (Bld) [#/Vol] 7.5 10*3/uL 2.0-7.7 [facility] Automated lymphocyte count a s percentage of total leukocytesOrdered By: Jazmyne Weinberg on 07-29-2025 Lymphocytes/100 WBC Auto (Unsp spec) 19.7 % 19-41 [facility] Basophil percentageOrdered B y: Jazmyne Weinberg on 07-29-2025 Basophils/100 WBC (Bld) 0.5 % 0-1 [facility] CBC W/Diff, Automatedon 07-12 Absolute Lymph 2.08 X10 3/uL Normal 0.83-4.51 [facility] Comment on above: Performed By: #### L 509.4006, L7000.1800, L3890.6102, L100.0100, L3890.6006, M100.2200, BTS, L3890.6301, L509.8002 #### [facility] [address] [place], [place], [id number] Absolute Neut 7.5 X10 3/uL Normal 2.0-7.7 [facility] Comment on above: Performed By: #### L 509.4006, L7000.1800, L3890.6102, L100.0100, L3890.6006, M100.2200, BTS, L3890.6301, L509.8002 #### [facility] [address] [place], [address] Basophils/100 WBC (Bld) 0.5 % Normal 0-1 [facility] Comment on above: Performed By: #### L 509.4006, L7000.1800, L3890.6102, L100.0100, L3890.6006, M100.2200, BTS, L3890.6301, L509.8002 #### [facility] [address] [place], [address] Eosinophils/100 WBC (Bld) 0.8 % Normal 0-5 [facility] Comment on above: Performed By: #### L 509.4006, L7000.1800, L3890.6102, L100.0100, L3890.6006, M100.2200, BTS, L3890.6301, L509.8002 #### [facility] [address] [place], [address] Erythrocyte distribution width (RBC) [Ratio] 13.7 % Normal 11.6-14.6 [facility] Comment on above: Performed By: #### L 509.4006, L7000.1800, L3890.6102, L100.0100, L3890.6006, M100.2200, BTS, L3890.6301, L509.8002 #### [facility] [address] [place], [address] Hematocrit (Bld) [Volume fraction] 40.3 % Normal 37-47 [facility] Comment on above: Performed By: #### L 509.4006, L7000.1800, L3890.6102, L100.0100, L3890.6006, M100.2200, BTS, L3890.6301, L509.8002 #### [facility] [address] [place], [address] Hemoglobin (Bld) [Mass/Vol] 13.7 g/dL Normal 12.0-15.0 [facility] Comment on above: Performed By: #### L 509.4006, L7000.1800, L3890.6102, L100.0100, L3890.6006, M100.2200, BTS, L3890.6301, L509.8002 #### [facility] [address] [place], [address] IG% 0.400 Normal 0.0-0.9 [facility] Comment on above: Result Comment: IG% - Immature Granulocytes (promyelocytes, myelocytes and metamyelocytes) > 1% indicates that a LEFT SHIFT is Present. Performed By: #### L 509.4006, L7000.1800, L3890.6102, L100.0100, L3890.6006, M100.2200, BTS, L3890.6301, L509.8002 #### [facility] [address] [place], [address] Lymphocytes/100 WBC (Bld) 19.7 % Normal 19-41 [facility] Comment on above: Performed By: #### L 509.4006, L7000.1800, L3890.6102, L100.0100, L3890.6006, M100.2200, BTS, L3890.6301, L509.8002 #### [facility] [address] [place], [address] MCH (RBC) [Entitic mass] 30.1 pg Normal 27.0-32.0 [facility] Comment on above: Performed By: #### L 509.4006, L7000.1800, L3890.6102, L100.0100, L3890.6006, M100.2200, BTS, L3890.6301, L509.8002 #### [facility] [address] [place], [address] MCHC (RBC) [Mass/Vol] 34.0 g/dL Normal 32-36 [facility] Comment on above: Performed By: #### L 509.4006, L7000.1800, L3890.6102, L100.0100, L3890.6006, M100.2200, BTS, L3890.6301, L509.8002 #### [facility] [address] [place], [address] MCV (RBC) [Entitic vol] 88.6 fL Normal 81-99 [facility] Comment on above: Performed By: #### L 509.4006, L7000.1800, L3890.6102, L100.0100, L3890.6006, M100.2200, BTS, L3890.6301, L509.8002 #### [facility] [address] [place], [address] Monocytes/100 WBC (Bld) 7.2 % Normal 0-10 [facility] Comment on above: Performed By: #### L 509.4006, L7000.1800, L3890.6102, L100.0100, L3890.6006, M100.2200, BTS, L3890.6301, L509.8002 #### [facility] [address] [facility] [address] [place], [address] Neutrophils/100 WBC (Bld) 71.4 % High 47-70 [facility] Comment on above: Performed By: #### L 509.4006, L7000.1800, L3890.6102, L100.0100, L3890.6006, M100.2200, BTS, L3890.6301, L509.8002 #### [facility] [address] [place], [address] Nucleated RBC (Bld) [#/Vol] 0 10*3/uL Normal 0-5 [facility] Comment on above: Performed By: #### L 509.4006, L7000.1800, L3890.6102, L100.0100, L3890.6006, M100.2200, BTS, L3890.6301, L509.8002 #### [facility] [address] [place], [address] ( Platelet mean volume (Bld) [Entitic vol] 10.6 fL Normal 6.2-12.0 [facility] Comment on above: Performed By: #### L 509.4006, L7000.1800, L3890.6102, L100.0100, L3890.6006, M100.2200, BTS, L3890.6301, L509.8002 #### [facility] [address] [facility] [place], [address] ( Platelets (Bld) [#/Vol] 316 10*3/uL Normal 150-450 [facility] Comment on above: Performed By: #### L 509.4006, L7000.1800, L3890.6102, L100.0100, L3890.6006, M100.2200, BTS, L3890.6301, L509.8002 #### [facility] [address] [facility] [place], [address] ( RBC (Bld) [#/Vol] 4.55 10*6/uL Normal 4.2-5.4 [facility] Comment on above: Performed By: #### L 509.4006, L7000.1800, L3890.6102, L100.0100, L3890.6006, M100.2200, BTS, L3890.6301, L509.8002 #### [facility] [address] [facility] [address] [place], [address] RDW SD 44.5 fl High 35.1-43.9 [facility] Comment on above: Performed By: #### L 509.4006, L7000.1800, L3890.6102, L100.0100, L3890.6006, M100.2200, BTS, L3890.6301, L509.8002 #### [facility] [address] [place], [place], [id number] WBC (Bld) [#/Vol] 10.5 10*3/uL Normal 4.4-11.0 [facility] Comment on above: Performed By: #### L 509.4006, L7000.1800, L3890.6102, L100.0100, L3890.6006, M100.2200, BTS, L3890.6301, L509.8002 #### [facility] [address] [place], [address] Chlamydia trachomatis rRNA d etection by probe and target amplification methodOrdered By: Jazmyne Weinberg on 07-29-2025 C. trachomatis rRNA MARIAH+probe Ql (Unsp spec) Negative Negative [facility] Eosinophil percentageOrdered By: Jazmyne Weinberg on 07-29-2025 Eosinophils/100 WBC (Bld) 0.8 % 0-5 [facility] Erythrocyte distribution wid th ratioOrdered By: Jazmyne Weinberg on 07-29-2025 Erythrocyte distribution width (RBC) [Ratio] 13.7 % 11.6-14.6 [facility] Erythrocyte distribution wid th standard deviationOrdered By: Jazmyne Weinberg on 07-29-2025 Erythrocyte distribution width (RBC) [Ratio] 44.5 fl High 35.1-43.9 [facility] HIVon 07-29-2025 HIV Non-Reactive Normal Nonreactive [facility] Comment on above: Result Comment: Non- Reactive Reactive Repeatedly reactive samples must be confirmed according to CDC recommended confirmatory algorithms. The subresults for either HIVAG or AHIV can be used as an aid in the selection of the confirmation algorithm for reactive samples. Send out specimens with Reactive results to [facility] for confirmation. Order the HIV antibody detection and differentiation: lc#[id number] Performed By: #### L 509.4006, L7000.1800, L3890.6102, L100.0100, L3890.6006, M100.2200, BTS, L3890.6301, L509.8002 ####[facility] [address] [place], [address] Hematocrit Auto (Bld) [Volum e fraction]Ordered By: Jazmyne Weinberg on 07-29-2025 Hematocrit (Bld) [Volume fraction] 40.3 % 37-47 [facility] Hemoglobin measurementOrdere d By: Jazmyne Weinberg on 07-29-2025 Hemoglobin (Bld) [Mass/Vol] 13.7 g/dL 12.0-15.0 [facility] Hepatitis C Antibodyon 07-29 Hepatitis C Ab Non-Reactive Normal Nonreactive [facility] Comment on above: Result Comment: Reac tive: Presumptive evidence of antibodies to HCV. Follow CDC recommendations for supplemental testing. Non-Reactive: Antibodies to HCV were not detected; does not exclude the possibility of exposure to HCV Reactive Results are presumptive evidence of antibodies to HCV. Follow CDC recommendations for supplemental testing. Order confirmation testing: HCV Quant by PCR testing - HCVPCR #[id number] Non Reactive: < 0.8 Equivocal: >/= 0.8 to < 1.0 Reactive: >/= 1.0 The CDC requires that a reactive/equivocal HCV antibody result be sent out for confirmation. HCV Quant by PCR testing. Performed By: #### L 509.4006, L7000.1800, L3890.6102, L100.0100, L3890.6006, M100.2200, BTS, L3890.6301, L509.8002 ####[facility] [address] [place], [place], [id number] Immature granulocytes/100 WB C Auto (Bld)Ordered By: Jazmyne Weinberg on 07-29-2025 Immature granulocytes/100 WBC (Bld) 0.400 % 0.0-0.9 [facility] Comment on above: IG% - Immature Granu locytes (promyelocytes, myelocytes and metamyelocytes) > 1% indicates that a LEFT SHIFT is Present. L3890.6102on 07-29-2025 HEP B Surf Ag Non-Reactive Normal Nonreactive [facility] Comment on above: Result Comment: Reac tive: Presumptive evidence of HBV. Repeatedly reactive samples must be confirmed using a neutralization test (Elecsys HBsAg Confirmatory Test) Non-Reactive: HBsAg not detected; does not exclude the possibility of exposure to HBV Performed By: #### L 509.4006, L7000.1800, L3890.6102, L100.0100, L3890.6006, M100.2200, BTS, L3890.6301, L509.8002 ####[facility] [address] [place], [place], [address] L509.4006on 07-29-2025 Rubella IgG Non-Reactive Normal Nonreactive [facility] Comment on above: Result Comment: Anti body Result: Interpretation Non-Reactive: Non-Immune Reactive: Immune The following results were obtained with the Elecsys Rubella IgG assay. Results from assays of other manufacturers cannot be used interchangeably. Performed By: #### L 509.4006, L7000.1800, L3890.6102, L100.0100, L3890.6006, M100.2200, BTS, L3890.6301, L509.8002 #### [facility] [address] [place], [place], [id number] Laboratory - Microbiology an d Antimicrobial susceptibilityOrdered By: Jazmyne Weinberg on 07-29-2025 HBV surface Ag Ql (S) Non-Reactive Nonreactive [facility] Comment on above: Reactive: Presumptiv e evidence of HBV. Repeatedly reactive samples must be confirmed using a neutralization test (Elecsys HBsAg Confirmatory Test)Non-Reactive: HBsAg not detected; does not exclude the possibility of exposure to HBV MCV (mean corpuscular volume ) determinationOrdered By: Jazmyne Weinberg on 07-29-2025 MCV (RBC) [Entitic vol] 88.6 fL 81-99 [facility] Mean corpuscular hemoglobin (MCH) determinationOrdered By: Jazmyne Weinberg on 07-29-2025 MCH (RBC) [Entitic mass] 30.1 pg 27.0-32.0 [facility] Mean corpuscular hemoglobin concentration (MCHC) determinationOrdered By: Jazmyne Weinberg on 07-29-2025 MCHC (RBC) [Mass/Vol] 34.0 g/dL 32-36 [facility] Mean platelet volume determi nationOrdered By: Jazmyne Weinberg on 07-29-2025 Platelet mean volume (Bld) [Entitic vol] 10.6 fL 6.2-12.0 [facility] Monocyte percentageOrdered B y: Jazmyne Weinberg on 07-29-2025 Monocytes/100 WBC (Bld) 7.2 % 0-10 [facility] Neisseria gonorrhoeae nuclei c acid detection by amplified probe techniqueOrdered By: Jazmyne Weinberg on 07-29-2025 N. gonorrhoeae DNA MARIAH+probe Ql (Unsp spec) Negative Negative [facility] Comment on above: Performed at: =[address] [id number] Director: Charlene Tenorio MD, Phone: [phone] Neutrophil percentageOrdered By: Jazmyne Weinberg on 07-29-2025 Neutrophils/100 WBC (Bld) 71.4 % High 47-70 [facility] No Panel InformationOrdered By: Jazmyne Weinberg on 07-29-2025 HIV (1&2) Antibody Non-Reactive Nonreactive [facility] Comment on above: Non-ReactiveReactive Repeatedly reactive samples must be confirmed according to CDC recommended confirmatory algorithms. The subresults for either HIVAG or AHIV can be used as an aid in the selection of the confirmation algorithm for reactive samples.Send out specimens with Reactive results to [facility] for confirmation.Order the HIV antibody detection and differentiation: #[id number] Nucleated red blood cell per centageOrdered By: Jazmyne Weinberg on 07-29-2025 Nucleated RBC/100 WBC (Bld) [Ratio] 0 % 0-5 [facility] Crisis Nurse Office Visit Reporton 07-29-2025 Crisis Nurse Office Visit Report [facility]'s [address], [address] [place] [address] OFFICE VISIT Date of Service: 07/29/25 MR#: [id number] Acct: [id number] Name: GEGE GARCIA Rep #: [id number] : 2000 Provider: MAXIMILIAN Higginbotham ams Age/Sex: 24/F [place] [facility] [place]: Signed Intake Vital Signs 11/18/24 09:48 07/29/25 10:19 07/29/25 10:22 Height 5 ft 2 in 5 ft 2 in 5 ft 2 in Weight: 129 lb BMI 23.6 BP 111/68 Intake Visit Reasons: *EST* NOB LMP 05/30, ALMA 03/06 Rn Anesthetist Required: No Is patient in pain?: No Allergies No Known Allergies Allergy (Verified 07/29/25 10:21) Medications ???Medication ???Instructions ???Recorded ???Confirmed ???Type multivit-min no.71-iron fum 28 cap PO 07/16/25 07/16/25 History mg-folate no.1 1 mg-dha 300 mg capsule (PNV-Alexander) ondansetron 4 mg disintegrating 4 mg PO Q6H PRN nausea and 5 07/29/25 Rx tablet vomiting #30 tabs Last Menstrual Period: 05/30/25 : Yes Have you fallen in the past year?: No PFSH PFSH Medical History Vaginal delivery History of prior with IUGR Rh negative status during Hx: UTI (urinary tract infection) Family History Grandfather Lung cancer, Onset Age: 70 Paternal Social History adopted: No household members: spouse and children housing: house number of children: 2 service: No current occupational status: unemployed current occupation: housewife/SAHM pets and animals: No history of recent travel: No sexually active: Yes Smoking Status: Never smoker alcohol intake: never substance use type: does not use well-balanced diet: daily or most days caffeine: No eating out: rarely or never during the past year weight has: remained stable what type of physical activity do you participate in: walking frequency: 3-4 times per week duration: 15-30 minutes/day pavreen/zoroastrianism: Church seatbelt use: sometimes do you feel safe at home: Yes additional social history: [employer] History 3 Elective abortions Hx Para 2 Spontaneous abortions Hx # Term Pregnancies 2 Ectopic pregnancies Hx # Pregnancies Multiple births # of living children 2 Past Pregnancies Del. Date Name GA/Weeks Outcome Route Bth Weight Gen Labor Lgth Anesthesia Del Locatn Provider FOB 04/23/23 Ankit 39 live - full term 6#14oz Male epidural [facility] J[facility] [place] 10/07/24 Esther 37 live - full term 5lbs 6oz Female epidural [facility] J V [place] Delivery Date: 10/07/24 Last Updated by: Ally Babb RN See problem list for complications HPI *EST* NOB LMP 05/30, ALMA 03/06 Details: GEGE GARCIA is a 24 year old who presents for New OB visit. OB Visit ALMA Calculator Estimated Delivery Date Method Current WG Current Estimate 03/06/26 LMP (Certain) 8w 4d Other Estimates 03/06/26 Ultrasound #1 8w 4d Comments: HIV: Urine Culture: Sequential Screen: NIPT Screen: Estimated Due Date: 03/06/26 Expected Delivery Route/Plan Labor Preferences- CB/BF classes: [] labor support person: [] labor intervention preferences: [] pain management options preferred: [] cut cord/dad catch: [] : [] PP control planned: [] discussed possible routes of delivery and associated risks: [] special requests: [] Specific Issue/Plans Covid status: [] Flu vaccine: [] Tdap vaccine: [] Rhogam: [] LARC form signed: [] Problem list reviewed and updated with the most current plan of care details and appropriate orders placed. Relevant counseling for the gestational age provided. Continue routine care and follow up unless otherwise noted in visit notes/problem list details Initial Weight: 129 lb Date -???-???-???-???-???-?? ?-???-???-???-???-???-? ??- EGA Weight BP Urine Prot -???-???-???-???-???-?? ?-???-???-???-???-???-? ??- Glucose FHR FuHt Pres Dilation -???-???-???-???-???-?? ?-???-???-???-???-???-? ??- Effaced St Visit Note 07/29/25 -???-???-???-???-???-?? ?-???-???-???-???-???-? ??- 8w 4d 129 lb (+0 oz) 111/68 -???-???-???-???-???-?? ?-???-???-???-???-???-? ??- 172 -???-???-???-???-???-?? ?-???-???-???-???-???-? ??- KW- CRL 2.04 and cons with dates. declines NIPT Menstrual History Last Menstrual Period: 05/30/25 Reported LMP: definite Normal amount/duration: No (shorter and trestle mechanic than normal) Frequency in days: 28 On hormonal BC at conception: No hCG+: 07/07/25 Antepartum Record Genetic Screening: Congenital Heart Defect: Other, Neural Tube (more content not included)... Normal [facility] Platelet countOrdered By: Manuel Weinberg on 07-29-2025 Platelets (Bld) [#/Vol] 316 10*3/uL 150-450 [facility] RBC Auto (Bld) [#/Vol]Ordere d By: Jazmyne Weinberg on 07-29-2025 RBC (Bld) [#/Vol] 4.55 10*6/uL 4.2-5.4 [facility] Syphilis Antibodieson 2024 Syphilis Abs Non-Reactive Normal Nonreactive [facility] Comment on above: Performed By: #### L 509.4006, L7000.1800, L3890.6102, L100.0100, L3890.6006, M100.2200, BTS, L3890.6301, L509.8002 #### [facility] [address] [place], [place], [address] Type AND Screenon 07-29-2025 ABO and Rh group Nom (Bld) Blood group O Rh(D) negative Normal [facility] Comment on above: Order Comment: PN Performed By: #### L 509.4006, L7000.1800, L3890.6102, L100.0100, L3890.6006, M100.2200, BTS, L3890.6301, L509.8002 ####[facility] [address] [place], [address] Urine cultureOrdered By: Omari Weinberg on 07-29-2025 Bacteria identified Cx Nom (U) Positive Abnormal [facility] Bacteria identified Cx Nom (U) Staphylococcus aureus Abnormal [facility] Bacteria identified Cx Nom (U) Positive Abnormal [facility] Bacteria identified Cx Nom (U) Staphylococcus aureus Abnormal [facility] White blood cell (WBC) count Ordered By: Jazmyne Weinberg on 07-29-2025 WBC (Bld) [#/Vol] 10.5 10*3/uL 4.4-11.0 [facility] PAP I-G w/rfx hrHPV-Aptimaon 11-19-2024 ADEQ Comment Normal . [facility] Comment on above: Order Comment: Speci men Comment: [id number] Comment: Source.............CervixSpecimen Comment: No. of containers..01 ThinPrep Vial Result Comment: Sati sfactory for evaluation. Endocervical and/or squamous metaplastic cells (endocervical component) are present. Performed By: #### L 7400.0353 ####[facility] [address] [place], [address] COMM . Normal . [facility] Comment on above: Order Comment: Speci men Comment: [id number] Comment: Source.............CervixSpecimen Comment: No. of containers..01 ThinPrep Vial Performed By: #### L 7400.0353 ####[facility] [address] [place], [address] COMMENT Comment Normal . [facility] Comment on above: Order Comment: Speci men Comment: [id number] Comment: Source.............CervixSpecimen Comment: No. of containers..01 ThinPrep Vial Result Comment: This liquid based ThinPrep(R) pap test was screened with the use of an image guided system. Performed By: #### L 7400.0353 ####[facility] [address] [place], [place], [address] DIAG Comment Normal . [facility] Comment on above: Order Comment: Speci men Comment: [id number] Comment: Source.............CervixSpecimen Comment: No. of containers..01 ThinPrep Vial Result Comment: NEGA TIVE FOR INTRAEPITHELIAL LESION OR MALIGNANCY. Performed By: #### L 7400.0353 ####[facility] [address] [place], [place], [address] HPV RFLX Comment Normal . [facility] Comment on above: Order Comment: Speci men Comment: [id number] Comment: Source.............CervixSpecimen Comment: No. of containers..01 ThinPrep Vial Result Comment: The HPV DNA reflex criteria were not met with this specimen result therefore, no HPV testing was performed. Performed at: [address] [id number] Compensation Expert: Charlene Tenorio MD, Phone: [phone] Performed By: #### L 7400.0353 ####[facility] [address] [facility] [place], [place], [address] PAPSMR Comment Normal . [facility] Comment on above: Order Comment: Speci men Comment: [id number] Comment: Source.............CervixSpecimen Comment: No. of containers..01 ThinPrep Vial Result Comment: The Pap smear is a screening test designed to aid in the detection of premalignant and malignant conditions of the uterine cervix. It is not a diagnostic procedure and should not be used as the sole means of detecting cervical cancer. Both false-positive and false-negative reports do occur. Performed By: #### L 7400.0353 ####[facility] [address] [place], [address] PERFORM Comment Normal . [facility] Comment on above: Order Comment: Speci men Comment: [id number] Comment: Source.............CervixSpecimen Comment: No. of containers..01 ThinPrep Vial Result Comment: Adrien Plunkett, Credit Control Administrator (ASCP) Performed By: #### L 7400.0353 ####[facility] [address] [place], [place], [address] Crisis Nurse Office Visit Reporton 11-18-2024 Crisis Nurse Office Visit Report [facility]'s [address], [address] [place] [address] OFFICE VISIT Date of Service: 11/18/24 MR#: [id number] Acct: [id number] Name: GEGE GARCIA Rep #: [id number] : 2000 Provider: IRMA ly Age/Sex: 23/F [place] [facility]: Signed Intake Vital Signs 10/06/24 17:05 11/18/24 09:43 11/18/24 09:48 Height 5 ft 2 in 5 ft 2 in 5 ft 2 in Weight: 129 lb 6 oz BMI 23.6 BP 110/72 Intake Visit Reasons: Post- (OB) Chief Complaint: 6 Week PP Rn Anesthetist Required: No Is patient in pain?: No Allergies No Known Allergies Allergy (Verified 11/18/24 09:43) Medications ???Medication ???Instructions ???Recorded ???Confirmed ???Type multivitamin no.47-iron fum 27 2 cap PO DAILY 09/25/22 11/18/24 History mg-folate no.1 1 mg-dha 300 mg capsule (PNV-DHA) Magnesium Complex 2 cap PO.IVFORM DAILY 04/22/23 11/18/24 History : Yes PFSH Medical History History of prior with IUGR Rh negative status during Hx: UTI (urinary tract infection) Family History Grandfather Lung cancer, Onset Age: 70 Paternal Social History adopted: No household members: spouse and children housing: house number of children: 1 current occupational status: unemployed current occupation: housewife pets and animals: No history of recent travel: No sexually active: Yes Smoking Status: Never smoker alcohol intake: never substance use type: does not use well-balanced diet: daily or most days caffeine: No eating out: rarely or never during the past year weight has: remained stable what type of physical activity do you participate in: walking frequency: 3-4 times per week duration: 15-30 minutes/day parveen/zoroastrianism: Church seatbelt use: sometimes do you feel safe at home: Yes additional social history: [employer] - [employer] Family [employer] History 2 Elective abortions Hx Para 2 Spontaneous abortions Hx # Term Pregnancies 2 Ectopic pregnancies Hx # Pregnancies Multiple births # of living children 2 Past Pregnancies Del. Date Name GA/Weeks Outcome Route Bth Weight Gen Labor Lgth Anesthesia Del Locatn Provider FOB 04/23/23 Ankit 39 live - full term 6#14oz Male epidural [facility] JV [place] 10/07/24 Esther 37 live - full term 5lbs 6oz Female epidural [facility] J V [place] Delivery Date: 10/07/24 Last Updated by: Ally Babb RN See problem list for complications Depression Screen PHQ-2/9 PHQ-2 Over the last 2 weeks, how often have you been bothered by any of the following problems? 1. Little interest or pleasure in doing things: not at all 2. Feeling down, depressed, or hopeless: not at all Total score: 0 Post HPI care and examination: Details: GEGE GARCIA is a 23 year old who presents for her post visit. Overall doing well. Baby Esther was at [facility] for almost 2 weeks but doing well now. She did have clip of tongue tie yesterday Infant Feeding: Breast Menses resumed: No [place] since delivery: No Emotional Support: Yes Last Pap:: 2021 Control Method: condom ROS Card Denies chest pain and Denies dyspnea Resp Denies dyspnea GI Denies bloating and Denies change in bowel habits Denies difficulty voiding Skin/Breast Denies breast mass, Denies breast pain and Denies breast skin changes Exam Const General: cooperative, no acute distress and well developed Nutritional Appearance: average body habitus Orientation: oriented x3 Chest Chest palpation inspection: abnormal inspection of the chest Breast inspection: normal inspection of the breasts Breast palpation: normal palpation of the breasts, normal palpation of the axillae and no axillary lymphadenopathy GI Palpation: soft, no masses and nontender General: bladder normal to palpation External Female Exam: normal external appearance and normal appearance of the urethra Urethra: normal appearance of the urethra Speculum Exam - Vagina: normal appearance of the vagina and normal vaginal discharge Speculum Exam - Cervix: normal appearance of the cervix Bimanual Exam- Vagina Uterus: normal bimanual exam, uterine size normal, bladder normal to palpation, uterine shape normal, uterine mobility normal and non-tender Bimanual Exam- Adnexa, other: normal adnexae, no masses, normal and non-tender Pelvic Support: normal Coding Level of Care Code No Charge Diagnoses care and examination Z39.2 Assessment and Plan Assessment and Plan (1) (more content not included)... Normal [facility] Discharge Instructionon 09-12 Discharge Instruction [facility] Medical Records Department [address] [place] [address] Instructions for Home/Discharge Instructions 10/08/242058 MR#: [id number] Acct: [id number] Name: GEGE GARCIA Rep #: [id number] : 2000 23 From: Jazmyne Weinberg CNM PCP: Care Physician,No Primary Status:ADM IN Discharge Instructions Diet Discharge Diet: No restrictions DC O2, CPAP, BIPAP needs Additional Home O2 Discharge instructions: No Dressing / Incision Discharge Activity: Return to Normal Activity May resume sexual activity in: 4-6 weeks Dressing / Incision Call your doctor if your incision/area has: Continuous Slow Oozing, Sudden Increased Bleeding, Increased Pain/ Swelling, Increased Redness and Foul Smelling Discharge Call your doctor if you observe: Fever of 101 or Higher, Coldness, Increased Pain, Numbness or Tingling, Change in Color, Inability to urinate, Inability to have a bowel movement, Using more than 1 pad per hour, Shortness of breath, Dizziness, Fainting spells, Swelling in the ankles, Chest pain, Increased palpitations (irregular heartbeat), Calf discomfort and Uncontrolled pain Follow Up Care Please Follow Up With: Dominique Corbett, When: Please call the office to schedule your follow up appointment in 6 weeks. If you had high blood pressure please call to schedule an appointment in 2 weeks. Test Results: Test results from this visit will be discussed in further detail at your follow-up appointment, if applicable. Discharge Plan Admission Admit Date/Time: 10/06/24 18:28 Attending Provider: Dominique Corbett Primary Care Provider: Care Physician,Emmy Primary Consulting Providers: Jazmyne Weinberg Discharge Orders/Prescriptions Prescriptions: No Action PNV-DHA 27 mg iron-1 mg -300 mg capsule 2 cap PO DAILY Magnesium Complex 2 cap PO.IVFORM DAILY Referrals / Follow Up: Care Physician,No Primary [Primary Care Provider] - Disposition Disposition (needs filled in before D/C Order can be placed): Home, Self Care 10/08/242058 Jazmyne Weinberg CNM CC: MAXIMILIAN Weinberg; No [facility] Phys[facility] Comment on above: Result Comment: TEST RESULTS LIMITS [facility] Study Negative Negative TESTING PERFORMED AT [facility]. ORIGINAL REPORT ON FILE IN LAB CONTAINS ADDITIONAL TEST SITE INFORMATION. Performed By: #### L 803.2300 #### [facility] [address] [place], [place], [id number] Rh Negative Mom Workupon ABO and Rh group Nom (Bld) Blood group O Rh(D) positive Normal [facility] Comment on above: Order Comment: Comme nts: Age > 13 WeeksShetler, Gege [id number] Performed By: #### B RHNM BRho(D) IG ####[facility] [address] [place], [place], [id number] DIRECT ANTIGLOB Negative Normal NEGATIVE [facility] Comment on above: Order Comment: Comme nts: Age > 13 WeeksShetler, Gege [id number] Performed By: #### B RHBO BRho(D) IG ####[facility] [address] [place], [place], [id number] SCREEN Positive Abnormal NEGATIVE [facility] Comment on above: Order Comment: Comme nts: Age > 13 WeeksShetlerGege [id number] Result Comment: RENZOI MONICA-BETKE TEST TO FOLLOW. Performed By: #### B RHNM BRho(D) IG ####[facility] [address] [place], [place], [address] MOM'S ABS Positive Normal [facility] Comment on above: Order Comment: Comme nts: Age > 13 WeeksShetler, Gege [id number] Performed By: #### B RHNM BRho(D) IG ####[facility] [address] [place], [place], [id number] ABO and Rh group Nom (Bld) Blood group O Rh(D) negative Normal [facility] Comment on above: Order Comment: Comme nts: Age > 13 WeeksShetlerGege [id number] Performed By: #### B RHNM, BRho(D) IG ####[facility] [address] [place], [place], [address] BRho(D) IGon 10-07-2024 Rho(D) IG Normal [facility] Comment on above: Result Comment: [id number] Rho(D) IG PRSMD TRFSD 10/08/24 1458 Performed By: #### B RHNM, BRho(D) IG ####[facility] [address] [place], [place], [address] Discharge Instructionon 09-12 Discharge Instruction [facility] Medical Records Department [address] [place] [address] Instructions for Home/Discharge Instructions 10/07/24 1905 MR#: [id number] Acct: [id number] Name: GEGE GARCIA Rep #: [id number] : 2000 23 From: Dominique Corbett DO PCP: Care Physician,No Primary Status:ADM IN Discharge Instructions Diet Discharge Diet: No restrictions DC O2, CPAP, BIPAP needs Additional Home O2 Discharge instructions: No Dressing / Incision Discharge Activity: Return to Normal Activity, May Not Drive (while taking narcotic pain medications.) and May Shower May resume sexual activity in: 4-6 weeks Dressing / Incision Call your doctor if your incision/area has: Continuous Slow Oozing, Sudden Increased Bleeding, Increased Pain/ Swelling, Increased Redness and Foul Smelling Discharge Follow Up Care Please Follow Up With: Dominique Corbett DO When: Call [phone] to make an appointment with your doctor in 6 weeks. If you had elevated blood pressure or 4th degree laceration, you will need to be seen in 2 weeks. Test Results: Test results from this visit will be discussed in further detail at your follow-up appointment, if applicable. Discharge Plan Admission Admit Date/Time: 10/06/24 18:28 Attending Provider: Danika Bose Primary Care Provider: Care Physician,No Primary Consulting Providers: Jazmyne Weinberg Discharge Orders/Prescriptions Prescriptions: No Action PNV-DHA 27 mg iron-1 mg -300 mg capsule 2 cap PO DAILY Magnesium Complex 2 cap PO.IVFORM DAILY Referrals / Follow Up: Care Physician,No Primary [Primary Care Provider] - 10/07/241904 Dominique Corbett DO CC: MAXIMILIAN Weinberg; No Primary Care Physician Signed [facility] MR/OB.VAGDELIon 10-07-2024 MR/OB.VAGDELI [facility] Medical Records Department [address] [place] [address] OB VAGINAL DELIVERY 10/07/241901 MR#: [id number] Acct: [id number] Name: GEGE GARCIA Rep #: [id number] : 2000 From: Dominique Corbett DO PCP: Care Physician,No Primary Status:ADM IN Location: [id number] Assessment Plan (1) IUGR (intrauterine growth restriction): (2) Uterine size date discrepancy: COMMENT: growth US (3) Short interval between pregnancies affecting in first trimester, antepartum: COMMENT: 05/03 (4) Rh negative status during : QUALIFIERS: Trimester: third trimester Qualified Code(s): O26.893 - Other specified related conditions, third trimester; Z67.91 - Unspecified blood type, Rh negative COMMENT: Alverto O+, Rhogam given at 28 weeks (08/03/24), prn for bleeding and pp. (5) Maternal varicella, non-immune: COMMENT: offer MRR PP (6) Varicose veins during : COMMENT: Right leg Above knee; near vulva (7) Supervision of high-risk : QUALIFIERS: Trimester: second trimester Qualified Code(s): O09.92 - Supervision of high risk , unspecified, second trimester COMMENT: PRR, LMP 01/20/24 ALMA 10/26/24 girl name secret PC Ankit Alverto (8) : QUALIFIERS: Weeks of gestation: 37 weeks Qualified Code(s): Z3A.37 - 37 weeks gestation of COMMENT: gbs neg, declines genetic carrier testing, nl anatomy Maternal Data Information ALMA Calculator Estimated Delivery Date Method Current WG Current Estimate 10/26/24 LMP (Certain) 37w 2d Gestational age: 37 weeks 2 days Vaginal Delivery Maternal Presentation Maternal Presentation: Medically Indicated Induction Type of Induction: Pitocin, Amniotomy and Cytotec Medical Reason for Induction: Other (IUGR ) Vaginal Delivery Information Procedure Performed: Spontaneous Vaginal Delivery Date of Procedure: 10/07/24 Pre-Procedure Diagnosis: 23 y/o @ 37 weeks 6 days, IUGR and bpp of 04/18 Post-Procedure Diagnosis: same as pre-procedure Type of anesthesia: Epidural Estimated Blood Loss: 300cc Time of Delivery: 18:37 Findings Description of procedure: Patient began pushing and delivered the head in the DAVION presentation. The head was delivered atraumatically and a loose nuchal cord ???1 was identified and easily reduced over the 's head. The anterior and posterior shoulders delivered without complication followed by the rest of the infant and the was placed on the maternal abdomen. Delayed cord clamping was employed for approximately 60 seconds. Cord was clamped and cut and gentle traction was applied to the cord and the placenta delivered spontaneously immediately following it was noted to be intact with three- vessel cord. The perineum and vagina were inspected and noted to have no laceration. EBL was 300cc. Patient and tolerated delivery well. Presentation: Vertex Amniotic Membrane Rupture Type: Artificial Amniotic Fluid Description: Clear Placental Delivery Description: Spontaneous Placenta Disposition: [facility] Specimen collected: No Cord Vessel Description: 3 Vessels Cord Entanglement: Around neck x 1, loose Nuchal Cord Compression: Without compression Infant A Gender: Female (1 minute): 8 (5 minute): 9 Delayed Cord Clamping: Yes Director Of [employer] trash hauler: No Post Vaginal Deli Medications given after delivery: IV Pitocin and IM Methergin Episiotomy Description: None Laceration: None Complication Complications: No Multi Select Codes Urinary/Genital Urinary/Genital CPT Codes: 57001 Vaginal Delivery [facility] 10/07/24 1905 Cosigner Signature (if applicable): CC: MAXIMILIAN Weinberg; Dr. Dominique Corbett DO; Dr. Danika Bose MD; No Primary Care Physician Signed [facility] [id number] 10-06-2024 ANTIBODY ID D [facility] Comment on above: Order Comment: Labor Performed By: #### L 100.0100, BTS, [id number] ####[facility] [address] [place], [address] Biophysical Prof W/O Non Str eson 10-06-2024 Biophysical Prof W/O Non Stres [facility] Imaging Services [address] [place] [address] Biophysical Prof W/O Non Stres MR#: [id number] Acct: [id number] Name: GEGE GARCIA Rep #: [id number] : 2000 F 23 From: Rohit Zapata MD PCP: Care Physician,No Primary Status: ADM IN Study: Biophysical Prof W/O Non Stres Date of Exam: 12/06/23 Exam# [id number] Ordering Dr: Danika Bose [id number] STUDY: OBSTETRICAL ULTRASOUND - BIOPHYSICAL PROFILE REASON FOR EXAM: Female, 23 years old IUGR LMP: PRIOR ULTRASOUND: None. TECHNIQUE: Transabdominal TECHNICAL QUALITY: Adequate. FINDINGS: There is a single intrauterine fetus. The fetus is in a cephalic presentation. There is demonstrated cardiac activity with a heart rate of 157 bpm. There is a normal amniotic fluid volume. The largest amniotic fluid pocket measures 2.5 x 5.9 cm. The amniotic fluid index (REAL) is 13.08 cm. The placenta is anterior and not low-lying There are Grade 3 placental changes. Age by LMP: 37 weeks, 1 days. ALMA by LMP: October 26, 2024. BIOPHYSICAL PROFILE: Breathing Movements (FBM): 0 Gross Body Movements (GBM): 2 Tone (FT): 2 Amniotic Fluid Volume (AFV): 2 TOTAL SCORE: 6 / 8 US/Biophysical Prof W/O Non Stres IMPRESSION: Abnormal biophysical profile of 6/8. Electronically Signed: Rohit Zapata MD at 22:05 EST , CC: Dr. Danika Bose MD; No Primary Care Physician Trauma Counsellor: Signed Normal [facility] CBC W/Diff, Automatedon 11-2 Absolute Lymph 2.45 X10 3/uL Normal 0.83-4.51 [facility] Comment on above: Performed By: #### L 100.0100, BTS, [id number] ####[facility] [address] [place], [address] Absolute Neut 8.9 X10 3/uL High 2.0-7.7 [facility] Comment on above: Performed By: #### L 100.0100, BTS, [id number] ####[facility] [address] [place], [address] Basophils/100 WBC (Bld) 0.5 % Normal 0-1 [facility] Comment on above: Performed By: #### L 100.0100, BTS, [id number] ####[facility] [address] [place], [address] Eosinophils/100 WBC (Bld) 0.9 % Normal 0-5 [facility] Comment on above: Performed By: #### L 100.0100, BTS, [id number] ####[facility] [address] [place], [address] Erythrocyte distribution width (RBC) [Ratio] 12.5 % Normal 11.6-14.6 [facility] Comment on above: Performed By: #### L 100.0100, BTS, [id number] ####[facility] [address] [place], [address] Hematocrit (Bld) [Volume fraction] 35.1 % Low 37-47 [facility] Comment on above: Performed By: #### L 100.0100, BTS, [id number] ####[facility] [address] [place], [address] Hemoglobin (Bld) [Mass/Vol] 12.1 g/dL Normal 12.0-15.0 [facility] Comment on above: Performed By: #### L 100.0100, BTS, [id number] ####[facility] [address] [place], [address] IG% 0.900 Normal 0.0-0.9 [facility] Comment on above: Result Comment: IG% - Immature Granulocytes (promyelocytes, myelocytes and metamyelocytes) > 1% indicates that a LEFT SHIFT is Present. Performed By: #### L 100.0100, BTS, [id number] ####[facility] [address] [place], [address] Lymphocytes/100 WBC (Bld) 19.3 % Normal 19-41 [facility] Comment on above: Performed By: #### L 100.0100, BTS, [id number] ####[facility] [address] [place], [address] MCH (RBC) [Entitic mass] 31.8 pg Normal 27.0-32.0 [facility] Comment on above: Performed By: #### L 100.0100, BTS, [id number] ####[facility] [address] [place], [address] MCHC (RBC) [Mass/Vol] 34.5 g/dL Normal 32-36 [facility] Comment on above: Performed By: #### L 100.0100, BTS, [id number] ####[facility] [address] [place], [address] MCV (RBC) [Entitic vol] 92.4 fL Normal 81-99 [facility] Comment on above: Performed By: #### L 100.0100, BTS, [id number] ####[facility] [address] [place], [address] Monocytes/100 WBC (Bld) 8.0 % Normal 0-10 [facility] Comment on above: Performed By: #### L 100.0100, BTS, [id number] ####[facility] [address] [place], [address] Neutrophils/100 WBC (Bld) 70.4 % High 47-70 [facility] Comment on above: Performed By: #### L 100.0100, BTS, [id number] ####[facility] [address] [place], [address] Nucleated RBC (Bld) [#/Vol] 0 10*3/uL Normal 0-5 [facility] Comment on above: Performed By: #### L 100.0100, BTS, [id number] ####[facility] [address] [place], [address] Platelet mean volume (Bld) [Entitic vol] 10.3 fL Normal 6.2-12.0 [facility] Comment on above: Performed By: #### L 100.0100, BTS, [id number] ####[facility] [address] [place], [address] Platelets (Bld) [#/Vol] 205 10*3/uL Normal 150-450 [facility] Comment on above: Performed By: #### L 100.0100, BTS, [id number] ####[facility] [address] [place], [address] RBC (Bld) [#/Vol] 3.80 10*6/uL Low 4.2-5.4 [facility] Comment on above: Performed By: #### L 100.0100, BTS, [id number] ####[facility] [address] [place], [address] RDW SD 42.1 fl Normal 35.1-43.9 [facility] Comment on above: Performed By: #### L 100.0100, BTS, ORMI1743 ####[facility] [address] [place], [address] WBC (Bld) [#/Vol] 12.7 10*3/uL High 4.4-11.0 [facility] Comment on above: Performed By: #### L 100.0100, BTS, [id number] ####[facility] [address] [place], [address] H AND P Exam - OB/GYNon 09-12 H&P Exam - FILM DEVELOPER [facility] Medical Records Department [address] [place] [address] H P Exam - FILM DEVELOPER 10/06/241947 MR#: [id number] Acct: [id number] Name: GEGE GARCIA Rep #: [id number] : 2000 23 From: Danika Bose MD PCP: Care Physician,No Primary Status:ADM IN Location: [place] [id number] HPI - General General Date of Admission: 10/06/24 HPI Narrative GEGE GARCIA, is a 23 F who presents with 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 no vb lof admits good fm no regular ctx. Maternal Data Information ALMA Calculator Estimated Delivery Date Method Current WG Current Estimate 10/26/24 LMP (Certain) 37w 2d PFSH PFSH Medical History Hx: UTI (urinary tract infection) Home Medications ???Medication ???Instructions ???Recorded ???Last Taken ???Type multivitamin no.47-iron fum 27 2 cap PO DAILY 09/25/22 10/05/24 History mg-folate no.1 1 mg-dha 300 mg capsule (PNV-DHA) Magnesium Complex 2 cap PO.IVFORM DAILY 04/22/23 1 Day Ago History 04/21/23 Allergy/AdvReac Type Severity Reaction Status Date / Time No Known Allergies Allergy Verified 10/06/24 19:26 Family History Grandfather Lung cancer, Onset Age: 70 Paternal Social History adopted: No household members: spouse and children housing: house number of children: 1 current occupational status: unemployed current occupation: housewife pets and animals: No history of recent travel: No sexually active: Yes Smoking Status: Never smoker alcohol intake: never substance use type: does not use well-balanced diet: daily or most days caffeine: No eating out: rarely or never during the past year weight has: remained stable what type of physical activity do you participate in: walking frequency: 3-4 times per week duration: 15-30 minutes/day parveen/zoroastrianism: Church seatbelt use: sometimes do you feel safe at home: Yes additional social history: [place] - [employer] History 2 Elective abortions Hx Para 1 Spontaneous abortions Hx # Term Pregnancies Ectopic pregnancies Hx # Pregnancies Multiple births # of living children 1 Past Pregnancies Del. Date Name GA/Weeks Outcome Route Bth Weight Gen Labor Lgth Anesthesia Del [facility] Provider FOB 04/23/23 Ankit 39 live - full term 6#14oz Male epidural WC JV Alverto Visit Details Expected Delivery Route/Plan Labor Preferences- CB/BF classes: no labor support person: Alverto labor intervention preferences: tub pain management options preferred: epidural ok. Wants to labor in tub cut cord/dad catch: no : yes PP control planned: discussed discussed possible routes of delivery and associated risks: [] special requests: [] Plans Covid status: [] Flu vaccine: declines Tdap vaccine: declines Rhogam: given LARC form signed: yes Problem list reviewed and updated with the most current plan of care details and appropriate orders placed. Relevant counseling for the gestational age provided. Continue routine care and follow up unless otherwise noted in visit notes/problem list details OB Flowsheet Initial Weight: Not Recorded Date -???-???-???-???-???-?? ?-???-???-???-???-???-? ??- EGA Weight BP Urine Prot -???-???-???-???-???-?? ?-???-???-???-???-???-? ??- Glucose FHR FuHt Pres Dilation -???-???-???-???-???-?? ?-???-???-???-???-???-? ??- Effaced St Visit Note 04/02/24 -???-???-???-???-???-?? ?-???-???-???-???-???-? ??- 10w 3d 124 lb 4 oz 112/75 -???-???-???-???-???-?? ?-???-???-???-???-???-? ??- 175 -???-???-???-???-???-?? ?-???-???-???-???-???-? ??- KW- CRL cons with dates. NIPT declined 04/30/24 -???-???-???-???-???-?? ?-???-???-???-???-???-? ??- 14w 3d 126 lb 99/65 Negative -???-???-???-???-???-?? ?-???-???-???-???-???-? ??- Negative -???-???-???-???-???-?? ?-???-???-???-???-???-? ??- KW-no vb/cray fishing hand mping. AFP declined. FHT and movement on handheld US today 06/02/24 -???-???-???-???-???-?? ?-???-???-???-???-???-? ??- 19w 1d 126 lb 8 oz 110/60 Negative -???-???-???-???-???-?? ?-???-???-???-???-???-? ??- Negative 150 -???-???-???-???-???-?? ?-???-???-???-???-???-? ??- SM- no vb cr amping 06/30/24 -???-???-???-???-???-?? ?-???-???-???-???-???-? ??- 23w 1d 132 lb 8 oz 115/69 -???-???-???-???-???-?? ?-???-???-???-???-???-? ??- 159 -???-???-???-???-???-?? ?-???-???-???-???-???-? ??- JV- anatomy and follow up scan was normal. only complaint today is variose vein on right upper thigh. recommend compression stocki (more content not included)... [facility] L509.8000on 10-06-2024 Syphilis Abs Non-Reactive [facility] Comment on above: Performed By: #### L 509.8000 #### [facility] [address] [place], [place], [id number] OB Limited With Biometricson 10-06-2024 OB Limited With Biometrics [facility] Imaging Services [address] [place], [place] [id number] OB Limited With Biometrics MR#: [id number] Acct: [id number] Name: GEGE GARCIA Rep #: [id number] : 2000 F 23 From: Rohit Zapata MD PCP: Care Physician,No Primary Status: REG CLI Study: OB Limited With Biometrics Date of Exam: 10/06 Exam# [id number] Ordering Dr: Jazmyne Weinberg [facility] [id number] STUDY: SECOND AND THIRD TRIMESTER OBSTETRICAL ULTRASOUND - LIMITED REASON FOR EXAM: Female, 23 years old growth and real -- S and lt;D LMP: PRIOR ULTRASOUND: None. TECHNIQUE: Transabdominal TECHNICAL QUALITY: Adequate. FINDINGS: There is a single intrauterine fetus. The fetus is in a cephalic presentation. There is demonstrated cardiac activity with a heart rate of 143 bpm. There is a normal amniotic fluid volume. The largest amniotic fluid pocket measures 6.64 cm. The amniotic fluid index (REAL) is 12.93 cm. The placenta is anterior There are Grade 3 placental changes. The cervix measures 2.7 cm in length. BIOMETRY: BPD: 8.12 cm: 32 weeks, 4 days HC: 31.42 cm: 35 weeks, 2 days AC: 31.74 cm: 35 weeks, 5 days FL: 6.17 cm: 32 weeks, 0 days Age by LMP: 37 weeks, 1 days. ALMA by LMP: October 26, 2024. age by current US: 34 weeks, 2 days. ALMA by current US: November 15, 2024. Estimated weight: 2386 grams, +/- 358 grams, 5 percentile. US/OB Limited With Biometrics IMPRESSION: Viable intrauterine gestation approximately 34-35 weeks gestational age utilizing sonographic parameters and 37 weeks using maternal dates Amniotic fluid index of 12.93 cm. Cervical os is closed however the cervical length is 2.7 cm Electronically Signed: Rohit Zapata MD at 16:20 EST Reading Location ID and State: [facility] / [place] Tel , Service support , CC: MAXIMILIAN Weinberg; No Primary Care Physician Trauma Counsellor: Signed Normal [facility] Crisis Nurse Office Visit Reporton 10-06-2024 Crisis Nurse Office Visit Report [facility]'s [address], [address] [place] [address] OFFICE VISIT Date of Service: 10/06/24 MR#: [id number] Acct: [id number] Name: GEGE GARCIA Rep #: [id number] : 2000 Provider: MAXIMILIAN Higginbotham ams Age/Sex: 23/F Location: [facility] Status: Signed Intake Vital Signs 07/27/24 09:16 09/29/24 09:33 10/06/24 08:00 10/06/24 08:10 Height 5 ft 3 in 5 ft 3 in 5 ft 3 in 5 ft 3 in Weight: 143 lb BMI 25.3 BP 111/80 Intake Visit Reasons: 37 WK OB Rn Anesthetist Required: No Is patient in pain?: No Allergies No Known Allergies Allergy (Verified 10/06/24 08:00) Medications ???Medication ???Instructions ???Recorded ???Confirmed ???Type multivitamin no.47-iron fum 27 2 cap PO DAILY 09/25/22 10/06/24 History mg-folate no.1 1 mg-dha 300 mg capsule (PNV-DHA) Magnesium Complex 2 cap PO.IVFORM DAILY 04/22/23 10/06/24 History Last Menstrual Period: 01/20/24 Zika: Zika virus screening: Negative : No PFSH PFSH Medical History Hx: UTI (urinary tract infection) Family History Grandfather Lung cancer, Onset Age: 70 Paternal Social History adopted: No household members: spouse and children housing: house number of children: 1 current occupational status: unemployed current occupation: housewife pets and animals: No history of recent travel: No sexually active: Yes Smoking Status: Never smoker alcohol intake: never substance use type: does not use well-balanced diet: daily or most days caffeine: No eating out: rarely or never during the past year weight has: remained stable what type of physical activity do you participate in: walking frequency: 3-4 times per week duration: 15-30 minutes/day parveen/zoroastrianism: Church seatbelt use: sometimes do you feel safe at home: Yes additional social history: [place] - [employer] History 2 Elective abortions Hx Para 1 Spontaneous abortions Hx # Term Pregnancies Ectopic pregnancies Hx # Pregnancies Multiple births # of living children 1 Past Pregnancies Del. Date Name GA/Weeks Outcome Route Bth Weight Gen Labor Lgth Anesthesia Del Locatn Provider FOB 04/23/23 Ankit 39 live - full term 6#14oz Male epidural [facility] JV [place] HPI 37 WK OB Details: GEGE GARCIA is a 23 year old who presents for routine OB visit. OB Visit ALMA Calculator Estimated Delivery Date Method Current WG Current Estimate 10/26/24 LMP (Certain) 37w 1d Expected Delivery Route/Plan Labor Preferences- CB/BF classes: no labor support person: Alverto labor intervention preferences: tub pain management options preferred: epidural ok. Wants to labor in tub cut cord/dad catch: no : yes PP control planned: discussed discussed possible routes of delivery and associated risks: [] special requests: [] Specific Issue/Plans Covid status: [] Flu vaccine: declines Tdap vaccine: declines Rhogam: given LARC form signed: yes Problem list reviewed and updated with the most current plan of care details and appropriate orders placed. Relevant counseling for the gestational age provided. Continue routine care and follow up unless otherwise noted in visit notes/problem list details Initial Weight: Not Recorded Date -???-???-???-???-???-?? ?-???-???-???-???-???-? ??- EGA Weight BP Urine Prot -???-???-???-???-???-?? ?-???-???-???-???-???-? ??- Glucose FHR FuHt Pres Dilation -???-???-???-???-???-?? ?-???-???-???-???-???-? ??- Effaced St Visit Note 04/02/24 -???-???-???-???-???-?? ?-???-???-???-???-???-? ??- 10w 3d 124 lb 4 oz 112/75 -???-???-???-???-???-?? ?-???-???-???-???-???-? ??- 175 -???-???-???-???-???-?? ?-???-???-???-???-???-? ??- KW- CRL cons with dates. NIPT declined 04/30/24 -???-???-???-???-???-?? ?-???-???-???-???-???-? ??- 14w 3d 126 lb 99/65 Negative -???-???-???-???-???-?? ?-???-???-???-???-???-? ??- Negative -???-???-???-???-???-?? ?-???-???-???-???-???-? ??- KW-no vb/cray fishing hand mping. AFP declined. FHT and movement on handheld US today 06/02/24 -???-???-???-???-???-?? ?-???-???-???-???-???-? ??- 19w 1d 126 lb 8 oz 110/60 Negative -???-???-???-???-???-?? ?-???-???-???-???-???-? ??- Negative 150 -???-???-???-???-???-?? ?-???-???-???-???-???-? ??- SM- no vb cr amping 06/30/24 -???-???-???-???-???-?? ?-???-???-???-???-???-? ??- 23w 1d 132 lb 8 oz 115/69 -???-???-???-???-???-?? ?-???-???-???-???-???-? ??- 159 -???-???-???-???-???-?? ?-???-???-???-???-???-? ??- JV- anatomy and follow up scan was nor (more content not included)... Normal [facility] Type AND Screenon 10-06-2024 ABO and Rh group Nom (Bld) Blood group O Rh(D) negative Normal [facility] Comment on above: Order Comment: Labor Performed By: #### L 100.0100, BTS, [id number] ####[facility] [address] [place], [place], [id number] Rule out Beta Strep (Grp. B) on 10-01-2024 MAYCOL Group B Beta Streptococcus is not isolated. Normal [facility] Comment on above: Performed By: #### M 100.3400 ####[facility] [address] [place], [place], [id number] (ROM) Rupture Of Membraneson 09-29-2024 ROM Negative Normal Negative [facility] Comment on above: Result Comment: SAmn iotic fluid not present indicates No Rupture of Membranes at time of specimen collection. Performed By: #### L 205.1000 #### [facility] [address] [place], [address] Crisis Nurse Office Visit Reporton 09-29-2024 Crisis Nurse Office Visit Report [facility]'s [facility] [address] [facility], [address] [place] [address] OFFICE VISIT Date of Service: 09/29/24 MR#: [id number] Acct: [id number] Name: GEGE GARCIA Rep #: [id number] : 2000 Provider: IRMA ly Age/Sex: 23/F [place] [facility] [place]: [place]igned Intake Vital Signs 07/27/24 09:16 09/14/24 10:01 09/29/24 09:31 09/29/24 09:33 Height 5 ft 3 in 5 ft 3 in 5 ft 3 in 5 ft 3 in Weight: 142 lb 8 oz BMI 25.2 BP 117/75 Intake Visit Reasons: 36 WK OB Rn Anesthetist Required: No Is patient in pain?: No Allergies No Known Allergies Allergy (Verified 09/29/24 09:31) Medications ???Medication ???Instructions ???Recorded ???Confirmed ???Type multivitamin no.47-iron fum 27 2 cap PO DAILY 09/25/22 09/29/24 History mg-folate no.1 1 mg-dha 300 mg capsule (PNV-DHA) Magnesium Complex 2 cap PO.IVFORM DAILY 04/22/23 09/29/24 History Last Menstrual Period: 01/20/24 Zika: Zika virus screening: Negative : No PFSH PFSH Medical History Hx: UTI (urinary tract infection) Family History Grandfather Lung cancer, Onset Age: 70 Paternal Social History adopted: No household members: spouse and children housing: house number of children: 1 current occupational status: unemployed current occupation: housewife pets and animals: No history of recent travel: No sexually active: Yes Smoking Status: Never smoker alcohol intake: never substance use type: does not use well-balanced diet: daily or most days caffeine: No eating out: rarely or never during the past year weight has: remained stable what type of physical activity do you participate in: walking frequency: 3-4 times per week duration: 15-30 minutes/day parveen/zoroastrianism: Church seatbelt use: sometimes do you feel safe at home: Yes additional social history: [place] [employer] History 2 Elective abortions Hx Para 1 Spontaneous abortions Hx # Term Pregnancies Ectopic pregnancies Hx # Pregnancies Multiple births # of living children 1 Past Pregnancies Del. Date Name GA/Weeks Outcome Route Bth Weight Gen Labor Lgth Anesthesia Del Locatn Provider FOB 04/23/23 Ankit 39 live - full term 6#14oz Male epidural [facility] [place] HPI 36 WK OB Details: GEGE GARCIA is a 23 year old who presents for routine OB visit. OB Visit ALMA Calculator Estimated Delivery Date Method Current WG Current Estimate 10/26/24 LMP (Certain) 36w 1d Expected Delivery Route/Plan Labor Preferences- CB/BF classes: no labor support person: [place] labor intervention preferences: tub pain management options preferred: epidural ok. Wants to labor in tub cut cord/dad catch: no : yes PP control planned: discussed discussed possible routes of delivery and associated risks: [] special requests: [] Specific Issue/Plans Covid status: [] Flu vaccine: declines Tdap vaccine: declines Rhogam: given LARC form signed: yes Problem list reviewed and updated with the most current plan of care details and appropriate orders placed. Relevant counseling for the gestational age provided. Continue routine care and follow up unless otherwise noted in visit notes/problem list details Initial Weight: Not Recorded Date -???-???-???-???-???-?? ?-???-???-???-???-???-? ??- EGA Weight BP Urine Prot -???-???-???-???-???-?? ?-???-???-???-???-???-? ??- Glucose FHR FuHt Pres Dilation -???-???-???-???-???-?? ?-???-???-???-???-???-? ??- Effaced St Visit Note 04/02/24 -???-???-???-???-???-?? ?-???-???-???-???-???-? ??- 10w 3d 124 lb 4 oz 112/75 -???-???-???-???-???-?? ?-???-???-???-???-???-? ??- 175 -???-???-???-???-???-?? ?-???-???-???-???-???-? ??- KW- CRL cons with dates. NIPT declined 04/30/24 -???-???-???-???-???-?? ?-???-???-???-???-???-? ??- 14w 3d 126 lb 99/65 Negative -???-???-???-???-???-?? ?-???-???-???-???-???-? ??- Negative -???-???-???-???-???-?? ?-???-???-???-???-???-? ??- KW-no vb/cray fishing hand mping. AFP declined. FHT and movement on handheld US today 06/02/24 -???-???-???-???-???-?? ?-???-???-???-???-???-? ??- 19w 1d 126 lb 8 oz 110/60 Negative -???-???-???-???-???-?? ?-???-???-???-???-???-? ??- Negative 150 -???-???-???-???-???-?? ?-???-???-???-???-???-? ??- SM- no vb cr amping 06/30/24 -???-???-???-???-???-?? ?-???-???-???-???-???-? ??- 23w 1d 132 lb 8 oz 115/69 -???-???-???-???-???-?? ?-???-???-???-???-???-? ??- 159 -???-???-???-???-???-?? ?-???-???-???-???-???-? ??- JV- anatomy and f (more content not included)... Normal [facility] Crisis Nurse Office Visit Reporton 09-14-2024 Crisis Nurse Office Visit Report [facility]'s [address], [facility] [address] [phone] OFFICE VISIT Date of Service: 09/14/24 MR#: [id number] Acct: [id number] Name: GEGE GARCIA Rep #: [id number] : 2000 Provider: MAXIMILIAN Higginbotham ams Age/Sex: 23/F Location: [facility] Status: Signed Intake Vital Signs 07/27/24 09:16 09/02/24 10:26 09/14/24 09:51 09/14/24 10:01 Height 5 ft 3 in 5 ft 3 in 5 ft 3 in 5 ft 3 in Weight: 140 lb BMI 24.7 BP 115/78 Intake Visit Reasons: 34 WK OB Rn Anesthetist Required: No Is patient in pain?: No Allergies No Known Allergies Allergy (Verified 09/14/24 09:50) Medications ???Medication ???Instructions ???Recorded ???Confirmed ???Type multivitamin no.47-iron fum 27 2 cap PO DAILY 09/25/22 09/14/24 History mg-folate no.1 1 mg-dha 300 mg capsule (PNV-DHA) Magnesium Complex 2 cap PO.IVFORM DAILY 04/22/23 09/14/24 History Last Menstrual Period: 01/20/24 Do you think of yourself as: straight/heterosexual Current gender identity: female Zika: Zika virus screening: Negative : No PFSH PFSH Medical History Hx: UTI (urinary tract infection) Family History Grandfather Lung cancer, Onset Age: 70 Paternal Social History adopted: No household members: spouse and children housing: house number of children: 1 current occupational status: unemployed current occupation: housewife pets and animals: No history of recent travel: No sexually active: Yes do you think of yourself as: straight/heterosexual current gender identity: female Smoking Status: Never smoker alcohol intake: never substance use type: does not use well-balanced diet: daily or most days caffeine: No eating out: rarely or never during the past year weight has: remained stable what type of physical activity do you participate in: walking frequency: 3-4 times per week duration: 15-30 minutes/day parveen/zoroastrianism: Church seatbelt use: sometimes do you feel safe at home: Yes additional social history: [place] - [employer] History 2 Elective abortions Hx Para 1 Spontaneous abortions Hx # Term Pregnancies Ectopic pregnancies Hx # Pregnancies Multiple births # of living children 1 Past Pregnancies Del. Date Name GA/Weeks Outcome Route Bth Weight Gen Labor Lgth Anesthesia Del Locatn Provider FOB 04/23/23 Ankit 39 live - full term 6#14oz Male epidural [facility] [place] HPI 34 WK OB Details: GEGE GARCIA is a 23 year old who presents for routine OB visit. OB Visit ALMA Calculator Estimated Delivery Date Method Current WG Current Estimate 10/26/24 LMP (Certain) 34w 0d Expected Delivery Route/Plan Labor Preferences- CB/BF classes: no labor support person: [place] labor intervention preferences: tub pain management options preferred: epidural ok. Wants to labor in tub cut cord/dad catch: no : yes PP control planned: discussed discussed possible routes of delivery and associated risks: [] special requests: [] Specific Issue/Plans Covid status: [] Flu vaccine: declines Tdap vaccine: declines Rhogam: given LARC form signed: yes Problem list reviewed and updated with the most current plan of care details and appropriate orders placed. Relevant counseling for the gestational age provided. Continue routine care and follow up unless otherwise noted in visit notes/problem list details Initial Weight: Not Recorded Date -???-???-???-???-???-?? ?-???-???-???-???-???-? ??- EGA Weight BP Urine Prot -???-???-???-???-???-?? ?-???-???-???-???-???-? ??- Glucose FHR FuHt Pres Dilation -???-???-???-???-???-?? ?-???-???-???-???-???-? ??- Effaced St Visit Note 04/02/24 -???-???-???-???-???-?? ?-???-???-???-???-???-? ??- 10w 3d 124 lb 4 oz 112/75 -???-???-???-???-???-?? ?-???-???-???-???-???-? ??- 175 -???-???-???-???-???-?? ?-???-???-???-???-???-? ??- KW- CRL cons with dates. NIPT declined 04/30/24 -???-???-???-???-???-?? ?-???-???-???-???-???-? ??- 14w 3d 126 lb 99/65 Negative -???-???-???-???-???-?? ?-???-???-???-???-???-? ??- Negative -???-???-???-???-???-?? ?-???-???-???-???-???-? ??- KW-no vb/cray fishing hand mping. AFP declined. FHT and movement on handheld US today 06/02/24 -???-???-???-???-???-?? ?-???-???-???-???-???-? ??- 19w 1d 126 lb 8 oz 110/60 Negative -???-???-???-???-???-?? ?-???-???-???-???-???-? ??- Negative 150 -???-???-???-???-???-?? ?-???-???-???-???-???-? ??- SM- no vb cr amping 06/30/24 -???-???-???-???-???-?? ?-???-???-???-???-???-? ??- 23w (more content not included)... Normal [facility] No Panel InformationOrdered By: Dr. Bose on 04-15-2023 Vaginal Amniotic Fluid Detection Negative Negative [facility] Comment on above: Amniotic fluid not p resent indicates No Rupture of FetalMembranes at time of specimen collection. Laboratory - Chemistry and C hemistry - challengeon 04-11-2023 Glucose Ql (U) Negative [facility] Laboratory - Urinalysison Protein Ql (U) Negative [facility] No Panel InformationOrdered By: Wandy Metcalf on 04-07-2023 Group B Streptococcus Culture Group B Beta Streptococcus is not isolated. [facility] Laboratory - Chemistry and C hemistry - challengeon 04-04-2023 Glucose Ql (U) Negative [facility] Laboratory - Urinalysison Protein Ql (U) Negative [facility] Laboratory - Chemistry and C hemistry - challengeon 03-21-2023 Glucose Ql (U) Negative [facility] Laboratory - Urinalysison Protein Ql (U) Negative [facility] Laboratory - Chemistry and C hemistry - challengeon 03-05-2023 Glucose Ql (U) Negative [facility] Laboratory - Urinalysison Protein Ql (U) Negative [facility] Quantitative serum or plasma 3 hour gestational glucose tolerance panelOrdered By: Jazmyne Weinberg on 02-20-2023 Glucose tolerance 3 hours gestational panel See comment [facility] Comment on above: FASTING 88 Col: 02/09 01/03 0700GLUCOSE TOLERANCE TEST FOR Reference Interval GESTATIONAL DIABETES Fasting <105 mg/dL 1 hour <190 mg/dl 2 hour <165 mg/dl 3 hour <145 mg/dl 1 HR GLU 177 Col: 02/20/23 0805 2 HR GLU 165 Col: 02/20/23 0905 3 HR GLU 124 Col: 02/20/23 1004 Absolute lymphocyte countOrd ered By: Jazmyne Weinberg on 02-11-2023 Lymphocytes Auto (Unsp spec) [#/Vol] 1.75 10*3/uL 0.83-4.51 [facility] Basophil percentageOrdered B y: Jazmyne Weinberg on 02-11-2023 Basophils/100 WBC (Bld) 0.7 % 0-1 [facility] Eosinophils/100 WBC (Bld) 1.0 % 0-5 [facility] Neutrophils (Bld) [#/Vol] 8.9 10*3/uL 2.0-7.7 [facility] Neutrophils/100 WBC (Bld) 73.1 % 47-70 [facility] WBC (Bld) [#/Vol] 12.2 10*3/uL 4.4-11.0 [facility] Blood erythrocytes count (nu mber/volume)Ordered By: Jazmyne Weinberg on 02-11-2023 RBC (Bld) [#/Vol] 3.55 10*6/uL 4.2-5.4 [facility] Blood hemoglobin measurement (mass/volume)Ordered By: Jazmyne Weinberg on 02-11-2023 Hemoglobin (Bld) [Mass/Vol] 11.4 g/dL 12.0-15.0 [facility] Blood lymphocytes/100 leukoc ytesOrdered By: Jazmyne Weinberg on 02-11-2023 Lymphocytes/100 WBC (Bld) 14.4 % 19-41 [facility] Blood monocytes/100 leukocyt esOrdered By: Jazmyne Weinberg on 02-11-2023 Monocytes/100 WBC (Bld) 6.9 % 0-10 [facility] Blood platelet mean volumeOr dered By: Jazmyne Weinberg on 02-11-2023 Platelet mean volume (Bld) [Entitic vol] 10.2 fL 6.2-12.0 [facility] Determination of erythrocyte mean corpuscular volume (MCV)Ordered By: Jazmyne Weinberg on 02-11-2023 MCV (RBC) [Entitic vol] 96.3 fL 81-99 [facility] Gestational diabetes screen 1-hour screen with 50g oral glucose loadOrdered By: Jazmyne Weinberg on 02-11-2023 Glucose 1 Hr post 50 g glucose PO [Mass/Vol] 149 mg/dL 70-140 [facility] HIV 1 and HIV-2 antibody ass ay with HIV-1 p24 antigen detectionOrdered By: Jazmyne Weinberg on 02-11-2023 HIV 1+2 Ab+HIV1 p24 Ag IA Ql Non-Reactive Nonreactive [facility] Hematocrit Auto (Bld) [Volum e fraction]Ordered By: Jazmyne Weinberg on 02-11-2023 Hematocrit (Bld) [Volume fraction] 34.2 % 37-47 [facility] Laboratory - Chemistry and C hemistry - challengeon 02-11-2023 Glucose Ql (U) Negative [facility] Laboratory - Hematology and Cell countsOrdered By: Jazmyne Weinberg on 02-11-2023 Erythrocyte distribution width (RBC) [Entitic vol] 46.3 fL 35.1-43.9 [facility] Erythrocyte distribution width (RBC) [Ratio] 13.2 % 11.6-14.6 [facility] Immature granulocytes/100 WBC (Bld) 3.900 % 0.0-0.9 [facility] Comment on above: IG% - Immature Granu locytes (promyelocytes, myelocytes and metamyelocytes) > 1% indicates that a LEFT SHIFT is Present. MCH (RBC) [Entitic mass] 32.1 pg 27.0-32.0 [facility] Nucleated RBC/100 WBC (Bld) [Ratio] 0 % 0-5 [facility] Laboratory - Urinalysison Protein Ql (U) Negative [facility] MCHC Auto (RBC) [Mass/Vol]Or dered By: Jazmyne Weinberg on 02-11-2023 MCHC (RBC) [Mass/Vol] 33.3 g/dL 32-36 [facility] Platelets bldOrdered By: Omari Weinberg on 02-11-2023 Platelets (Bld) [#/Vol] 174 10*3/uL 150-450 [facility] Serum Treponema species anti body detectionOrdered By: Jazmyne Weinberg on 02-11-2023 Treponema sp Ab Ql (S) Non-Reactive [facility] Laboratory - Chemistry and C hemistry - challengeon 01-10-2023 Glucose Ql (U) Negative [facility] Laboratory - Urinalysison Protein Ql (U) Negative [facility] Laboratory - Chemistry and C hemistry - challengeon 12-18-2022 Glucose Ql (U) Negative [facility] Laboratory - Urinalysison Protein Ql (U) Negative [facility] Laboratory - Chemistry and C hemistry - challengeon 11-20-2022 Glucose Ql (U) Negative [facility] Laboratory - Urinalysison Protein Ql (U) Negative [facility] Absolute lymphocyte countOrd ered By: Dr. Mustafa on 11-08-2022 Lymphocytes Auto (Unsp spec) [#/Vol] 1.75 10*3/uL 0.83-4.51 [facility] Basophil percentageOrdered B y: Dr. Mustafa on 11-08-2022 Basophils/100 WBC (Bld) 0.6 % 0-1 [facility] Eosinophils/100 WBC (Bld) 0.8 % 0-5 [facility] Neutrophils (Bld) [#/Vol] 7.7 10*3/uL 2.0-7.7 [facility] Neutrophils/100 WBC (Bld) 74.3 % 47-70 [facility] WBC (Bld) [#/Vol] 10.4 10*3/uL 4.4-11.0 [facility] Blood erythrocytes count (nu mber/volume)Ordered By: Dr. Mustafa on 11-08-2022 RBC (Bld) [#/Vol] 4.02 10*6/uL 4.2-5.4 [facility] Blood hemoglobin measurement (mass/volume)Ordered By: Dr. Mustafa on 11-08-2022 Hemoglobin (Bld) [Mass/Vol] 12.6 g/dL 12.0-15.0 [facility] Blood lymphocytes/100 leukoc ytesOrdered By: Dr. Mustafa on 11-08-2022 Lymphocytes/100 WBC (Bld) 16.8 % 19-41 [facility] Blood monocytes/100 leukocyt esOrdered By: Dr. Mustafa on 11-08-2022 Monocytes/100 WBC (Bld) 7.1 % 0-10 [facility] Blood platelet mean volumeOr dered By: Dr. Mustafa on 11-08-2022 Platelet mean volume (Bld) [Entitic vol] 10.0 fL 6.2-12.0 [facility] Determination of erythrocyte mean corpuscular volume (MCV)Ordered By: Dr. Mustafa on 11-08-2022 MCV (RBC) [Entitic vol] 92.0 fL 81-99 [facility] HIV 1 and HIV-2 antibody ass ay with HIV-1 p24 antigen detectionOrdered By: Dr. Mustafa on 11-08-2022 HIV 1+2 Ab+HIV1 p24 Ag IA Ql Non-Reactive Nonreactive [facility] Hematocrit Auto (Bld) [Volum e fraction]Ordered By: Dr. Mustafa on 11-08-2022 Hematocrit (Bld) [Volume fraction] 37.0 % 37-47 [facility] Laboratory - Hematology and Cell countsOrdered By: Dr. Mustafa on 11-08-2022 Erythrocyte distribution width (RBC) [Entitic vol] 45.9 fL 35.1-43.9 [facility] Erythrocyte distribution width (RBC) [Ratio] 13.6 % 11.6-14.6 [facility] Immature granulocytes/100 WBC (Bld) 0.400 % 0.0-0.9 [facility] Comment on above: IG% - Immature Granu locytes (promyelocytes, myelocytes and metamyelocytes) > 1% indicates that a LEFT SHIFT is Present. MCH (RBC) [Entitic mass] 31.3 pg 27.0-32.0 [facility] Nucleated RBC/100 WBC (Bld) [Ratio] 0 % 0-5 [facility] MCHC Auto (RBC) [Mass/Vol]Or dered By: Dr. Mustafa on 11-08-2022 MCHC (RBC) [Mass/Vol] 34.1 g/dL 32-36 [facility] No Panel InformationOrdered By: Dr. Mustafa on 11-08-2022 Hepatitis B Surface Antigen Non-Reactive Nonreactive [facility] Hepatitis C Antibody Non-Reactive Nonreactive [facility] Comment on above: Non Reactive: < 0.8 Equivocal: >/= 0.8 to < 1.0 Reactive: >/= 1.0The CDC recommends that a reactive/equivocal HCV antibody result be followed up by the HCV Nucleic Acid Amplificationtest (693315) Rubella IgG Antibody Non-Reactive Nonreactive [facility] Comment on above: Antibody Results Int erpretation of Immune Status Non Reactive Presumed Non-Immune Equivocal Equivocal Reactive Presumed Immune Platelets bldOrdered By: Dr. Mustafa on 11-08-2022 Platelets (Bld) [#/Vol] 202 10*3/uL 150-450 [facility] Serum Treponema species anti body detectionOrdered By: Dr. Mustafa on 11-08-2022 Treponema sp Ab Ql (S) Non-Reactive [facility] Laboratory - Chemistry and C hemistry - challengeon 10-30-2022 Glucose Ql (U) Negative [facility] Laboratory - Urinalysison Protein Ql (U) Negative [facility] Culture, urineOrdered By: Dr Brina Mustafa on 10-05-2022 Bacteria identified Cx Nom (U) Culture exhibits no growth. [facility] Cervical or vagninal specime n microscopic examination by cytology stain (reported asOrdered By: Dr. Mustafa on 10-02-2022 Cytology report Cyto stain Doc (Cvx/Vag) Comment . [facility] Comment on above: The Pap smear is a s creening test designed to aid in thedetection of premalignant and malignant conditions of theuterine cervix. It is not a diagnostic procedure andshould not be used as the sole means of detecting cervicalcancer. Both false-positive and false-negative reports dooccur. Chlamydia trachomatis rRNA d etection by probe and target amplification methodOrdered By: Dr. Mustafa on 10-02-2022 C. trachomatis rRNA MARIAH+probe Ql (Unsp spec) Negative Negative [facility] Laboratory - CytologyOrdered By: Dr. Mustafa on 10-02-2022 Senior Designer Cyto stain Nom (Cvx/Vag) [ID] Comment . [facility] Comment on above: Igor Rebolledo, Cyto technologist (ASCP) Laboratory - Drug toxicology Ordered By: Dr. Mustafa on 10-02-2022 Amphetamines Ql (U) Negative <1000 ng/mL [facility] Benzodiazepines Ql (U) Negative < 200 ng/mL [facility] Cannabinoids Screen Ql (U) Negative < 50 ng/mL [facility] Cocaine Ql (U) Negative < 300 ng/mL [facility] Opiates Ql (U) Negative < 300 ng/mL [facility] Laboratory - Microbiology an d Antimicrobial susceptibilityOrdered By: Dr. Mustafa on 10-02-2022 N. gonorrhoeae DNA MARIAH+probe Ql (Unsp spec) Negative Negative [facility] Comment on above: Performed at: =[address] [id number] Director: Charlene Tenorio MD, Phone: [phone] Laboratory - Miscellaneous t estsOrdered By: Dr. Mustafa on 10-02-2022 Service comment (Unsp spec) [Interp] Comment . [facility] Comment on above: This liquid based Th inPrep(R) pap test was screened withthe use of an image guided system. Service comment (Unsp spec) [Interp] . . [facility] No Panel InformationOrdered By: Dr. Mustafa on 10-02-2022 Human Papillomavirus Screen Comment . [facility] Comment on above: The HPV DNA reflex c cuong were not met with this specimenresult therefore, no HPV testing was performed.Performed at: [address] [place], [place] [id number] Director: Charlene Tenorio MD, Phone: [phone] MDMA (Ecstasy) Screen Negative < 500 ng/mL [facility] Pathology report final diagnosis Narrative Comment . [facility] Comment on above: NEGATIVE FOR INTRAEP ITHELIAL LESION OR MALIGNANCY.FUNGAL ORGANISMS MORPHOLOGICALLY CONSISTENT WITH MERARY SPECIES AREPRESENT. Urine Barbiturates Screen Negative < 200 ng/mL [facility] Urine Drug Screen Comment [facility] Comment on above: CONFIRMATORY TESTING FOR ALL POSITIVE URINE DRUG SCREENRESULTS WILL ONLY BE SENT OUT UPON PHYSICIAN ORDER. VISTA Urine Drug Screen methods provide only preliminaryanalytical test results. A more specific alternate chemicalmethod must be used in order to obtain a confirmedanalytical result. Gas chromatography/mass spectrometery(GC/MS) is the preferred confirmatory method. Clinicalconsideration and professional judgement should be appliedto any drug of abuse test result, particularly whenpreliminary positive results are used. URINE TCA TESTING MUST BE ORDERED SEPARATELY. USE TESTMNEMONIC: [facility] Urine Methadone Screen Negative < 300 ng/mL [facility] Urine phencyclidine (PCP) de tectionOrdered By: Dr. Mustafa on 10-02-2022 Phencyclidine Ql (U) Negative < 25 ng/mL [facility] CULTURE URINEon 08-08-2017 CULTURE URINE CULTURE URINE _URINE CULTURE_ M I C R O B I O L O G Y R E P O R T FINAL Antimicrobial Susceptibility and Organism Identification Report Specimen Number : [id number] Requested : 08/08/17 Specimen Source : URINE Collected : 08/08/17 19:49 [place] [facility] : OUTPATIENT Received : 08/08/17 22:23 Requesting Physician : Jasmyne Sullivan Patient/Specimen Tests and Comments Specimen Comments FINAL REPORT: URINE COLONY COUNT: [id number] CFU/CC >OR=TO 3 COLONY TYPES PROBABLE CONTAMINATION -------Tech : ___ Source : URINE ID # : [id number] FINAL Report Date : / / : Collected : 08/08/17 19:49 08/11/[id number].[id number]. 08/10/[id number]. 08/11/[email or web address].COMPL ETE Normal [facility] Comment on above: Performed By: #### [id number] ####[facility],[address] [place] [id number] Culture, urine Bacteria identified Cx Nom (U) Culture exhibits no growth. [facility] Work Phone: Vital Signs Date Time Vital Sign Value Performing Clinician Kelley crockett 09-01-2025 15:21-0400 Body height 157.48 cm No Primary Care Physician [facility] 09-01-2025 15:21-0400 Body mass index (BMI) [Ratio] 23.6 kg/m2 No Primary Care Physician [facility] 09-01-2025 15:21-0400 Body weight 58.62 kg No Primary Care Physician [facility] 09-01-2025 15:21-0400 Diastolic blood pressure 77 mm[Hg] No Primary Care Physician [facility] 09-01-2025 15:-0400 Systolic blood pressure 119 mm[Hg] No Primary Care Physician [facility] 07-29-2025 10:220400 Body height 157.48 cm No Primary Care Physician [facility] 07-29-2025 10:19-0400 Body mass index (BMI) [Ratio] 23.6 kg/m2 No Primary Care Physician [facility] 07-29-2025 10:19-0400 Body weight 58.51 kg No Primary Care Physician [facility] 07-29-2025 10:19-0400 Diastolic blood pressure 68 mm[Hg] No Primary Care Physician [facility] 07-29-2025 10:19-0400 Systolic blood pressure 111 mm[Hg] No Primary Care Physician [facility] 04-15-2023 06:24-0400 Body height 160.02 cm No Primary Care Physician [facility] 04-15-2023 06:24-0400 Body mass index (BMI) [Ratio] 25 kg/m2 No Primary Care Physician [facility] 04-15-2023 06:24-0400 Body weight 64 kg No Primary Care Physician [facility] 04-15-2023 06:23-0400 Diastolic blood pressure 81 mm[Hg] No Primary Care Physician [facility] 04-15-2023 06:23-0400 Heart rate 107 /min No Primary Care Physician [facility] 04-15-2023 06:23-0400 Systolic blood pressure 128 mm[Hg] No Primary Care Physician [facility] 04-15-2023 06:22-0400 Body temperature 97.9 [degF] No Primary Care Physician [facility] 04-15-2023 06:22-0400 SaO2% (BldA) [Mass fraction] 99 % No Primary Care Physician [facility] 04-11-2023 10:21-0400 Body mass index (BMI) [Ratio] 24 kg/m2 No Primary Care Physician [facility] 04-11-2023 10:21-0400 Body weight 65.54 kg No Primary Care Physician [facility] 04-11-2023 10:21-0400 Diastolic blood pressure 74 mm[Hg] No Primary Care Physician [facility] 04-11-2023 10:21-0400 Systolic blood pressure 111 mm[Hg] No Primary Care Physician [facility] 04-04-2023 10:25-0400 Body mass index (BMI) [Ratio] 23.3 kg/m2 No Primary Care Physician [facility] 04-04-2023 10:25-0400 Body weight 63.5 kg No Primary Care Physician [facility] 04-04-2023 10:25-0400 Diastolic blood pressure 74 mm[Hg] No Primary Care Physician [facility] 04-04-2023 10:25-0400 Heart rate 94 /min No Primary Care Physician [facility] 04-04-2023 10:25-0400 Systolic blood pressure 111 mm[Hg] No Primary Care Physician [facility] 03-21-2023 08:36-0400 Body mass index (BMI) [Ratio] 23.1 kg/m2 No Primary Care Physician [facility] 03-21-2023 08:36-0400 Body weight 63.04 kg No Primary Care Physician [facility] 03-21-2023 08:36-0400 Diastolic blood pressure 72 mm[Hg] No Primary Care Physician [facility] 03-21-2023 08:36-0400 Heart rate 102 /min No Primary Care Physician [facility] 03-21-2023 08:36-0400 Systolic blood pressure 114 mm[Hg] No Primary Care Physician [facility] 03-05-2023 08:49-0400 Body mass index (BMI) [Ratio] 22.4 kg/m2 No Primary Care Physician [facility] 03-05-2023 08:49-0400 Body weight 61.23 kg No Primary Care Physician [facility] 03-05-2023 08:49-0400 Diastolic blood pressure 68 mm[Hg] No Primary Care Physician [facility] 03-05-2023 08:49-0400 Heart rate 91 /min No Primary Care Physician [facility] 03-05-2023 08:49-0400 Systolic blood pressure 110 mm[Hg] No Primary Care Physician [facility] 02-11-2023 12:00-0400 Body height 165.1 cm No Primary Care Physician [facility] 02-11-2023 12:00-0400 Body mass index (BMI) [Ratio] 21.8 kg/m2 No Primary Care Physician [facility] 02-11-2023 12:00-0400 Body weight 59.42 kg No Primary Care Physician [facility] 02-11-2023 12:00-0400 Diastolic blood pressure 68 mm[Hg] No Primary Care Physician [facility] 02-11-2023 12:00-0400 Systolic blood pressure 103 mm[Hg] No Primary Care Physician [facility] 01-10-2023 08:47-0500 Body mass index (BMI) [Ratio] 21.1 kg/m2 No Primary Care Physician [facility] 01-10-2023 08:47-0500 Body weight 57.6 kg No Primary Care Physician [facility] 01-10-2023 08:47-0500 Diastolic blood pressure 71 mm[Hg] No Primary Care Physician [facility] 01-10-2023 08:47-0500 Heart rate 99 /min No Primary Care Physician [facility] 01-10-2023 08:47-0500 Systolic blood pressure 115 mm[Hg] No Primary Care Physician [facility] 12-18-2022 08:49-0500 Body mass index (BMI) [Ratio] 20.2 kg/m2 No Primary Care Physician [facility] 12-18-2022 08:49-0500 Body weight 55.33 kg No Primary Care Physician [facility] 12-18-2022 08:49-0500 Diastolic blood pressure 70 mm[Hg] No Primary Care Physician [facility] 12-18-2022 08:49-0500 Heart rate 108 /min No Primary Care Physician [facility] 12-18-2022 08:49-0500 Systolic blood pressure 121 mm[Hg] No Primary Care Physician [facility] 11-20-2022 09:33-0500 Body height 165.1 cm No Primary Care Physician [facility] 11-20-2022 09:32-0500 Body mass index (BMI) [Ratio] 19.6 kg/m2 No Primary Care Physician [facility] 11-20-2022 09:32-0500 Body weight 53.52 kg No Primary Care Physician [facility] 11-20-2022 09:32-0500 Diastolic blood pressure 69 mm[Hg] No Primary Care Physician [facility] 11-20-2022 09:32-0500 Heart rate 90 /min No Primary Care Physician [facility] 11-20-2022 09:32-0500 Systolic blood pressure 108 mm[Hg] No Primary Care Physician [facility] 10-30-2022 08:42-0500 Body mass index (BMI) [Ratio] 18.6 kg/m2 No Primary Care Physician [facility] 10-30-2022 08:42-0500 Body weight 50.8 kg No Primary Care Physician [facility] 10-30-2022 08:42-0500 Diastolic blood pressure 76 mm[Hg] No Primary Care Physician [facility] 10-30-2022 08:42-0500 Heart rate 118 /min No Primary Care Physician [facility] 10-30-2022 08:42-0500 Systolic blood pressure 122 mm[Hg] No Primary Care Physician [facility] 10-02-2022 14:52-0500 Body height 165.[address] Dominique Corbett Work Phone: [facility] Work Phone: 10-02-2022 14:52-0500 Body mass index (BMI) [Ratio] 18.6 kg/m2 Dr. Dominique Corbett Work Phone: [facility] 10-02-2022 14:52-0500 Body weight 50.[address] Dominique Corbett Work Phone: [facility] 10-02-2022 14:52-0500 Diastolic blood pressure 75 mm[Hg] Dr. Dominique Corbett Work Phone: [facility] 10-02-2022 14:52-0500 Systolic blood pressure 119 mm[Hg] Dr. Dominique Corbett Work Phone: [facility] Encounters Encounter Date Encounter Type Care Provider Facility Start: 09-01-2025 End: 09-01-[address] Danika Bose MD -[facility] Work Phone: Start: 09-01-2025 End: 09-01-2025 ambulatory No Primary Care Physician Facility:[facility] Start: 07-29-2025 End: 07-29-2025 Patient encounter procedure Jazmyne Weinberg CNM -[facility] Work Phone: Start: 07-29-2025 End: 07-29-2025 ambulatory No Primary Care Physician -[facility] Start: 07-29-2025 End: 07-29-2025 ambulatory No Primary Care Physician Facility:[facility] Start: 11-18-2024 End: 11-18-2024 ambulatory Edie Majano MANUAL WINDER Facility:[facility] Start: 11-18-2024 End: 11-18-2024 ambulatory Edie Majano MANUAL WINDER Facility:[facility] Start: 10-06-2024 ambulatory Dominique Corbett Fa cility:[facility] Start: 10-06-2024 End: 10-08-2024 Evaluation and management of inpatient Dominique Corbett Facility:[facility] Start: 10-06-2024 End: 10-06-2024 ambulatory No Primary Care Physician Facility:[facility] Start: 09-29-2024 End: 09-29-2024 ambulatory No Primary Care Physician Facility:[facility] Start: 09-29-2024 End: 09-29-2024 ambulatory Dominique Corbett Facility:[facility] Start: 09-14-2024 End: 09-14-2024 ambulatory No Primary Care Physician Facility:[facility] Start: 04-15-2023 Non-patient / Non-visit No Primary Care Physician [facility] Start: 04-15-2023 End: 04-15-2023 ambulatory No Primary Care Physician [facility] Work Phone: Start: 04-15-2023 End: 04-15-2023 Patient encounter procedure No Primary Care Physician [facility] Start: 04-11-2023 End: 04-11-2023 Patient encounter procedure No Primary Care Physician [facility] Start: 04-04-2023 End: 04-04-2023 Patient encounter procedure No Primary Care Physician [facility] Specimen Start: 04-04-2023 End: 04-04-2023 Patient encounter procedure No Primary Care Physician [facility] @ Start: 03-21-2023 End: 03-21-2023 Patient encounter procedure No Primary Care Physician [facility] @ Start: 03-05-2023 End: 03-05-2023 Patient encounter procedure No Primary Care Physician [facility] @ Start: 02-20-2023 End: 02-20-2023 Patient encounter procedure No Primary Care Physician [facility] Start: 02-11-2023 End: 02-11-2023 ambulatory No Primary Care Physician [facility] Work Phone: Start: 02-11-2023 End: 02-11-2023 Patient encounter procedure No Primary Care Physician [facility] Start: 01-10-2023 End: 01-10-2023 Patient encounter procedure No Primary Care Physician [facility] @ Start: 12-18-2022 End: 12-18-2022 Patient encounter procedure No Primary Care Physician [facility] @ Start: 12-04-2022 End: 12-04-2022 ambulatory No Primary Care Physician [facility] Work Phone: Start: 12-04-2022 End: 12-04-2022 Patient encounter procedure No Primary Care Physician [facility] Ultrasound Start: 11-20-2022 End: 11-20-2022 Patient encounter procedure No Primary Care Physician [facility] @ Start: 11-08-2022 End: 11-08-2022 ambulatory No Primary Care Physician [facility] Work Phone: Start: 11-08-2022 End: 11-08-2022 Patient encounter procedure No Primary Care Physician [facility] Start: 10-30-2022 End: 10-30-2022 Patient encounter procedure No Primary Care Physician [facility] Start: 10-02-2022 End: 10-02-[address] Dominique Corbett Work Phone: [facility] Work Phone: Start: 10-02-2022 End: 10-02-[address] Dominique Corbett Work Phone: [facility] Specimen Start: 10-02-2022 End: 10-02-[address] Dominique Corbett Work Phone: [facility] Start: 08-08-2017 End: 08-08-2017 Ambulatory VIVIAN QUIÑONES [facility] Procedures Date Procedure Procedure Detail Performing Clinician Start: 07-29-2025 Urine culture No Primar y Care Physician Start: 07-29-2025 Hepatitis C antibody measurement No Primary Care Physician Comment on above: Reactive: Presumptiv e evidence of antibodies to HCV. Follow CDC recommendations for supplemental testing.Non-Reactive: Antibodies to HCV were not detected; does not exclude the possibility of exposure to HCVReactive Results are presumptive evidence of antibodies to HCV. Follow CDC recommendations for supplemental testing.Order confirmation testing: HCV Quant by PCR testing - HCVPCR #[id number] Non Reactive: < 0.8 Equivocal: >/= 0.8 to < 1.0 Reactive: >/= 1.0The CDC requires that a reactive/equivocal HCV antibody result be sent out for confirmation. HCV Quant by PCR testing. Start: 07-29-2025 Rubella IgG measurement No Primary Care Physician Comment on above: Antibody Result: Int erpretationNon-Reactive: Non- ImmuneReactive: ImmuneThe following results were obtained with the [employer] Rubella IgG assay. Results from assays of other manufacturers cannot be used interchangeably. Start: 07-29-2025 Serologic test for syphilis No Primary Care Physician Start: 12-04-2022 anatomy study No Primary Care Physician Group B Streptococcu s Culture No Primary Care Physician Urine culture Dr. Dominique Mustafa Work Phone: Urine culture No Primary Car e Physician Plan of Treatment Date Care Activity Detail Author Start: 04-15-2023 Nonstress test [facility] Start: 04-15-2023 Obstetric monitoring [facility] Start: 04-15-2023 Vital signs measurements [facility] Start: 04-15-2023 [facility] Start: 04-15-2023 Patient discharge [facility] Start: 10-02-2022 Liquid based cervical cytology screening [facility] Work Phone: CBC W Auto Different ial panel - Blood [facility] Work Phone: anatomy study [facility] Work Phone: Hepatitis B surface antigen measurement [facility] Work Phone: Hepatitis C antibody measurement [facility] Work Phone: HIV 1+2 Ab+HIV1 p24 Ag [Presence] in Serum or Plasma by Immunoassay [facility] Work Phone: Path report.final Dx Spec [facility] Work Phone: Patient Education ED False Labor OB Triage: Return to Hospital or Notify Physician if you Experience: [facility] Work Phone: Patient referral [facility] Work Phone: Rubella IgG measurement [facility] Work Phone: Transvaginal obstetr ic ultrasonography [facility] Work Phone: Treponema sp Ab [Pre sence] in Serum [facility] Work Phone: Ultrasonography in f irst trimester [facility] Payers Date Payer Category Payer Unknown 2024 Unknown [id number] 2024 Self-pay [id number] 2024 Unknown [id number] Unknown [id number] Unknown [facility] 120 [id number] 0 Unknown [id number] Unknown [id number] Unknown [id number] Unknown [id number] Unknown [id number] Unknown [id number] Unknown [id number] Unknown [id number] Unknown [id number] Unknown [id number] Unknown [id number] Unknown [id number] Unknown [id number] Social History Date Type Detail Facility Start: 10-02-2022 End: 04-11-2023 Tobacco smoking status WVIS Unknown if ever smoked [facility] Start: 2000 Sex Assigned At Female [facility] Start: 07-16-2025 End: 07-16-2025 Tobacco smoking status NHIS Never smoked tobacco (finding) [facility] Sex Female [facility] Clinical Notes 10-02-2022 to 09-01-2025 Note Date & Type Note Facility 09-01-2025 Progress note [facility] 09-01-2025 Progress note Note Date/Time September 01, 2025 4:36pm [facility] [address], [address] [place] [address] OFFICE VISIT Date of Service: 09/01/25 MR#: [id number] Acct: [id number] Name: GEGE GARCIA Rep #: [id number] : 2000 Provider: Dr. Parag Bose MD Age/Sex: 24/F [place] [facility] [place]: Signed Intake Vital Signs 11/18/24 09:48 07/29/25 10:22 09/01/25 15:21 Height 5 ft 2 in 5 ft 2 in 5 ft 2 in Weight: 129 lb 4 oz BMI 23.6 BP 119/77 Intake Visit Reasons: 13 wk 3D OB *RESCHED FROM 08/27 Rn Anesthetist Required: No Is patient in pain?: No Allergies No Known Allergies Allergy (Verified 09/01/25 15:23) Medications ?Medication ?Instructions ?Recorded ?Confirmed ?Type multivit-min no.71-iron fum 28 cap PO 07/16/25 5 History mg-folate no.1 1 mg-dha 300 mg capsule (PNV-Alexander) ondansetron 4 mg disintegrating 4 mg PO Q6H PRN nausea and 07/29/25 09/01/25 Rx tablet vomiting #30 tabs Last Menstrual Period: 05/30/25 Zika: Zika virus screening: Negative : Yes Have you fallen in the past year?: No PFSH PFSH Medical History Vaginal delivery History of prior with IUGR Rh negative status during Hx: UTI (urinary tract infection) Family History Grandfather Lung cancer, Onset Age: 70 Paternal Social History adopted: No household members: spouse and children housing: house number of children: 2 current occupational status: unemployed current occupation: housewife/SAHM pets and animals: No history of recent travel: No sexually active: Yes Smoking Status: Never smoker alcohol intake: never substance use type: does not use well-balanced diet: daily or most days caffeine: No eating out: rarely or never during the past year weight has: remained stable what type of physical activity do you participate in: walking frequency: 3-4 times per week duration: 15-30 minutes/day parveen/zoroastrianism: Church seatbelt use: sometimes do you feel safe at home: Yes additional social history: [employer] Family [employer] History 3 Elective abortions Hx Para 2 Spontaneous abortions Hx # Term Pregnancies 2 Ectopic pregnancies Hx # Pregnancies Multiple births # of living children 2 Past Pregnancies Del. Date Name GA/Weeks Outcome Route Bth Weight Infant Gen Labor Lgth Anesthesia Del Locatn Provider FOB 04/23/23 Ankit 39 live - full term 6#14oz Male epid ural [facility] [place] 10/07/24 Esther 37 live - full term 5lbs 6oz Female ep idural [facility] J [place] Delivery Date: 10/07/24 Last Updated by: Ally Babb RN See problem list for complications HPI 13 wk 3D OB *RESCHED FROM 08/27 Details: GEGE GARCIA is a 24 year old who presents for routine OB visit. OB Visit [facility] Calculator Estimated Delivery Date Method Current WG Current Estimate 03/06/26 LMP (Certain) 13w 3d Other Estimates 03/06/26 Ultrasound #1 13w 3d Expected Delivery Route/Plan Labor Preferences- CB/BF classes: [] labor support person: [] labor intervention preferences: [] pain management options preferred: [] cut cord/dad catch: [] : [] PP control planned: [] discussed possible routes of delivery and associated risks: [] special requests: [] Specific Issue/Plans Covid status: [] Flu vaccine: [] Tdap vaccine: [] Rhogam: [] LARC form signed: [] Problem list reviewed and updated with the most current plan of care details and appropriate orders placed. Relevant counseling for the gestational age provided. Continue routine care and follow up unless otherwise noted in visit notes/problem list details Initial Weight: 129 lb Date -?-?-?-?-?-?-?-?-?-?-?-?- EGA Weight BP Urine Prot -?-?-?-?-?-?-?-?-?-?-?-?- Glucose FHR FuHt Pres Dilation -?-?-?-?-?-?-?-?-?-?-?-?- Effaced St Visit Note 07/29/25 -?-?-?-?-?-?-?-?-?-?-?-?- 8w 4d 129 lb (+0 oz) 111/68 -?-?-?-?-?-?-?-?-?-?-?-?- 172 -?-?-?-?-?-?-?-?-?-?-?-?- KW- CRL 2.04 and cons with dates. declines NIPT 09/01/25 -?-?-?-?-?-?-?-?-?-?-?-?- 13w 3d 129 lb 4 oz (+4 oz) 119/77 Negative -?-?-?-?-?-?-?-?-?-?-?-?- Negative 150 -?-?-?-?-?-?-?-?-?-?-?-?- SM- no vb crampi ng co varicose vein ACOG First Trimester First Trimester: Desire for , Alcohol, Tobacco Cessation, Illicit/Recreational Drug/Substance Use, Intimate Partner Violence, Barriers to care, Unstable Housing, Communication Barriers, Environmental/Work Hazards, Anticipated Course of Care, Toxoplasmosis Precations, Use of Any medications, Sexual activity, Exercise, Dental Care, Sauna/Hot tub use, Seat Belt use, Childbirth classes/Hospital facilities, , Travel, Indications for Ultrasound and Screening for Aneuploidy Second Trimester Second Trimester: Signs and Symptoms of Labor and Reproductive Life Planning & Contreception; Discussed Tobacco Cessation, Discussed Depression/Anxiety and Discussed Intimate Partner Violence Third Trimester Third Trimester: Pain Management Plans, Labor support person(s), Immediate Larc, Movement Monitoring, Signs and Symptoms of Preeclampsia, Infant Feeding Yes and Family Medical Leave or Disability Forms Results POC Urinalysis 2 Dip (Clinic) Office Urine Glucose Negative Last Edit by Dee Casper on 09/01/25 15:28 Office Urine Protein Negative Last Edit by Dee Casper on 09/01/25 15:28 Coding Level of Care Code OB Routine Diagnoses Short interval between pregnancies complicating , antepartum O09.899 History of prior with SGA Z87.59 Varicose veins during O22.00 Susceptible to Varicella (non-immune), currently in first trimester Z34.90; Z28.39 Supervision of high-risk O09.90 Rh negative status during O26.899; Z67.91 13 weeks gestation of Z3A.13 Weeks of gestation: 13 weeks Assessment and Plan Assessment and Plan (1) Short interval between pregnancies complicating , antepartum: Status: Acute (2) History of prior with SGA : Status: Acute Comment: growth us at 36 weeks (3) Varicose veins during : Status: Acute Comment: right leg (4) Susceptible to Varicella (non-immune), currently in first trimester: Status: Acute (5) Supervision of high-risk : Status: Acute Comment: PRR, , [facility]MA 03/06/26, PC Esther Pham (6) Rh negative status during : Status: Acute Comment: rhogam @ 28 wks (7) : Status: Acute Qualifiers: Weeks of gestation: 13 weeks Qualified Code(s): Z3A.13 - 13 weeks gestation of Comment: declined NIPT & Carrier testing Orders: Orders OB Anatomy w/ Transvaginal 10/18/25 O09.90 - Supervision of high risk , unspecified, unspecified trimester POC Urinalysis 2 Dip (Clinic) Today Clinical Quality Measures Falls Risk Screening/Assistive Devices Have you fallen in the past year?: No 09/01/25 1536 <Electronically signed by Danika gaming MD> Date _ Danika Bose MD Cosigner Signature: Date (if applicable) CC: ~ [facility] Work Phone: 1(165) 888-328509-18-2025 Evaluation note* Diagnosis Onset Date Resolution Status Admit Date acute July 10:02am Rh negative status during acute July 29, 2025 10:02am Supervision of high-risk acute July 29, 2025 10:02am Susceptible to Varicella (non-immune), currently in first trimester acute Jul 10:02am Varicose veins during acute July 29, 2025 10:02am [facility] Work Phone: 1(374) 527-511709-18-2025 Evaluation note* Diagnosis Onset Date Resolution Status Admit Date acute July 10:02am Rh negative status during acute July 29, 2025 10:02am Supervision of high-risk acute July 29, 2025 10:02am Susceptible to Varicella (non-immune), currently in first trimester acute Jul 10:02am Varicose veins during acute July 29, 2025 10:02am History of prior with SGA acute September 01, 2 025 3:19pm acute September 01, 2025 3:19pm Rh negative status during acute September 01 3:19pm Short interval between pregnancies complicating , antepartum acute September 012024 3:19pm Supervision of high-risk acute September 01 3:19pm Susceptible to Varicella (non-immune), currently in first trimester acute 2024 3:19pm Varicose veins during acute September 01 3:19pm [facility] Work Phone: 1(524) 324-904309-18-2025 [facility] [address] [place] [address], [address] [place] [address] OFFICE VISIT Date of Service: 07/29/25 MR#: [id number] Acct: [id number] Name: GEGE GARCIA Rep #: [id number] : 2000 Provider: MAXIMILIAN Weinberg Age/Sex: 24/F [place] [facility] [place]: Signed Intake Vital Signs 11/18/24 09:48 07/29/25 10:19 07/29/25 10:22 Height 5 ft 2 in 5 ft 2 in 5 ft 2 in Weight: 129 lb BMI 23.6 BP 111/68 Intake Visit Reasons: *EST* NOB LMP 05/30, ALMA 03/06 Rn Anesthetist Required: No Is patient in pain?: No Allergies No Known Allergies Allergy (Verified 07/29/25 10:21) Medications ?Medication ?Instructions ?Recorded ?Confirmed ?Type multivit-min no.71-iron fum 28 cap PO 07/16/25 5 History mg-folate no.1 1 mg-dha 300 mg capsule (PNV-Alexander) ondansetron 4 mg disintegrating 4 mg PO Q6H PRN nausea and 07/29/25 07/29/25 Rx tablet vomiting #30 tabs Last Menstrual Period: 05/30/25 : Yes Have you fallen in the past year?: No PFSH PFSH Medical History Vaginal delivery History of prior with IUGR Rh negative status during Hx: UTI (urinary tract infection) Family History Grandfather Lung cancer, Onset Age: 70 Paternal Social History adopted: No household members: spouse and children housing: house number of children: 2 service: No current occupational status: unemployed current occupation: housewife/SAHM pets and animals: No history of recent travel: No sexually active: Yes Smoking Status: Never smoker alcohol intake: never substance use type: does not use well-balanced diet: daily or most days caffeine: No eating out: rarely or never during the past year weight has: remained stable what type of physical activity do you participate in: walking frequency: 3-4 times per week duration: 15-30 minutes/day parveen/zoroastrianism: Church seatbelt use: sometimes do you feel safe at home: Yes additional social history: [place] - [employer] Family Business History 3 Elective abortions Hx Para 2 Spontaneous abortions Hx # Term Pregnancies 2 Ectopic pregnancies Hx # Pregnancies Multiple births # of living children 2 Past Pregnancies Del. Date Name GA/Weeks Outcome Route Bth Weight Gen Labor Lgth Anesthesia Del Locatn Provider FOB 04/23/23 Ankit 39 live - full term 6#14oz Male epid ural [facility] [place] 10/07/24 Esther 37 live - full term 5lbs 6oz Female ep idural [facility] J[facility] [place] Delivery Date: 10/07/24 Last Updated by: Ally Babb RN See problem list for complications HPI *EST* NOB LMP 05/30, ALMA 03/06 Details: GEGE GARCIA is a 24 year old who presents for New OB visit. OB Visit [facility] Calculator Estimated Delivery Date Method Current WG Current Estimate 03/06/26 LMP (Certain) 8w 4d Other Estimates 03/06/26 Ultrasound #1 8w 4d Comments: HIV: Urine Culture: Sequential Screen: NIPT Screen: Estimated Due Date: 03/06/26 Expected Delivery Route/Plan Labor Preferences- CB/BF classes: [] labor support person: [] labor intervention preferences: [] pain management options preferred: [] cut cord/dad catch: [] : [] PP control planned: [] discussed possible routes of delivery and associated risks: [] special requests: [] Specific Issue/Plans Covid status: [] Flu vaccine: [] Tdap vaccine: [] Rhogam: [] LARC form signed: [] Problem list reviewed and updated with the most current plan of care details and appropriate ordersplaced. Relevant counseling for the gestational age provided. Continue routine care and follow up unless otherwise noted in visit notes/problem list details Initial Weight: 129 lb Date -?-?-?-?-?-?-?-?-?-?-?-?- EGA Weight BP Urine Prot -?-?-?-?-?-?-?-?-?-?-?-?- Glucose FHR FuHt Pres Dilation -?-?-?-?-?-?-?-?-?-?-?-?- Effaced St Visit Note 07/29/25 -?-?-?-?-?-?-?-?-?-?-?-?- 8w 4d 129 lb (+0 oz) 111/68 -?-?-?-?-?-?-?-?-?-?-?-?- 172 -?-?-?-?-?-?-?-?-?-?-?-?- KW- CRL 2.04 and cons with dates. declines NIPT Menstrual History Last Menstrual Period: 05/30/25 Reported LMP: definite Normal amount/duration: No (shorter and trestle mechanic than normal) Frequency in days: 28 On hormonal BC at conception: No hCG+: 07/07/25 Antepartum Record Genetic Screening: Congenital Heart Defect: Other, Neural Tube Defect: Other, Hemoglobinopathy Or Carrier: Other, Cystic Fibrosis: Other, Chromosome Abnormality: Other, Yadiel-Sachs: Other, Hemophilia: Other, Intellectual Disability/Autism: Other, Recurrent Loss/Stillbirth: Other, Other Structural Defect: Other, Other Genetic Disease: Partner ( a nephew and neice with meckel syndrome) and Maternal Metabolic Disorder: Other Infection History: Live with someone with TB or Exposed to TB: No, Patient or Partner has history of Genital Herpes: No, Rash or Viral illness since last mentrual period: No, Prior GBS-Infected child: No, History of STD: No, HIV Infection: No, History of Hepatitis: No, Recent travel outside of [place]: No, Concern for hepatitis exposure: No, Varicella immune: No (non-immune) and Covid Vaccinated: No Medical History Medical History: Positive: Varicosities/phlebitis (right leg full length of leg) and Negative: Diabetes, Hypertension, Heart disease, Auto-immune disorder, Kidney disease/UTI, Neurologic/epilepsy, Psychiatric, Depression/ depression, Hepatitis/liver disease, Thyroid dysfunction, Trauma/domestic violence, History of blood transfusions, D (Rh) Sensitized, Pulmonary (e.g.,TB,Asthma), Seasonal allergies, Drug/latex allergies/reactions, Breast, [employer] surgery, Operations/hospitalizations, Anesthetic complications, History of abnormal pap, Uterine anomaly/morenita, Infertility, Anti-retroviral treatment, Relevant family history and Other ACOG First Trimester First Trimester: Desire for , Alcohol, Tobacco Cessation, Illicit/Recreational Drug/Substance Use, Intimate Partner Violence, Barriers to care, Unstable Housing, Communication Barriers, Environmental/Work Hazards, Anticipated Course of Care, Nurtrition and weight gain, Toxoplasmosis Precations, Use of Any medications, Sexual activity, Exercise, Dental Care, Sauna/Hot tub use, Seat Belt use, Childbirth classes/Hospital facilities, , Travel, Indications for Ultrasound and Screening for Aneuploidy Second Trimester Second Trimester: Signs and Symptoms of Labor and Reproductive Life Planning & Contreception; Discussed Tobacco Cessation, Discussed Depression/Anxiety and Discussed Intimate Partner Violence Third Trimester Third Trimester: Pain Management Plans, Labor support person(s), Immediate Larc, Movement Monitoring, Signs and Symptoms of Preeclampsia, Infant Feeding Yes and Family Medical Leave or Disability Forms ROS Const Reports system reviewed and no additional complaints, except as documented, Denies fatigue, Denies headache(s) and Denies lethargy ENT Denies headache(s) Card Reports system reviewed and no additional complaints, except as documented Resp Reports system reviewed and no additional complaints, except as documented GI Reports system reviewed and no additional complaints, except as documented, Denies abdominal pain, Denies constipation, Denies cramping, Denies diarrhea and Denies dyspepsia Reports system reviewed and no additional complaints, except as documented, Denies abnormal vaginalbleeding, Denies difficulty voiding, Denies dyspareunia and Denies dysuria Musc Reports system reviewed and no additional complaints, except as documented Skin/Breast Reports system reviewed and no additional complaints, except as documented Neuro Yes system reviewed and no additional complaints, except as documented and No headache(s) Psych Reports system reviewed and no additional complaints, except as documented, Denies anhedonia and Denies anxiety Endo Reports system reviewed and no additional complaints, except as documented and Denies fatigue Exam Const General: cooperative, healthy appearing and comfortable Neck Neck: normal visual inspection and full ROM Chest Chest palpation & inspection: normal inspection of the chest Breast inspection: normal inspection of the breasts and normal inspection of the axillae Breast palpation: normal palpation of the breasts and normal palpation of the axillae Resp Effort & Inspection: normal respiratory effort and able to speak in complete sentences GI Inspection: normal to inspection Palpation: soft External Female Exam: normal external appearance and normal appearance of the urethra Urethra: normal appearance of the urethra Skin General: no rashes or lesions noted Neuro General: patient alert, patient awake and patient oriented x3 Extrem General: normal to inspection and full ROM Psych Appearance: grossly normal and well kempt Mental Status: mental status grossly normal Mood: congruent mood Affect: normal affect Speech and Movement: speech and movement normal Thought Process: normal Thought Content: normal Coding Level of Care Code OB Routine Diagnoses 8 weeks gestation of Z3A.08 Weeks of gestation: 8 weeks Varicose veins during O22.00 Susceptible to Varicella (non-immune), currently in first trimester Z34.90; Z28.39 Supervision of high-risk O09.90 Rh negative status during O26.899; Z67.91 Assessment and Plan Assessment and Plan (1) : Status: Acute Qualifiers: Weeks of gestation: 8 weeks Qualified Code(s): Z3A.08 - 8 weeks gestation of Comment: declined NIPT & Carrier testing (2) Varicose veins during : Status: Acute Comment: right leg (3) Susceptible to Varicella (non-immune), currently in first trimester: Status: Acute (4) Supervision of high-risk : Status: Acute Comment: , ALMA 03/06/26, Esther Lanier (5) Rh negative status during : Status: Acute Comment: rhogam @ 28 wks Orders: Orders CBC W/Diff, Automated 07/16/25 O09.90 - Supervision of high risk , unspecified, unspecified trimester Type & Screen 07/16/25 O09.90 - Supervision of high risk , unspecified, unspecified trimester Rubella IgG 07/16/25 O09.90 - Supervision of high risk , unspecified, unspecified trimester Hepatitis C Antibody 07/16/25 O09.90 - Supervision of high risk , unspecified, unspecifiedtrimester Hepatitis B Surface Antigen 07/16/25 O09.90 - Supervision of high risk , unspecified, unspecified trimester Culture, Urine 07/16/25 O09.90 - Supervision of high risk , unspecified, unspecified trimester Syphilis Antibodies 07/16/25 O09.90 - Supervision of high risk , unspecified, unspecified trimester Chlamydia/GC MARIAH aptima 07/16/25 O09.90 - Supervision of high risk , unspecified, unspecified trimester HIV 07/16/25 O09.90 - Supervision of high risk , unspecified, unspecified trimester Medications: New ondansetron 4 mg PO Q6H PRN 30 tabs 4RF nausea and vomiting O21.9 - Vomiting of , unspecified Comments Comments: Patient oriented to practice and discussed care expectations and screenings. ACOG book offered to patient. Discussed routine and specially indicated labs if needed- patient consents to testing. See problem list details for plan information. Optional screening including maternal carrier screenings, neural tube defect screening, genetic screening options including quad screen, nuchal translucency, sequential screening, and NIPT screening offered to patient and patient chose: declines Clinical Quality Measures Falls Risk Screening/Assistive Devices Have you fallen in the past year?: No 07/29/25 1047 s JAMIEM> Date _ Jazmyne Weinberg CNM Cosigner Signature: Date (if applicable) CC: ~ [facility]11-22-2022 NotePap Smear Specimen AdequacyNovember 2021 5:37pmComment.Satisfactory for evaluation. No endocervical component is identified.An endocervical component is not commonly seen in the patient.[employer] INTERFACED A#[id number] Clinic Work Phone: Comment on above:Satisfactory for evaluation. No endocervical component is identified.An endocervical component is not commonly seen in the patient.10-02-2022 NotePap Smear Specimen AdequacyNovember 2021 5:37pmComment.Satisfactory for evaluation. No endocervical component is identified.An endocervical component is not commonly seen in the patient.[employer] INTERFACED A#[id number] ClinicComment on above: Satisfactory for evaluation. No endocervical component is identified.An endocervical component is not commonly seen in the patient.Evaluation note* Diagnosis Onset Date Resolution Status Acute sinusitis acute acute Supervision of normal first [facility] Work Phone: Evaluation note* Diagnosis Onset Date Resolution Status Acute sinusitis acute acute Supervision of normal first acute acute Supervision of normal first acute [facility] Work Phone: evaluation note* Diagnosis Onset Date Resolution Status acute Supervision of normal first acute acute Rh negative status during acute Supervision of normal first acute acute Rh negative status during acute Supervision of normal first acute acute Rh negative status during acute Supervision of normal first acute acute Rh negative status during acute Supervision of normal first acute [facility] Work Phone: evaluation note* Diagnosis Onset Date Resolution Status acute Rh negative status during acute Supervision of normal first acute acute Rh negative status during acute Supervision of normal first acute acute Rh negative status during acute Supervision of normal first acute Abnormal glucose level acute acute Rh negative status during acute Supervision of normal first acute Abnormal glucose level acute acute Rh negative status during acute Supervision of normal first acute acute Rh negative status during acute Supervision of normal first acute Abnormal glucose level acute acute Rh negative status during acute Supervision of normal first acute False labor after 37 completed weeks of gestation acute [facility] Work Phone: evaluation note* Diagnosis Onset Date Resolution Status Admit Date acute July 10:02am Rh negative status during acute July 29, 2025 10:02am Supervision of high-risk acute July 29, 2025 10:02am Susceptible to Varicella (non-immune), currently in first trimester acute Sept emb2024 10:02am Varicose veins during acute July 29, 2025 10:02am [facility] Work Phone: History and physical note Author Wandy Metcalf [facility] April 15, 2023 8:30am Note Date/Time April 15, 2023 8:30a m [facility] Medical Records Department [address] [place] [address] OB Triage Physician Note 04/15/23 0827 MR#: [id number] Acct: [id number] Name: GEGE GARCIA Rep #:[id number] : 2000 22 From: Wandy Metcalf CNM PCP: Care Physician,No Primary Status :REG CLI Y Location: [id number] HPI - General HPI Narrative GEGE GARCIA, is a 22 F who presents at 37+6 with contractions. denies lof/vb. good fm. Maternal Data Information ALMA Calculator Estimated Delivery Date Method Current WG Current Estimate 04/30/23 LMP (Certain) 37w 6d Other Estimates 04/27/23 Ultrasound #1 38w 2d PFSH PFSH Medical History Hx of thyroid disease Hx: UTI (urinary tract infection) Home Medications multivitamin no.47-iron fum 27 mg-folate no.1 1 mg-dha 300 mg capsule (PNV-DHA)1 cap PO DAILY 09/25/22 [History Last Taken 04/14/23 20:00] Allergy/AdvReac Type Severity Reaction Status Date / Time No Known Allergies Allergy Verified 04/15/23 06:40 Family History Grandfather Lung cancer, Onset Age: 70 Paternal Social History adopted: No household members: spouse housing: house current occupational status: unemployed current occupation: housewife pets and animals: No history of recent travel: No sexually active: Yes Smoking Status: Never smoker alcohol intake: never substance use type: does not use well-balanced diet: daily or most days caffeine: No eating out: rarely or never during the past year weight has: remained stable what type of physical activity do you participate in: none parveen/zoroastrianism: Church seatbelt use: sometimes do you feel safe at home: Yes additional social history: [employer] - [employer] History 1 Elective abortions Hx Para 0 Spontaneous abortions Hx # Term Pregnancies Ectopic pregnancies Hx # Pregnancies Multiple births # of living children Visit Details Expected Delivery Route/Plan Labor Preferences- CB/BF classes: recommended labor support person: [place] labor intervention preferences: [] pain management options preferred: [] cut cord/dad catch: yes :yes PP control planned: nfp/condoms discussed possible routes of delivery and associated risks: special requests: [] Plans Covid status: declines Flu vaccine: declines Tdap vaccine: declines Rhogam: will need at 28 weeks, PRN for bleeding and pp LARC form signed: completed movement and labor precautions reviewed. Problem list reviewed and updated with the most current plan of care details and appropriate orders placed. Relevant counseling for the gestational age provided. Continue routine care and follow up unless otherwise noted in visit notes/problem list details OB Flowsheet Initial Weight: Not Recorded Date -?-?-?-?-?-?-?-?-?-?-?-?- EGA Weight BP Urine Prot -?-?-?-?-?-?-?-?-?-?-?-?- Glucose FHR FuHt Pres Dilation -?-?-?-?-?-?-?-?-?-?-?-?- Effaced St Visit Note 10/02/22 -?-?-?-?-?-?-?-?-?-?-?-?- 10w 0d 112 lb 2 oz 119/75 -?-?-?-?-?-?-?-?-?-?-?-?- 183 -?-?-?-?-?-?-?-?-?-?-?-?- JV- single live IUP measuring 10 weeks 3 days. CRL consistent with LMP. pap and gc/ct collected. 10/30/22 -?-?-?-?-?-?-?-?-?-?-?-?- 14w 0d 112 lb 122/76 Negative -?-?-?-?-?-?-?-?-?--?-?-?- Negative 155 -?-?-?-?-?-?-?-?-?-?-?-?- LC- doing well. no vb/cramping. reviewed nutritional methods for constipation. will obtain nob labs next week.declines afp 11/20/22 -?-?-?-?-?-?-?-?-?-?-?-?- 17w 0d 118 lb 108/69 Negative -?-?-?-?-?-?-?-?-?-?-?-?- Negative 138 -?-?-?-?-?-?-?-?-?-?-?-?- LC- no concerns. has anatomy scheduled.no vb/cramping. 12/18/22 -?-?-?-?-?-?-?-?-?-?-?-?- 21w 0d 122 lb 121/70 Negative -?-?-?-?-?-?-?-?-?-?-?-?- Negative 153 -?-?-?-?-?-?-?-?-?-?-?-?- LC- no concerns. noted some constipation over last couple weeks. resolved. no LOF/VB/Ctx. + Flutters. 01/10/23 -?-?-?-?-?-?-?-?-?-?-?-?- 24w 2d 127 lb 115/71 Negative -?-?-?-?-?-?-?-?-?-?-?-?- Negative 150 24 -?-?-?-?-?-?-?-?-?-?-?-?- KW-no concerns. no LOF/VB/CTX. + FM. US reviewed. 02/11/23 -?-?-?-?-?-?-?-?-?-?-?-?- 28w 6d 131 lb 103/68 Negative -?-?-?-?-?-?-?-?-?-?-?-?- Negative 145 29 -?-?-?-?-?-?-?-?-?-?-?-?- SM- no vb lof go od fm no regular ctx rhogam and cbc gct today declined tdap 03/05/23 -?-?-?-?-?-?-?-?-?-?-?-?- 32w 0d 135 lb 110/68 Negative -?-?-?-?-?-?-?-?-?-?-?-?- Negative 150 31 -?-?-?-?-?-?-?-?-?-?-?-?- LC- LC- no vb/ctx/lof. good fm. having some rib discomforts and round ligament pain. charlene recommended. 03/21/23 -?-?-?-?-?-?-?-?-?-?-?-?- 34w 2d 139 lb 114/72 Negative -?-?-?-?-?-?-?-?-?-?-?-?- Negative 145 33 -?-?-?-?-?-?-?-?-?-?-?-?- LC- no vb/ctx/lo f. good fm. larc signed. 04/04/23 -?-?-?-?-?-?-?-?-?-?-?-?- 36w 2d 140 lb 111/74 Negative -?-?-?-?-?-?-?-?-?-?-?-?- Negative 140 36 0 -?-?-?-?-?-?-?-?-?-?-?-?- 20 -3 LC- no vb/ ctx/lof. good fm. mild yeast infection, not bothersome, declines treatment. gbs obtained today 04/11/23 -?-?-?-?-?-?-?-?-?-?-?-?- 37w 2d 144 lb 8 oz 111/74 Nega tive -?-?-?-?-?-?-?-?-?-?-?-?- Negative 135 36 0 -?-?-?--?-?-?-?-?-?-?-?-?- 50 -3 KW-+FM. no lof/vb. some irregular cramping/lower back pain. in ER last night with GI virus. encouraged hydration KW-+FM. no lof/vb. some irre gular cramping/lower back pain. in ER last night with GI virus. encouraged hydration. GBS neg Notes Visit Date: 11/20/22 Last Updated by: Wandy Metcalf, MAXIMILIAN sister in law currently with a palliative care case. cardiac and genetic anomalies. NST FHR Rate Baby A Baseline: 140 Variability:: Moderate Accelerations:: 15 x 15 Decelerations:: None NST Reactive:: Yes FHR Category:: Category I Uterine Activity:: irregular Assessment & Plan (1) False labor after 37 completed weeks of gestation: COMMENT: no change in cervical exam. labor precautions given PLAN: Patient presents for triage evaluation secondary to contractions. now comfortable FHT: Moderate variability reactive no decelerations category I tracing [place]: irregular Contractions Assessment and plan: Reactive NST, reassuring maternal and status patient discharged to home to follow-up in office on . See problem list details for additional plan information. Charges/Coding Procedures Urinary/Genital 52xxx-59xxx: 06331-66 non-stress test Interp Multi Select Codes Urinary/Genital Urinary/Genital CPT Codes: 67436-55 non-stress test Interp 04/15/23 0830 <Electronically signed by Wandy sandhu CNM> Date _ Wandy Metcalf CNM Cosigner Signature (if applicable): Date CC: MAXIMILIAN Metcalf; No Primary Care Physician ~ Signed [facility] Work Phone: Progress note Author Jazmyne Weinberg [facility] Note Date/Time July 29, 2025 10:47am [facility] [address], [address] [place] [address] OFFICE VISIT Date of Service: 07/29/25 MR#: [id number] Acct: [id number] Name: GEGE GARCIA Rep #: [id number] : 2000 Provider: MAXIMILIAN Weinberg Age/Sex: 24/F [place] [facility]: Signed Intake Vital Signs 11/18/24 09:48 07/29/25 10:19 07/29/25 10:22 Height 5 ft 2 in 5 ft 2 in 5 ft 2 in Weight: 129 lb BMI 23.6 BP 111/68 Intake Visit Reasons: *EST* NOB LMP 05/30, ALMA 03/06 Rn Anesthetist Required: No Is patient in pain?: No Allergies No Known Allergies Allergy (Verified 07/29/25 10:21) Medications ?Medication ?Instructions ?Recorded ?Confirmed ?Type multivit-min no.71-iron fum 28 cap PO 07/16/25 5 History mg-folate no.1 1 mg-dha 300 mg capsule (PNV-Alexander) ondansetron 4 mg disintegrating 4 mg PO Q6H PRN nausea and 07/29/25 07/29/25 Rx tablet vomiting #30 tabs Last Menstrual Period: 05/30/25 : Yes Have you fallen in the past year?: No PFSH PFSH Medical History Vaginal delivery History of prior with IUGR Rh negative status during Hx: UTI (urinary tract infection) Family History Grandfather Lung cancer, Onset Age: 70 Paternal Social History adopted: No household members: spouse and children housing: house number of children: 2 service: No current occupational status: unemployed current occupation: housewife/SAHM pets and animals: No history of recent travel: No sexually active: Yes Smoking Status: Never smoker alcohol intake: never substance use type: does not use well-balanced diet: daily or most days caffeine: No eating out: rarely or never during the past year weight has: remained stable what type of physical activity do you participate in: walking frequency: 3-4 times per week duration: 15-30 minutes/day parveen/zoroastrianism: Church seatbelt use: sometimes do you feel safe at home: Yes additional social history: [employer] - [employer] History 3 Elective abortions Hx Para 2 Spontaneous abortions Hx # Term Pregnancies 2 Ectopic pregnancies Hx # Pregnancies Multiple births # of living children 2 Past Pregnancies Del. Date Name GA/Weeks Outcome Route Bth Weight Gen Labor Lgth Anesthesia Del Locatn Provider FOB 04/23/23 Ankit 39 live - full term 6#14oz Male epid ural [facility] [place] 10/07/24 Esther 37 live - full term 5lbs 6oz Female ep idural [facility] J [place] Delivery Date: 10/07/24 Last Updated by: Ally Babb RN See problem list for complications HPI *EST* NOB LMP 05/30, ALMA 03/06 Details: GEGE GARCIA is a 24 year old who presents for New OB visit. OB Visit ALMA Calculator Estimated Delivery Date Method Current WG Current Estimate 03/06/26 LMP (Certain) 8w 4d Other Estimates 03/06/26 Ultrasound #1 8w 4d Comments: HIV: Urine Culture: Sequential Screen: NIPT Screen: Estimated Due Date: 03/06/26 Expected Delivery Route/Plan Labor Preferences- CB/BF classes: [] labor support person: [] labor intervention preferences: [] pain management options preferred: [] cut cord/dad catch: [] : [] PP control planned: [] discussed possible routes of delivery and associated risks: [] special requests: [] Specific Issue/Plans Covid status: [] Flu vaccine: [] Tdap vaccine: [] Rhogam: [] LARC form signed: [] Problem list reviewed and updated with the most current plan of care details and appropriate orders placed. Relevant counseling for the gestational age provided. Continue routine care and follow up unless otherwise noted in visit notes/problem list details Initial Weight: 129 lb Date -?-?-?-?-?-?-?-?-?-?-?-?- EGA Weight BP Urine Prot -?-?-?-?-?-?-?-?-?-?-?-?- Glucose FHR FuHt Pres Dilation -?-?-?-?-?-?-?-?-?-?-?-?- Effaced St Visit Note 07/29/25 -?-?-?-?-?-?-?-?-?-?-?-?- 8w 4d 129 lb (+0 oz) 111/68 -?-?-?-?-?-?-?-?-?-?-?-?- 172 -?-?-?-?-?-?-?-?-?-?-?-?- KW- CRL 2.04 and cons with dates. declines NIPT Menstrual History Last Menstrual Period: 05/30/25 Reported LMP: definite Normal amount/duration: No (shorter and trestle mechanic than normal) Frequency in days: 28 On hormonal BC at conception: No hCG+: 07/07/25 Antepartum Record Genetic Screening: Congenital Heart Defect: Other, Neural Tube Defect: Other, Hemoglobinopathy Or Carrier: Other, Cystic Fibrosis: Other, Chromosome Abnormality: Other, Yadiel-Sachs: Other, Hemophilia: Other, Intellectual Disability/Autism: Other, Recurrent Loss/Stillbirth: Other, Other Structural Defect: Other, Other Genetic Disease: Partner ( a nephew and neice with meckel syndrome) and Maternal Metabolic Disorder: Other Infection History: Live with someone with TB or Exposed to TB: No, Patient or Partner has history of Genital Herpes: No, Rash or Viral illness since last mentrual period: No, Prior GBS-Infected child: No, History of STD: No, HIV Infection: No, History of Hepatitis: No, Recent travel outside of [place]: No, Concern for hepatitis exposure: No, Varicella immune: No (non-immune) and Covid Vaccinated: No Medical History Medical History: Positive: Varicosities/phlebitis (right leg full length of leg) and Negative: Diabetes, Hypertension, Heart disease, Auto-immune disorder, Kidney disease/UTI, Neurologic/epilepsy, Psychiatric, Depression/ depression, Hepatitis/liver disease, Thyroid dysfunction, Trauma/domestic violence, History of blood transfusions, D (Rh) Sensitized, Pulmonary (e.g.,TB,Asthma), Seasonal allergies, Drug/latex allergies/reactions, Breast, [employer] surgery, Operations/hospitalizations, Anesthetic complications, History of abnormal pap, Uterine anomaly/morenita, Infertility, Anti-retroviral treatment, Relevant family history and Other ACOG First Trimester First Trimester: Desire for , Alcohol, Tobacco Cessation, Illicit/Recreational Drug/Substance Use, Intimate Partner Violence, Barriers to care, Unstable Housing, Communication Barriers, Environmental/Work Hazards, Anticipated Course of Care, Nurtrition and weight gain, Toxoplasmosis Precations, Use of Any medications, Sexual activity, Exercise, Dental Care, Sauna/Hot tub use, Seat Belt use, Childbirth classes/Hospital facilities, , Travel, Indications for Ultrasound and Screening for Aneuploidy Second Trimester Second Trimester: Signs and Symptoms of Labor and Reproductive Life Planning & Contreception; Discussed Tobacco Cessation, Discussed Depression/Anxiety and Discussed Intimate Partner Violence Third Trimester Third Trimester: Pain Management Plans, Labor support person(s), Immediate Larc, Movement Monitoring, Signs and Symptoms of Preeclampsia, Feeding Yes and Family Medical Leave or Disability Forms ROS Const Reports system reviewed and no additional complaints, except as documented, Denies fatigue, Denies headache(s) and Denies lethargy ENT Denies headache(s) Card Reports system reviewed and no additional complaints, except as documented Resp Reports system reviewed and no additional complaints, except as documented GI Reports system reviewed and no additional complaints, except as documented, Denies abdominal pain, Denies constipation, Denies cramping, Denies diarrhea and Denies dyspepsia Reports system reviewed and no additional complaints, except as documented, Denies abnormal vaginal bleeding, Denies difficulty voiding, Denies dyspareunia and Denies dysuria Musc Reports system reviewed and no additional complaints, except as documented Skin/Breast Reports system reviewed and no additional complaints, except as documented Neuro Yes system reviewed and no additional complaints, except as documented and No headache(s) Psych Reports system reviewed and no additional complaints, except as documented, Denies anhedonia and Denies anxiety Endo Reports system reviewed and no additional complaints, except as documented and Denies fatigue Exam Const General: cooperative, healthy appearing and comfortable Neck Neck: normal visual inspection and full ROM Chest Chest palpation & inspection: normal inspection of the chest Breast inspection: normal inspection of the breasts and normal inspection of the axillae Breast palpation: normal palpation of the breasts and normal palpation of the axillae Resp Effort & Inspection: normal respiratory effort and able to speak in complete sentences GI Inspection: normal to inspection Palpation: soft External Female Exam: normal external appearance and normal appearance of the urethra Urethra: normal appearance of the urethra Skin General: no rashes or lesions noted Neuro General: patient alert, patient awake and patient oriented x3 Extrem General: normal to inspection and full ROM Psych Appearance: grossly normal and well kempt Mental Status: mental status grossly normal Mood: congruent mood Affect: normal affect Speech and Movement: speech and movement normal Thought Process: normal Thought Content: normal Coding Level of Care Code OB Routine Diagnoses 8 weeks gestation of Z3A.08 Weeks of gestation: 8 weeks Varicose veins during O22.00 Susceptible to Varicella (non-immune), currently in first trimester Z34.90; Z28.39 Supervision of high-risk O09.90 Rh negative status during O26.899; Z67.91 Assessment and Plan Assessment and Plan (1) : Status: Acute Qualifiers: Weeks of gestation: 8 weeks Qualified Code(s): Z3A.08 - 8 weeks gestation of Comment: declined NIPT & Carrier testing (2) Varicose veins during : Status: Acute Comment: right leg (3) Susceptible to Varicella (non-immune), currently in first trimester: Status: Acute (4) Supervision of high-risk : Status: Acute Comment: , [facility] 03/06/26, PC Esther Pham (5) Rh negative status during : Status: Acute Comment: rhogam @ 28 wks Orders: Orders CBC W/Diff, Automated 07/16/25 O09.90 - Supervision of high risk , unspecified, unspecified trimester Type & Screen 07/16/25 O09.90 - Supervision of high risk , unspecified, unspecified trimester Rubella IgG 07/16/25 O09.90 - Supervision of high risk , unspecified, unspecified trimester Hepatitis C Antibody 07/16/25 O09.90 - Supervision of high risk , unspecified, unspecified trimester Hepatitis B Surface Antigen 07/16/25 O09.90 - Supervision of high risk , unspecified, unspecified trimester Culture, Urine 07/16/25 O09.90 - Supervision of high risk , unspecified, unspecified trimester Syphilis Antibodies 07/16/25 O09.90 - Supervision of high risk , unspecified, unspecified trimester Chlamydia/GC MARIAH aptima 07/16/25 O09.90 - Supervision of high risk , unspecified, unspecified trimester HIV 07/16/25 O09.90 - Supervision of high risk , unspecified, unspecified trimester Medications: New ondansetron 4 mg PO Q6H PRN 30 tabs 4RF nausea and vomiting O21.9 - Vomiting of , unspecified Comments Comments: Patient oriented to practice and discussed care expectations and screenings. ACOG book offered to patient. Discussed routine and specially indicated labs if needed- patient consents to testing. See problem list details for plan information. Optional screening including maternal carrier screenings, neural tube defect screening, genetic screening options including quad screen, nuchal translucency, sequential screening, and NIPT screening offered to patient and patient chose: declines Clinical Quality Measures Falls Risk Screening/Assistive Devices Have you fallen in the past year?: No 07/29/25 3644 <Electronically signed by Jazmyne waters CNM> Date _ Jazmyne Weinberg CNM Cosigner Signature: Date (if applicable) CC: ~ [facility] Work Phone: Reason for referral (narrative)No reason for referral information [facility] Work Phone: Summary Purpose Family History Relationship Condition Age at Onset Recorded Date/T kirsten grandfather Malignant neoplasm of lung 70 Advance Directives No Advanced Directives Records FoundNo Advanced Directives Records Found Chief Complaint and Reason for Visit Chief Complaint nob lmp 07/24/22 Reason for Visit Acute sinusitis Supervision of normal first Chief Complaint nob lmp 07/24/22 est ob OB 18 WK F/U Reason for Visit Acute sinusitis Supervision of normal first Supervision of normal first Chief Complaint nob lmp 07/24/22 est ob OB 18 WK F/U Reason for Visit Acute sinusitis Supervision of normal first Supervision of normal first Chief Complaint est ob OB 18 WK F/U F/U OB 22 WKS 24 WEEK OB F/U EORDERS SUGAR TESTING/ INJECTION? BLOOD TYPE Reason for Visit Supervision of normal first Rh negative status during Supervision of normal first Rh negative status during Supervision of normal first Rh negative status during Supervision of normal first Rh negative status during Supervision of normal first Chief Complaint F/U OB 22 WKS 24 WEEK OB F/U EORDERS SUGAR TESTING/ INJECTION? BLOOD TYPE Encounter for screening for diabetes mellitus 31 WK OB 34 WK OB F/U 36 WEEKS OB OB F/U R/O LABOR R/O LABOR Reason for Visit Rh negative status during Supervision of normal first Rh negative status during Supervision of normal first Rh negative status during Supervision of normal first Abnormal glucose level Rh negative status during Supervision of normal first Abnormal glucose level Rh negative status during Supervision of normal first Rh negative status during Supervision of normal first Abnormal glucose level Rh negative status during Supervision of normal first False labor after 37 completed weeks of gestation Chief Complaint Admit Date *EST* NOB LMP 05/30, [facility] 03/06July 122024 10:02am Reason for Visit Admit Date July 29, 2025 10:02am Rh negative status during [facility] 2024 10:02am Supervision of high-risk [facility] 2024 10:02am Susceptible to Varicella (no n-immune), currently in first trimester July 29, 2025 10:02am Varicose veins during [facility] 2024 10:02am Chief Complaint Admit Date *EST* NOB LMP 05/30, [facility] 03/06July 122024 10:02am 13 wk 3D OB *RESCHED FROM 08/27September 01, 2025 3:19pm Reason for Visit Admit Date July 29, 2025 10:02am Rh negative status during [facility] 2024 10:02am Supervision of high-risk [facility] 2024 10:02am Susceptible to Varicella (no n-immune), currently in first trimester July 29, 2025 10:02am Varicose veins during [facility] 2024 10:02am History of prior with SGA newb orn September 01, 2025 3:19pm September 01, 2025 3 :19pm Rh negative status during [facility] 2024 3:19pm Short interval between pregn ancies complicating , antepartum September 01, 2025 3:19pm Supervision of high-risk Oct[facility] 2024 3:19pm Susceptible to Varicella (no n-immune), currently in first trimester September 01, 2025 3:19pm Varicose veins during September 01, 2025 3:19pm Additional Source Comments INFORMATION SOURCE (unrecogn ized section and content) DATE CREATED AUTHOR 05/07/2018 Will Anton [facility] [place] DATE CREATED AUTHOR AUTHOR'S ORGANIZ ATION 09/03/2025 Jenna [facility]ly [facility] y Hospital Goals (unrecognized section and content) Type Care Experience Labor Preferences-CB /BF classes: recommendedlabor support person: Felipapablo intervention preferences: []pain management options preferred: []cut cord/dad catch: yesbreastfeeding:yesPP control planned: nfp/condomsdiscussed possible routes of delivery and associated risks:special requests: [] Care Experience Labor Preferences-CB /BF classes: nolabor support person: Tahirakwadwo intervention preferences: tubpain management options preferred: epidural ok. Wants to labor in tubcut cord/dad catch: nobreastfeeding: yesPP control planned: discusseddiscussed possible routes of delivery and associated risks: []special requests: [] Care Experience Labor Preferences-CB /BF classes: []labor support person: []labor intervention preferences: []pain management options preferred: []cut cord/dad catch: []: []PP control planned: []discussed possible routes of delivery and associated risks: []special requests: [] Care Teams (unrecognized sec tion and content) Team Status: Active Member Role Status No Primary Care Physician Primary Care Provider Active Team Status: Inactive Member Role Status Dr. Dominique Corbett DO Attending Provider Activ e Team Status: Inactive Member Role Status Dates Wandy Metcalf CNM Attending Provider Active Team Status: Inactive Member Role Status Dates Wandy Metcalf CNM Attending Provider Active No Primary Care Physician Primary Care Provider, Refer ring Provider Active Team Status: Inactive Member Role Status Dr. Dominique Corbett DO Attending Provider, Refe rring Provider Active Team Status: Inactive Member Role Status Dates Wandy Metcalf CNM Attending Provider Active No Primary Care Physician Primary Care Provider Active Team Status: Inactive Member Role Status No Primary Care Physician Primary Care Provider Active Wandy Metcalf CNM Attending Provider Active Team Status: Inactive Member Role Status Dates No Primary Care Physician Primary Care Provider, Refer ring Provider Active Wandy Metcalf CNM Attending Provider Active Team Status: Inactive Member Role Status No Primary Care Physician Primary Care Provider, Refer ring Provider Active Jazmyne Weinberg CNM Attending Provider Active Team Status: Inactive Member Role Status Dates No Primary Care Physician Primary Care Provider, Refer ring Provider Active Dr. Danika Bose MD Attending Provider Active Team Status: Inactive Member Role Status No Primary Care Physician Primary Care Provider Active Jazmyne Weinberg CNM Attending Provider, Referring Pro vider Active Team Status: Active Member Role Status Dates No Primary Care Physician Primary Care Provider Active Dr. Danika Bose MD Referring Provider, Other Provider Active Wandy Metcalf CNM Attending Provider Active Team Status: Inactive Member Role Status Dates No Primary Care Physician Primary Care Provider Active Dr. Danika Bose MD Attending Provider, Referr ing Provider Active Team Status: Active Member Role/Relationship Status Dates No Primary Care Physician Primary care physician Activ e Team Status: Inactive Member Role/Relationship Status Dates No Primary Care Physician Primary care physician Activ e Start: July 29, 2025 End: July 29, 2025 No Primary Care Physician Referring Provider Active Start: July 29, 2025 End: July 29, 2025 Jazmyne Weinberg CNM Attending physician Active Start: July 29, 2025 End: July 29, 2025 Team Status: Active Member Role/Relationship Status Dates No Primary Care Physician Primary care physician Activ e Start: July 29, 2025 Jazmyne Weinberg CNM Attending physician Active Start: July 29, 2025 Jazmyne Weinberg CNM Referring Provider Active S tart: July 29, 2025 Team Status: Inactive Member Role/Relationship Status Dates No Primary Care Physician Primary care physician Activ e Start: July 29, 2025 End: July 29, 2025 Jazmyne Weinberg CNM Attending physician Active Start: July 29, 2025 End: July 29, 2025 Jazmyne Weinberg CNM Referring Provider Active S tart: July 29, 2025 End: July 29, 2025 Team Status: Inactive Member Role/Relationship Status Dates No Primary Care Physician Primary care physician Activ e Start: September 01, 2025 End: September 01, 2025 No Primary Care Physician Referring Provider Active Start: September 01, 2025 End: September 01, 2025 Dr. Danika Bose MD Attending physician Active Start: September 01, 2025 End: September 01, 2025 FOR RECORDS PERTAINING TO PATIENTS WHO ARE OR HAVE BEEN ENROLLED IN A CHEMICAL DEPENDENCY/SUBSTANCEABUSE PROGRAM, SOME INFORMATION MAY BE OMITTED. This clinical summary was aggregated from multiple sources. Caution should be exercised in using it in the provision of clinical care. This summary normalizes information from multiple sources, and as a consequence, information in this document may materially change the coding, format and clinical context of patient data. In addition, data may be omitted in some cases. CLINICAL DECISIONS SHOULD BE BASED ON THE PRIMARY CLINICAL RECORDS. [facility] [employer] [facility]. provides no warranty or guarantee of the accuracy or completeness of information in this document.
== END | disposition home or self-care (01) ==
LOC: US 12:28
PROVIDERS: Referring Provider Obstetrics & Gynecology; Visit Provider Obstetrics & Gynecology
DX: O09.90 Supervision of high risk pregnancy, unspecified, unspecified trimester (principal)
CPT/HCPCS: 76805; 76817